=== PATIENT | male | born 1930 | race Caucasian/White ===

== ENCOUNTER 2018-06-09 10:42 | Inpatient (IN) | payer OTHER, MEDICARE ==
[2018-06-09 11:15] LABS: ARTERIAL BLOOD GAS BASE EXCESS -5.7 meq/l (-2-2); ARTERIAL BLOOD GAS PCO2 34.2 mmHg (35-45); ARTERIAL BLOOD GAS PO2 60.3 mmHg (68-100); ARTERIAL BLOOD GAS pH 7.35 (7.35-7.45)
[2018-06-09] MEDS ORDERED: CEFTRIAXONE 1 MG in DEXTROSE 5%-WATER - 50 ML IVPB ONE (11:17)
[2018-06-09] MEDS ORDERED: AZITHROMYCIN IVPB 500 MG in DEXTROSE 5%-WATER - 250 ML IVPB ONE (11:20)
[2018-06-09] MEDS ORDERED: ACETAMINOPHEN 1000 MG/100 ML VIAL (NON FORMULARY) IVPB ONE (11:22)
[2018-06-09] MEDS ORDERED: ACETAMINOPHEN INJECTION 100 ML IVPB ONE (11:27)
[2018-06-09] MEDS ORDERED: SODIUM CHLORIDE 500 ML IV STA (11:28)
[2018-06-09] MEDS ORDERED: ALBUTEROL SO4 2.5/IPRATROPIUM 0.5 INH SOL 3 ML VIAL.NEB. NEB ONE ×3 (11:32→15:34)
[2018-06-09 11:34] LABS: INR 1.08 (0.83-1.09); PROTHROMBIN TIME (PATIENT) 12.8 SEC (9.7-13.0)
[2018-06-09] MEDS ORDERED: AZITHROMYCIN IVPB 500 MG/250 ML BAG IVPB ONE ×2 (12:06→12:44)
[2018-06-09 12:18] LABS: BASO % 0.2 % (0-2.0); EOS % 0.1 % (0-4.5); HEMATOCRIT 38.2 % (35.4-49); HEMOGLOBIN 12.4 GM/dL (11.7-16.9); LYMPH % 2.5 % (8-40); MCHC 32.4 g/dl (32.0-35.9); MEAN CELL VOLUME 98.7 fl (80-96); MEAN PLT VOLUME 9.2 fl (7.5-11.1); MONO % 6.4 % (3.8-10.2); NEUT % 90.8 % (42.8-82.8); PLATELET COUNT 303 K/MM3 (134-434); RBC 3.87 M/mm3 (4.00-5.60); RDW 12.7 % (11.9-15.9); WHITE BLOOD COUNT 22.2 K/mm3 (4.0-10.0)
[2018-06-09] MEDS ORDERED: CEFTRIAXONE 1 GM/50 ML BAG ONE (12:26)
--- NOTE | 2018-06-09 12:43 | PDOC ---
History of Present Illness - General History Source: EMS, Family Exam Limitations: Clinical Condition - History of Present Illness Initial Comments: 06/09/18 12:49 Patient seen and evaluated immediately upon arrival. This H&P is being recorded prior to admission to the ICU. 88-year-old male with history of dementia, blindness, hypertension brought in by EMS for severe respiratory distress. Patient was in his baseline state of health 12 hours previously; he was noted to be lethargic and dyspneic upon awakening this a.m. Patient had developed dyspnea with minimal exertion will try and ambulate from bed to the bathroom and was noted by his son to become cyanotic and diaphoretic. Upon arrival of EMS, patient was noted to be hypoxemic with room air saturation of 78%. BiPAP was immediately applied with improvement in saturation to 92%. No other history is provided due to patient's clinical condition. Patient's son denies previous fever/chills/nausea/vomiting/ diarrhea/melena/hematochezia. REVIEW OF SYSTEMS Unable to obtain due to clinical condition EXAMINATION CONSTITUTIONAL: Patient is somnolent but easily arousable, tachypneic and tachycardic, able to speak short phrases only; HEAD: Normocephalic; atraumatic EYES: No scleral icterus, conjunctiva are pink ENMT: mm-dry NECK: Supple; non-tender; no jvd, no bruits CARD: Tachycardic; Normal S1, S2; no murmurs, rubs, or gallops RESP: Tachypneic and tachycardic; decreased breath sounds at the left base ABD: Soft, non-distended; non-tender; no palpable organomegaly, no palpable hernias EXT: + Minimal lower extremity edema bilaterally (left greater than right); bilateral onychomycosis is noted SKIN: Warm, dry, no petechia NEURO: Somnolent but easily arousable, follows commands, gait-deferred <Anand New - Last Filed: 06/09/18 13:16> <Maria G Hernandez - Last Filed: 06/09/18 13:19> - General Chief Complaint: Respiratory Distress Stated Complaint: DIFFCULTY BREATHING Time Seen by Provider: 06/09/18 11:06 Past History - Past Medical History Cardiac Disorders: Yes ("irregular Heart beat") COPD: No Dementia: Yes Hypercholesterolemia: Yes Psychiatric Problems: Yes (depression) - Immunization History Immunization Up to Date: Yes - Suicide/Smoking/Psychosocial Hx Smoking History: Never smoked Hx Alcohol Use: No Substance Use Type: None <Anand New - Last Filed: 06/09/18 13:16> <Maria G Hernandez - Last Filed: 06/09/18 13:19> - Past Medical History Allergies/Adverse Reactions: Allergies Allergy/AdvReac Type Severity Reaction Status Date / Time No Known Allergies Allergy Verified 06/09/18 10:48 Home Medications: Ambulatory Orders Aspirin [ASA -] 81 mg PO DAILY 07/28/13 Atorvastatin Ca [Lipitor -] 10 mg PO DAILY 07/28/13 Cholecalciferol (Vitamin D3) [Vitamin D] 1,000 unit PO DAILY 07/28/13 Diltiazem HCl [Cardizem] 120 mg PO DAILY 07/28/13 Duloxetine HCl [Cymbalta -] 30 mg PO DAILY 07/28/13 Hydrocodone/Ibuprofen [Vicoprofen 200-7.5 mg Tab] 1 each PO PRN 07/28/13 Magnesium 500 mg PO DAILY 07/28/13 Multivitamin with Minerals [Multiple Vitamin] 1 each PO DAILY 07/28/13 Pregabalin [Lyrica] 50 mg PO DAILY 07/28/13 Vitamin B Complex [B-50 Complex] 1 each PO DAILY 07/28/13 *Physical Exam - Vital Signs Last Vital Signs Temp Pulse Resp BP Pulse Ox 122 H 26 H 126/66 95 06/09/18 10:48 06/09/18 10:48 06/09/18 10:48 06/09/18 10:48 <Anand New - Last Filed: 06/09/18 13:16> - Vital Signs Last Vital Signs Temp Pulse Resp BP Pulse Ox 122 H 26 H 126/66 95 06/09/18 10:48 06/09/18 10:48 06/09/18 10:48 06/09/18 10:48 <Maria G Hernandez - Last Filed: 06/09/18 13:19> ED Treatment Course - LABORATORY CBC & Chemistry Diagram: 06/09/18 12:08 06/09/18 12:08 - ADDITIONAL ORDERS Additional order review: Laboratory Results 06/09/18 06/09/18 06/09/18 11:05 11:05 11:05 PT with INR 12.80 INR 1.08 D-Dimer Anticoagulation Therapy ABG pH ABG pCO2 at Pt Temp ABG pO2 at Pt Temp ABG HCO3 ABG O2 Sat (Measured) ABG O2 Content ABG Base Excess O2 Delivery Device Oxygen Flow Rate Vent Mode Vent Rate Mechanical Rate Pressure Support Vent Sodium Cancelled Potassium Cancelled Chloride Cancelled Carbon Dioxide Cancelled Anion Gap Cancelled BUN Cancelled Creatinine Cancelled Creat Clearance w eGFR Cancelled Random Glucose Cancelled Lactic Acid 6.4 H* Calcium Cancelled Total Bilirubin Cancelled AST Cancelled ALT Cancelled Alkaline Phosphatase Cancelled Creatine Kinase Cancelled Troponin I Cancelled B-Natriuretic Peptide Cancelled Total Protein Cancelled Albumin Cancelled 06/09/18 06/09/18 11:05 10:55 PT with INR INR D-Dimer 1945 H Anticoagulation Therapy No Result Required. ABG pH 7.35 ABG pCO2 at Pt Temp 34.2 L ABG pO2 at Pt Temp 60.3 L ABG HCO3 18.6 L ABG O2 Sat (Measured) 89.0 L ABG O2 Content 15.4 ABG Base Excess -5.7 L O2 Delivery Device No Result Required. Oxygen Flow Rate No Result Required. Vent Mode No Result Required. Vent Rate No Result Required. Mechanical Rate No Result Required. Pressure Support Vent No Result Required. Sodium Potassium Chloride Carbon Dioxide Anion Gap BUN Creatinine Creat Clearance w eGFR Random Glucose Lactic Acid Calcium Total Bilirubin AST ALT Alkaline Phosphatase Creatine Kinase Troponin I B-Natriuretic Peptide Total Protein Albumin 06/09/18 12:08 RBC 3.87 L MCV 98.7 H MCHC 32.4 RDW 12.7 MPV 9.2 Neutrophils % 90.8 H Lymphocytes % 2.5 L D Monocytes % 6.4 Eosinophils % 0.1 D Basophils % 0.2 - RADIOLOGY Radiology Studies Ordered: Category Date Time Status CHEST X-RAY PORTABLE* [RAD] Stat Radiology 06/09/18 10:53 Completed - Medications Given in the ED: ED Medications Discontinued Medications Generic Name Dose Route Start Last Admin Trade Name Freq PRN Reason Stop Dose Admin Acetaminophen 1,000 mg 06/09/18 11:22 06/09/18 11:31 Ofirmev Injection - IVPB 06/09/18 11:23 1,000 mg ONCE ONE Administration Albuterol/Ipratropium 1 amp 06/09/18 11:46 06/09/18 12:00 Duoneb - NEB 06/09/18 11:47 1 amp ONCE ONE Administration Ceftriaxone Sodium 1 mg/ 50 mls @ 100 mls/hr 06/09/18 11:17 06/09/18 12:32 Dextrose IVPB 06/09/18 11:46 100 mls/hr ONCE ONE Administration Azithromycin 500 mg/ Dextrose 250 mls @ 250 mls/hr 06/09/18 11:20 06/09/18 11 :40 IVPB 06/09/18 12:19 250 mls/hr ONCE ONE Administration Sodium Chloride 500 mls @ 500 mls/hr 06/09/18 11:28 06/09/18 12:00 Normal Saline - IV 06/09/18 12:27 500 mls/hr ASDIR STA Administration <Anand New - Last Filed: 06/09/18 13:16> - LABORATORY CBC & Chemistry Diagram: 06/09/18 12:08 06/09/18 12:08 - ADDITIONAL ORDERS Additional order review: Laboratory Results 06/09/18 06/09/18 06/09/18 12:08 11:05 11:05 PT with INR 12.80 INR 1.08 D-Dimer Anticoagulation Therapy ABG pH ABG pCO2 at Pt Temp ABG pO2 at Pt Temp ABG HCO3 ABG O2 Sat (Measured) ABG O2 Content ABG Base Excess O2 Delivery Device Oxygen Flow Rate Vent Mode Vent Rate Mechanical Rate Pressure Support Vent Sodium 140 Potassium 5.0 Chloride 108 H Carbon Dioxide 25 Anion Gap 8 BUN 31 H Creatinine 2.1 H Creat Clearance w eGFR 29.89 Random Glucose 184 H Lactic Acid 6.4 H* Calcium 9.4 Total Bilirubin 0.6 AST 37 ALT 21 Alkaline Phosphatase 115 Creatine Kinase 266 Troponin I 5.51 H* B-Natriuretic Peptide Total Protein 6.4 Albumin 3.2 L 06/09/18 06/09/18 06/09/18 11:05 11:05 10:55 PT with INR INR D-Dimer 1945 H Anticoagulation Therapy No Result Required. ABG pH 7.35 ABG pCO2 at Pt Temp 34.2 L ABG pO2 at Pt Temp 60.3 L ABG HCO3 18.6 L ABG O2 Sat (Measured) 89.0 L ABG O2 Content 15.4 ABG Base Excess -5.7 L O2 Delivery Device No Result Required. Oxygen Flow Rate No Result Required. Vent Mode No Result Required. Vent Rate No Result Required. Mechanical Rate No Result Required. Pressure Support Vent No Result Required. Sodium Cancelled Potassium Cancelled Chloride Cancelled Carbon Dioxide Cancelled Anion Gap Cancelled BUN Cancelled Creatinine Cancelled Creat Clearance w eGFR Cancelled Random Glucose Cancelled Lactic Acid Calcium Cancelled Total Bilirubin Cancelled AST Cancelled ALT Cancelled Alkaline Phosphatase Cancelled Creatine Kinase Cancelled Troponin I Cancelled B-Natriuretic Peptide Cancelled Total Protein Cancelled Albumin Cancelled 06/09/18 12:08 RBC 3.87 L MCV 98.7 H MCHC 32.4 RDW 12.7 MPV 9.2 Neutrophils % 90.8 H Lymphocytes % 2.5 L D Monocytes % 6.4 Eosinophils % 0.1 D Basophils % 0.2 - Medications Given in the ED: ED Medications Discontinued Medications Generic Name Dose Route Start Last Admin Trade Name Freq PRN Reason Stop Dose Admin Acetaminophen 1,000 mg 06/09/18 11:22 06/09/18 11:31 Ofirmev Injection - IVPB 06/09/18 11:23 1,000 mg ONCE ONE Administration Albuterol/Ipratropium 1 amp 06/09/18 11:46 06/09/18 12:00 Duoneb - NEB 06/09/18 11:47 1 amp ONCE ONE Administration Ceftriaxone Sodium 1 mg/ 50 mls @ 100 mls/hr 06/09/18 11:17 06/09/18 12:32 Dextrose IVPB 06/09/18 11:46 100 mls/hr ONCE ONE Administration Azithromycin 500 mg/ Dextrose 250 mls @ 250 mls/hr 06/09/18 11:20 06/09/18 11 :40 IVPB 06/09/18 12:19 250 mls/hr ONCE ONE Administration Sodium Chloride 500 mls @ 500 mls/hr 06/09/18 11:28 06/09/18 12:00 Normal Saline - IV 06/09/18 12:27 500 mls/hr ASDIR STA Administration <Maria G Hernandez - Last Filed: 06/09/18 13:19> Medical Decision Making - Critical Care Time Total Critical Care Time (minutes): 65 Critical Care Statement: The care of this patient involved high complexity decision making to prevent further life threatening deterioration of the patient 's condition and/or to evaluate & treat vital organ system(s) failure or risk of failure. - Medical Decision Making 06/09/18 12:57 88-year-old male with history of dementia,, blindness and hypertension presents with respiratory distress, fever of 102 and left lower lobe infiltrate on the chest x-ray. Community-acquired pneumonia suspected. Patient's condition stabilized on BiPAP. Blood cultures obtained. lactic acid is elevated. EKG shows ST segment depressions in 1 and aVL as well as Q waves in [address] segment elevation. I do not suspect acute ST elevation [place] at this time. We' ll administer ceftriaxone and Zithromax as well as IV fluid resuscitation. Patient seen and evaluated by Dr. Feliz of critical care. Accepted to the ICU. 06/09/18 13:13 Patient reassessed. Patient clinically improved with decreased respiratory rate of 25 at this time. On FiO2 of 60%, saturation is noted to be 96%. CBC reveals significant leukocytosis with predominance of neutrophils. CMP reveals elevated BUN and creatinine consistent with history of present illness. Troponin is noted to be 5.51. Will consult cardiology. There is no indication for PTCI at this time. We'll administer aspirin. Patient reports that he's been chest pain- free since arrival in the ED. Will admit to the ICU. <Anand New - Last Filed: 06/09/18 13:16> - Medical Decision Making 06/09/18 13:[address] Guerrero, spoke with the service, waiting for a call back. 06/09/18 13:[address]. Aguilera is aeronautical engineer, waiting for a call back. <Maria G Hernandez - Last Filed: 06/09/18 13:19> *DC/Admit/Observation/Transfer - Discharge Dispostion Decision to Admit order: Yes <Anand New - Last Filed: 06/09/18 13:16> <Maria G Hernandez - Last Filed: 06/09/18 13:19> Diagnosis at time of Disposition: JOSE (acute kidney injury) Pneumonia Qualifiers: Pneumonia type: due to unspecified organism Laterality: left Lung location: lower lobe of lung Qualified Code(s): J18.1 - Lobar pneumonia, unspecified organism Acute myocardial infarction Qualifiers: Myocardial infarction type: unspecified Involved coronary artery: unspecified coronary artery Qualified Code(s): I21.9 - Acute myocardial infarction, unspecified - Discharge Dispostion Condition at time of disposition: Critical - Referrals Referrals: Solitario Piña MD [Primary Care Provider] - - Patient Instructions - Post Discharge Activity
[2018-06-09 12:51] LABS: ALBUMIN 3.2 g/dl (3.4-5.0); ALK PHOS 115 U/L (45-117); ANION GAP 8 MMOL/L (8-16); BILIRUBIN,TOTAL 0.6 mg/dL (0.2-1); BLOOD UREA NITROGEN 31 mg/dL (7-18); CALCIUM 9.4 mg/dL (8.5-10.1); CHLORIDE 108 mmol/L (98-107); CO2 25 mmol/L (21-32); CREATININE 2.1 mg/dL (0.55-1.3); GLUCOSE,RANDOM 184 mg/dL (74-106); SGOT/AST 37 U/L (15-37); SGPT/ALT 21 U/L (13-61); SODIUM 140 mmol/L (136-145); TOT PROT 6.4 g/dl (6.4-8.2)
[2018-06-09] MEDS ORDERED: ASPIRIN 81 MG CHEWABLE TABLETS PO ONE (13:00)
[2018-06-09] MEDS ORDERED: ALBUTEROL SO4 0.083% IH SOL 2.5 MG/3 ML VIAL.NEB. NEB PRN (13:19)
[2018-06-09] MEDS ORDERED: ASPIRIN 81 MG CHEWABLE TABLETS ONE (13:24)
[2018-06-09 13:45] LABS: ANISOCYTOSIS 3+; MACROCYTOSIS 0; PLATELET ESTIMATE NORMAL
[2018-06-09 13:57] LABS: N-TERMINAL BNP 7664.6 pg/ml (5-450); PHOSPHOROUS 3.2 mg/dL (2.5-4.9)
[2018-06-09] MEDS ORDERED: HEPARIN NA (PORCINE) 5,000 UNITS/ML 1ML VIAL SQ SCH (14:00)
--- NOTE | 2018-06-09 14:06 | HP ---
Admitting History and Physical - Primary Care Physician PCP: Solitario Piña - Admission Chief Complaint: Unable to obtain History of Present Illness: Mr Millard is an 88 year old male with dementia who is coming in with shortness of breath. History comes from son at bedside as patient is in respiratory distress and has dementia and per son would not be able to give history. Son states that this morning patient got out of bed and fell back into bed, however this is not unusual as patient normally does not get up on first try. However today when he was able to get up he began to feel clammy and stated he couldn't breathe. Son says he had to support him more than normal and he was getting tired very rapidly. Because of this he was brought in. Son states that patient appeared in his normal state of health, he says he was complaining of chest pain however this is a chronic complaint for at least a year and he was seen in the outpatient setting for this. Son did not note fevers , sick contacts, difficulty swallowing, coughing, vomiting, diarrhea, constipation, change in urination habits, or swelling. 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 Cardiovascular: Yes: Hyperlipdemia - Past Surgical History Past Surgical History: Yes: Prostatectomy - Smoking History Smoking history: Never smoked - Alcohol/Substance Use Hx Alcohol Use: No History of Substance Use: reports: None - Social History Usual Living Arrangement: Yes: With Child ADL: Family Assistance History of Recent Travel: No Home Medications - Allergies Allergies/Adverse Reactions: Allergies Allergy/AdvReac Type Severity Reaction Status Date / Time No Known Allergies Allergy Verified 06/09/18 10:48 - Home Medications Home Medications: Ambulatory Orders Aspirin [ASA -] 81 mg PO DAILY 07/28/13 Atorvastatin Ca [Lipitor -] 10 mg PO DAILY 07/28/13 Cholecalciferol (Vitamin D3) [Vitamin D] 2,000 unit PO DAILY 07/28/13 Diltiazem HCl [Cardizem] 180 mg PO DAILY 07/28/13 Duloxetine HCl [Cymbalta -] 30 mg PO BID 07/28/13 Multivitamin with Minerals [Multiple Vitamin] 1 each PO DAILY 07/28/13 Vitamin B Complex [B-50 Complex] 1 each PO DAILY 07/28/13 Bioflavonoids, Orange [Orange Bioflavonoids] 1,000 mg PO DAILY 06/09/18 Cyanocobalamin [Vitamin B12 -] 500 mcg PO DAILY 06/09/18 Donepezil HCl [Aricept] 23 mg PO DAILY 06/09/18 Meloxicam [Mobic] 15 mg PO DAILY 06/09/18 Memantine HCl [Namenda Xr] 28 mg PO DAILY 06/09/18 Methylphenidate HCl [Ritalin LA] 10 mg PO DAILY 06/09/18 Turm/Ging/Manas/Yuc/Finesse/Laura/Hor [Tumersaid Tablet] 500 each PO BID 06/09/18 Vitamin E 400 unit PO DAILY 06/09/18 Family Disease History - Family Disease History Family Disease History: Other: Brother (dementia), Sister (dementia) Review of Systems Unable to obtain ROS, reason: dementia, sepsis Physical Examination Vital Signs: Vital Signs Temperature 38.8 C H 06/09/18 11:35 Pulse Rate 120 H 06/09/18 11:30 Respiratory Rate 22 H 06/09/18 11:30 Blood Pressure 126/64 06/09/18 11:30 O2 Sat by Pulse Oximetry (%) 95 06/09/18 10:48 Constitutional: Yes: Mild Distress, Obese Eyes: Yes: Conjunctiva Clear, PERRL HENT: Yes: Atraumatic, Normocephalic Cardiovascular: Yes: Tachycardia. No: Gallop, Murmur, Rub Respiratory: Yes: On BiPap, Rhonchi (bilateral), Tachypnea. No: Regular, CTA Bilaterally, Rales, Wheezes Gastrointestinal: Yes: Normal Bowel Sounds, Soft. No: Distention, Tenderness Extremities: Yes: WNL Edema: Yes Edema: LLE: 1+, RLE: 1+ Labs: CBC, BMP 06/09/18 12:08 06/09/18 12:08 Imaging - Results Chest X-ray: Report Reviewed, Image Reviewed Problem List - Problems (1) Septic shock Assessment/Plan: -secondary to pneumonia -as evidenced by fevers, leukocytosis, metabolic encephalopathy, JOSE, and respiratory failure -admit to ICU -received rocephin and zithromax in the ED -continue IVF Code(s): A41.9 - SEPSIS, UNSPECIFIED ORGANISM; R65.21 - SEVERE SEPSIS WITH SEPTIC SHOCK (2) Pneumonia Assessment/Plan: -suspect CAP -but with septic shock -consult ID, may need broad spectrum antibiotics -ICU admission Code(s): J18.9 - PNEUMONIA, UNSPECIFIED ORGANISM Qualifiers: Pneumonia type: due to unspecified organism Laterality: left Lung location: lower lobe of lung Qualified Code(s): J18.1 - Lobar pneumonia, unspecified organism (3) Acute myocardial infarction Assessment/Plan: -case d/w Dr Aguilera -elevated troponin concerning -given aspirin in the ED -start on heparin gtt Code(s): I21.9 - ACUTE MYOCARDIAL INFARCTION, UNSPECIFIED Qualifiers: Myocardial infarction type: unspecified Involved coronary artery: unspecified coronary artery Qualified Code(s): I21.9 - Acute myocardial infarction, unspecified (4) JOSE (acute kidney injury) Assessment/Plan: -hydration -monitor for improvement Code(s): N17.9 - ACUTE KIDNEY FAILURE, UNSPECIFIED (5) Acute respiratory failure with hypoxia Assessment/Plan: -support with BIPAP -management as above -may need intubation if worsens Code(s): J96.01 - ACUTE RESPIRATORY FAILURE WITH HYPOXIA (6) Acute metabolic encephalopathy Assessment/Plan: -secondary to septic shock -treat underlying cause Code(s): G93.41 - METABOLIC ENCEPHALOPATHY (7) Dementia Assessment/Plan: -monitor Code(s): F03.90 - UNSPECIFIED DEMENTIA WITHOUT BEHAVIORAL DISTURBANCE Assessment/Plan 62 minutes spent in critical care time with this patient
[2018-06-09] MEDS ORDERED: HEPARIN NA (PORCINE) 5,000 UNITS/ML 1ML VIAL IVPUSH PRN ×2 (14:18)
--- NOTE | 2018-06-09 14:18 | CONSULT ---
Consultation: REQUESTING PROVIDER: Anand New CONSULT REQUEST: We have been asked to medically evaluate this patient for acute respiratory failure secondary to sepsis/pneumonia. 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 Was in his baseline state of health 12 hours previously; he was noted to be lethargic and dyspneic upon awakening this a.m. Patient had developed dyspnea with minimal exertion will try and ambulate from bed to the bathroom and was noted by his son to become cyanotic and diaphoretic. Upon arrival of EMS , patient was noted to be hypoxemic with room air saturation of 78%. BiPAP was immediately applied with improvement in saturation to 92%. No other history is provided due to patient's clinical condition. Patient's son denies previous fever/chills/nausea/vomiting/diarrhea/melena/hematochezia. REVIEW OF SYSTEMS: As per HPI PHYSICAL EXAMINATION Vital Signs - 24 hr 06/09/18 06/09/18 06/09/18 10:48 11:30 11:35 Temperature 102 F H Pulse Rate 122 H Pulse Rate [ 120 H Apical] Respiratory 26 H 22 H Rate Blood Pressure 126/66 Blood Pressure 126/64 [Left Arm] O2 Sat by Pulse 95 Oximetry (%) GENERAL: Lethargic, arousable, alerts to voice and sternal rub HEAD: NC/AT EYES: Pinpoint pupils EARS, NOSE, THROAT: Moist mucous membranes. NECK: supple without lymphadenopathy LUNGS: Decreased breath sounds on left, diffuse wheezing/rhonchi HEART: Tachycardic S1S2 nl ABDOMEN: +bs, soft, NT, ND EXTREMITIES: 2+ pulses, warm, well-perfused, non-pitting edema b/l NEUROLOGICAL: Moves 4 extremities spontaneously and complies with commands, motor strength and sensation grossly intact throughout Laboratory Results - last 24 hr 06/09/18 06/09/18 06/09/18 10:55 11:05 11:05 WBC RBC Hgb Hct MCV MCH MCHC RDW Plt Count MPV Absolute Neuts (auto) Neutrophils % Lymphocytes % Monocytes % Eosinophils % Basophils % Nucleated RBC % PT with INR INR D-Dimer 1945 H Anticoagulation Therapy No Result Required. ABG pH 7.35 ABG pCO2 at Pt Temp 34.2 L ABG pO2 at Pt Temp 60.3 L ABG HCO3 18.6 L ABG O2 Sat (Measured) 89.0 L ABG O2 Content 15.4 ABG Base Excess -5.7 L O2 Delivery Device No Result Required. Oxygen Flow Rate No Result Required. Vent Mode No Result Required. Vent Rate No Result Required. Mechanical Rate No Result Required. Pressure Support Vent No Result Required. Sodium Cancelled Potassium Cancelled Chloride Cancelled Carbon Dioxide Cancelled Anion Gap Cancelled BUN Cancelled Creatinine Cancelled Creat Clearance w eGFR Cancelled Random Glucose Cancelled Lactic Acid Calcium Cancelled Total Bilirubin Cancelled AST Cancelled ALT Cancelled Alkaline Phosphatase Cancelled Creatine Kinase Cancelled CK-MB (CK-2) Troponin I Cancelled B-Natriuretic Peptide Cancelled Total Protein Cancelled Albumin Cancelled 06/09/18 06/09/18 06/09/18 11:05 11:05 12:08 WBC 22.2 H RBC 3.87 L Hgb 12.4 Hct 38.2 MCV 98.7 H MCH 32.0 MCHC 32.4 RDW 12.7 Plt Count 303 MPV 9.2 Absolute Neuts (auto) 20.2 H Neutrophils % 90.8 H Lymphocytes % 2.5 L D Monocytes % 6.4 Eosinophils % 0.1 D Basophils % 0.2 Nucleated RBC % 0 PT with INR 12.80 INR 1.08 D-Dimer Anticoagulation Therapy ABG pH ABG pCO2 at Pt Temp ABG pO2 at Pt Temp ABG HCO3 ABG O2 Sat (Measured) ABG O2 Content ABG Base Excess O2 Delivery Device Oxygen Flow Rate Vent Mode Vent Rate Mechanical Rate Pressure Support Vent Sodium Potassium Chloride Carbon Dioxide Anion Gap BUN Creatinine Creat Clearance w eGFR Random Glucose Lactic Acid 6.4 H* Calcium Total Bilirubin AST ALT Alkaline Phosphatase Creatine Kinase CK-MB (CK-2) Troponin I B-Natriuretic Peptide Total Protein Albumin 06/09/18 12:08 WBC RBC Hgb Hct MCV MCH MCHC RDW Plt Count MPV Absolute Neuts (auto) Neutrophils % Lymphocytes % Monocytes % Eosinophils % Basophils % Nucleated RBC % PT with INR INR D-Dimer Anticoagulation Therapy ABG pH ABG pCO2 at Pt Temp ABG pO2 at Pt Temp ABG HCO3 ABG O2 Sat (Measured) ABG O2 Content ABG Base Excess O2 Delivery Device Oxygen Flow Rate Vent Mode Vent Rate Mechanical Rate Pressure Support Vent Sodium 140 Potassium 5.0 Chloride 108 H Carbon Dioxide 25 Anion Gap 8 BUN 31 H Creatinine 2.1 H Creat Clearance w eGFR 29.89 Random Glucose 184 H Lactic Acid Calcium 9.4 Total Bilirubin 0.6 AST 37 ALT 21 Alkaline Phosphatase 115 Creatine Kinase 266 CK-MB (CK-2) 31.4 H Troponin I 5.51 H* B-Natriuretic Peptide Total Protein 6.4 Albumin 3.2 L Active Medications Generic Name Dose Route Start Last Admin Trade Name Freq PRN Reason Stop Dose Admin Albuterol Sulfate 1 amp 06/09/18 13:19 Ventolin 0.083% Nebulizer Soln - NEB Q4H PRN SHORT OF BREATH/WHEEZING Albuterol/Ipratropium 1 amp 06/09/18 16:00 Duoneb - NEB RQID FLAVIO Aspirin 81 mg 06/10/18 10:00 Asa - PO DAILY FLAVIO Atorvastatin Calcium 10 mg 06/10/18 10:00 Lipitor - PO DAILY FLA[facility]IO Chlorhexidine Gluconate 1 applic 06/09/18 22:00 Hibiclens For Decolonization - TP HS [facility]LA[facility]IO Cholecalciferol 1,000 unit 06/10/18 10:00 Vitamin D3 - PO DAILY FLA[facility]IO Heparin Sodium (Porcine) 5,000 unit 06/09/18 14:00 Heparin - SQ Q8H-IV [facility]LA[facility]IO Mupirocin 1 applic 06/09/18 22:00 Bactroban Ointment (For Decolonization) - NS 06/14/18 21:59 BID FLA[facility]IO ASSESSMENT/PLAN: 88 y/o M w/ PMHx dementia, legal blindness, HTN, unknown cardiac Hx (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 CXR shows LLL consolidation. #Pulmonary -acute hypoxic respiratory failure 2/2 PNA -on BiPAP, maintain O2sat > 90% -Duonebs standing/albuterol PRN -hold steroids at this time -BCx, Sputum Cx, urine antigens pending -repeat ABG in AM #ID -severe sepsis: T 102, HR 122, RR 26, stable BP, WBC 22.2, lactate 6.4 -LLL consolidation on CXR -ID consulted (Dr. Carlson following) -empiric azithromycin/ceftriaxone given -trend lactic acid -LR 75 #cardiac -troponin 5.51 -EKG w/ ST depressions in I and AVL suggesting acute ischemia, Q waves in 3 -full dose ASA given in ED -restart home ASA 81 in AM -started empiric heparin gtt -cardiology consulted, awaiting recs -repeat troponin EKG in PM -echo pending -BNP >7000 -I&O #renal -JOSE: Cr 2.1 (last known 1.3 in 2016) -U Cr, U lytes pending -avoid nephrotoxic agents -LR 75 #GI -LFTs wnl #FEN -LR @ 75 -monitor BMP -NPO on BiPAP #PPx -DVT: heparin gtt -GI: not indicated at this time #Dispo -We will continue to follow the patient in the ICU. Thank you for this consultative opportunity. Visit type - Emergency Visit Emergency Visit: Yes Care time: The patient presented to the Emergency Department on the above date and was hospitalized for further evaluation of their emergent condition. - New Patient This patient is new to me today: Yes Date on this admission: 06/09/18 - Critical Care Critical Care patient: Yes Total Critical Care Time (in minutes): 40 Critical Care Statement: The care of this patient involved high complexity decision making to prevent further life threatening deterioration of the patient 's condition and/or to evaluate & treat vital organ system(s) failure or risk of failure.
--- NOTE | 2018-06-09 14:22 | PN ---
Teaching Attending Note Name of Resident: Jareth Kauffman ATTENDING PHYSICIAN STATEMENT I saw and evaluated the patient. I reviewed the resident's note and discussed the case with the resident. I agree with the resident's findings and plan as documented. SUBJECTIVE: Pt seen and examined in the ER. Briefly, 88yo male with h/o HTN, blindness, Alzheimer's dementia who presents with respiratory distress. This AM, son found him lethargic, diaphoretic. EMS noted hypoxia to 78% on room air. Started on BiPAP with improvement. CXR showing LLL infiltrate. Pt unable to provide further history at this time. OBJECTIVE: Vital Signs Period Temp Pulse Resp BP Sys/Boyer Pulse Ox Last 24 Hr 102 F 120-122 22-26 126-126/64-66 95 Intake & Output 06/06/18 06/07/18 06/08/18 06/09/18 23:59 23:59 23:59 23:59 Intake Total 400 Balance 400 Weight 92.986 kg Gen: lethargic on BiPAP Heart: tachycardic, regular Lung: scattered rhonchi Abd: soft, nontender Ext: no edema CBC, BMP 06/09/18 12:08 06/09/18 12:08 Active Medications Albuterol Sulfate (Ventolin 0.083% Nebulizer Soln -) 1 amp NEB Q4H PRN PRN Reason: SHORT OF BREATH/WHEEZING Albuterol/Ipratropium (Duoneb -) 1 amp NEB RQID [facility] Aspirin (Asa -) 81 mg PO DAILY F[facility]IO Atorvastatin Calcium (Lipitor -) 10 mg PO DAILY [facility] Chlorhexidine Gluconate (Hibiclens For Decolonization -) 1 applic TP HS [facility] Cholecalciferol (Vitamin D3 -) 1,000 unit PO DAILY [facility] Heparin Sodium (Porcine) (Heparin -) 5,000 unit SQ Q8H-IV [facility] Mupirocin (Bactroban Ointment (For Decolonization) -) 1 applic NS BID FLA[facility]IO Stop: 06/14/18 21:59 ASSESSMENT AND PLAN: Acute Hypoxic Respiratory Failure Pneumonia Severe Sepsis Lactic Acidosis Acute Kidney Injury +Troponins/rule out Acute NSTEMI Dementia - IV antibiotics - f/u cultures, send urinary antigens - IVF - monitor urine output, creatinine - trend lactate - trend cardiac enzymes - echocardiogram - beta carole, ASA, statin - would start empiric anticoagulation - cardiology eval - O2 to keep Spo2 >90% - BiPAP to assist in work of breathing - aspiration precautions - DVT prophylaxis - ICU monitoring critical care time spent in reviewing chart, evaluating patient and formulating plan 35 min
--- NOTE | 2018-06-09 14:50 | EKG ---
Test Reason : Blood Pressure : / mmHG Vent. Rate : 110 BPM Atrial Rate : 110 BPM P-R Int : 166 ms QRS Dur : 080 ms QT Int : 358 ms P-R-T Axes : 029 009 031 degrees QTc Int : 484 ms SINUS TACHYCARDIA LOW VOLTAGE QRS CANNOT RULE OUT ANTERIOR INFARCT , AGE UNDETERMINED ABNORMAL ECG WHEN COMPARED WITH ECG OF 28-JUL-2013 20:17, PREMATURE ATRIAL COMPLEXES ARE NO LONGER PRESENT VENT. RATE HAS INCREASED BY 42 BPM MINIMAL CRITERIA FOR ANTERIOR INFARCT ARE NOW PRESENT ST NOW DEPRESSED IN LATERAL LEADS INVERTED T WAVES HAVE REPLACED NONSPECIFIC T WAVE ABNORMALITY IN INFERIOR LEADS Confirmed by MEAGAN GUZMAN, GARTH ([id number]) on 06/09/2018 2:50:12 PM Referred By: Confirmed By:GARTH RHODES MD
[2018-06-09] MEDS ORDERED: LACTATED RINGERS SOLUTION 1,000 ML/1,000 ML INFUS.BAG IV SCH (15:00)
--- NOTE | 2018-06-09 15:05 | CON.CARD ---
Cardiology Consult (text) - Consultation Consultation Note: cc: sob hpi: 88 m hx dementia, htn, hld, prostate ca here with sob. Hx from charts, pt lethargic. Pt was noted to have garg, sob, diaphoresis at home today so brought to ER. Found to have pna, sepsis, linda, nstemi. Being admitted to ICU. pmh: per hpi psh: nc social: ex tob fam: nc ros: unable to obtain 2/2 ams meds: Home Medications Medication Instructions Recorded Aspirin [ASA -] 81 mg PO DAILY 07/28/13 Atorvastatin Ca [Lipitor -] 10 mg PO DAILY 07/28/13 Cholecalciferol (Vitamin D3) 2,000 unit PO DAILY 07/28/13 [Vitamin D] Diltiazem HCl [Cardizem] 180 mg PO DAILY 07/28/13 Duloxetine HCl [Cymbalta -] 30 mg PO BID 07/28/13 Multivitamin with Minerals 1 each PO DAILY 07/28/13 [Multiple Vitamin] Vitamin B Complex [B-50 Complex] 1 each PO DAILY 07/28/13 Bioflavonoids, Alcona [Alcona 1,000 mg PO DAILY 06/09/18 Bioflavonoids] Cyanocobalamin [Vitamin B12 -] 500 mcg PO DAILY 06/09/18 Donepezil HCl [Aricept] 23 mg PO DAILY 06/09/18 Meloxicam [Mobic] 15 mg PO DAILY 06/09/18 Memantine HCl [Namenda Xr] 28 mg PO DAILY 06/09/18 Methylphenidate HCl [Ritalin LA] 10 mg PO DAILY 06/09/18 Turm/Ging/Manas/Yuc/Finesse/Laura/Hor 500 each PO BID 06/09/18 [Tumersaid Tablet] Vitamin E 400 unit PO DAILY 06/09/18 pe: Vital Signs Period Temp Pulse Resp BP Sys/Boyer Pulse Ox Last 24 Hr 102 F 120-122 22-26 126-126/64-66 95 nad no jvd rrr s1s2 no mrg bl rhonchi, on bipap, poor eff no le e/c/c abd nt nd pos bs no jaundice diaphoresis pos dp pt lethargic Laboratory Last Values WBC 22.2 K/mm3 (4.0-10.0) H 06/09/18 12:08 RBC 3.87 M/mm3 (4.00-5.60) L 06/09/18 12:08 Hgb 12.4 GM/dL (11.7-16.9) 06/09/18 12:08 Hct 38.2 % (35.4-49) 06/09/18 12:08 MCV 98.7 fl (80-96) H 06/09/18 12:08 MCH 32.0 pg (25.7-33.7) 06/09/18 12:08 MCHC 32.4 g/dl (32.0-35.9) 06/09/18 12:08 RDW 12.7 % (11.9-15.9) 06/09/18 12:08 Plt Count 303 K/MM3 (134-434) 06/09/18 12:08 MPV 9.2 fl (7.5-11.1) 06/09/18 12:08 Absolute Neuts (auto) 20.2 K/mm3 (1.5-8.0) H 06/09/18 12:08 Neutrophils % 90.8 % (42.8-82.8) H 06/09/18 12:08 Neutrophils % (Manual) 85.6 % (42.8-82.8) H 06/09/18 12:08 Band Neutrophils % 9.3 % 06/09/18 12:08 Lymphocytes % 2.5 % (8-40) L D 06/09/18 12:08 Lymphocytes % (Manual) 2.0 % (8-40) L 06/09/18 12:08 Monocytes % 6.4 % (3.8-10.2) 06/09/18 12:08 Monocytes % (Manual) 2 % (3.8-10.2) L 06/09/18 12:08 Eosinophils % 0.1 % (0-4.5) D 06/09/18 12:08 Eosinophils % (Manual) 0.0 % (0-4.5) 06/09/18 12:08 Basophils % 0.2 % (0-2.0) 06/09/18 12:08 Basophils % (Manual) 0.0 % (0-2.0) 06/09/18 12:08 Myelocytes % (Man) 0 % (0-2) 06/09/18 12:08 Promyelocytes % (Man) 0 % (0-2) 06/09/18 12:08 Blast Cells % (Manual) 0 % (0-0) 06/09/18 12:08 Nucleated RBC % 0 % (0-0) 06/09/18 12:08 Metamyelocytes 0 % (0-2) 06/09/18 12:08 Hypochromia 0 06/09/18 12:08 Platelet Estimate Normal 06/09/18 12:08 Polychromasia 1+ 06/09/18 12:08 Poikilocytosis 0 06/09/18 12:08 Anisocytosis 3+ 06/09/18 12:08 Microcytosis 3+ 06/09/18 12:08 Macrocytosis 0 06/09/18 12:08 Stomatocytes 1+ 06/09/18 12:08 PT with INR 12.80 SEC (9.7-13.0) 06/09/18 11:05 INR 1.08 (0.83-1.09) 06/09/18 11:05 D-Dimer 1945 ng/ml (0-500) H 06/09/18 11:05 Anticoagulation Therapy No Result Required. 06/09/18 10:55 ABG pH 7.35 (7.35-7.45) 06/09/18 10:55 ABG pCO2 at Pt Temp 34.2 mmHg (35-45) L 06/09/18 10:55 ABG pO2 at Pt Temp 60.3 mmHg (68-100) L 06/09/18 10:55 ABG HCO3 18.6 meq/L (22-26) L 06/09/18 10:55 ABG O2 Sat (Measured) 89.0 % (90-98.9) L 06/09/18 10:55 ABG O2 Content 15.4 % vol (15-22) 06/09/18 10:55 ABG Base Excess -5.7 meq/l (-2-2) L 06/09/18 10:55 O2 Delivery Device No Result Required. 06/09/18 10:55 Oxygen Flow Rate No Result Required. 06/09/18 10:55 Vent Mode No Result Required. 06/09/18 10:55 Vent Rate No Result Required. 06/09/18 10:55 Mechanical Rate No Result Required. 10/10/18 10:55 Pressure Support Vent No Result Required. 06/09/18 10:55 Sodium 140 mmol/L (136-145) 06/09/18 12:08 Potassium 5.0 mmol/L (3.5-5.1) 06/09/18 12:08 Chloride 108 mmol/L (98-107) H 06/09/18 12:08 Carbon Dioxide 25 mmol/L (21-32) 06/09/18 12:08 Anion Gap 8 MMOL/L (8-16) 06/09/18 12:08 BUN 31 mg/dL (7-18) H 06/09/18 12:08 Creatinine 2.1 mg/dL (0.55-1.3) H 06/09/18 12:08 Creat Clearance w eGFR 29.89 (>60) 06/09/18 12:08 Random Glucose 184 mg/dL (74-106) H 06/09/18 12:08 Lactic Acid 6.4 mmol/L (0.4-2.0) H* 06/09/18 11:05 Calcium 9.4 mg/dL (8.5-10.1) 06/09/18 12:08 Phosphorus 3.2 mg/dL (2.5-4.9) 06/09/18 12:08 Magnesium 2.0 mg/dL (1.8-2.4) 06/09/18 12:08 Total Bilirubin 0.6 mg/dL (0.2-1) 06/09/18 12:08 AST 37 U/L (15-37) 06/09/18 12:08 ALT 21 U/L (13-61) 06/09/18 12:08 Alkaline Phosphatase 115 U/L (45-117) 06/09/18 12:08 Creatine Kinase 266 IU/L (26-308) 06/09/18 12:08 Creatine Kinase Index 11.8 % (0.0-5.0) H* 06/09/18 12:08 CK-MB (CK-2) 31.4 ng/mL (0.5-3.6) H 06/09/18 12:08 Troponin I 5.51 ng/ml (0.00-0.05) H* 06/09/18 12:08 B-Natriuretic Peptide 7664.6 pg/ml (5-450) H 06/09/18 12:08 Total Protein 6.4 g/dl (6.4-8.2) 06/09/18 12:08 Albumin 3.2 g/dl (3.4-5.0) L 06/09/18 12:08 cxr: left pna ecg: sr, nl intervals, no ischemic changes echo: 12/2015: nl lv/rv, no sig valve path, nl rvsp mibi 03/2011: no ischemia/scar est cct 35 mins a/p: 88 m hx dementia, htn, hld, prostate ca here with sob. nstemi: -elevated trop and ckmb c/w nstemi -ecg unremarkable -cont statin, asa. agree with hep gtt for 72 hrs. -would also start plavix 600 loading, then 75 qd but pt unable to take po currently -check echo -trend ce's -tele -further ischemic eval based on clinical course sepsis, pna: -cont abx, ivfs -icu care sob: -no signs chf -likely due to mi/pna/sepsis. treatment as above. linda: -likely 2/2 sepsis -cont ivfs, monitor cr trend htn: -hold home dilt in setting of sepsis, monitor bp hld: -cont statin
[2018-06-09] MEDS ORDERED: HEPARIN INFUSION - 25,000 UNITS/500 ML INFUS.BAG IVPB ONE (15:10)
[2018-06-09] MEDS: HEPARIN - 25,000 UNIT in SODIUM CHLORIDE 495 ML IV SCH (15:45)
[2018-06-09] MEDS: ALBUTEROL SO4 2.5/IPRATROPIUM 0.5 INH SOL 3 ML VIAL.NEB. NEB SCH ×2 (15:45→20:37)
[2018-06-09 15:51] LABS: MAGNESIUM 2.1 mg/dL (1.8-2.4); N-TERMINAL BNP 13685.7 pg/ml (5-450); PHOSPHOROUS 3.1 mg/dL (2.5-4.9)
--- NOTE | 2018-06-09 17:18 | ECHO ---
Version: 1 Name: BRENT BARON Exam: Adult Echocardiogram Study Date: 06/09/2018, 3:11 PM Age: 88 Years MMode/2D Measurements & Calculations IVSd: 0.96 cm LVIDs: 3.3 cm LVIDd: 3.9 cm LVPWd: 1.34 cm LVOT diam: 2.11 cm Ao root diam: 3.4 cm Doppler Measurements & Calculations MV E max omari: 61.7 cm/sec Med E/e': 16.1 MV A max omari: 70.6 cm/sec Med Peak E' Omari: 3.8 cm/sec MV E/A: 0.87 Lat E/e': 13.3 Lat Peak E' Omari: 4.6 cm/sec MR max P.5 mmHg TR max omari: 239.8 cm/sec TR max P.0 mmHg Procedure A two-dimensional transthoracic echocardiogram with color flow and Doppler was performed. The study was technically difficult with many images being suboptimal in quality. Left Ventricle The left ventricle is not well visualized. The left ventricle is grossly normal size. Left ventricul ar systolic function is moderate to severely reduced. E/A reversal consistent with but not diagnostic o f poor LV compliance. Regional wall motion abnormalities cannot be excluded due to limited visualization. Right Ventricle The right ventricle is not well visualized. Atria The left atrium is not well visualized. Right atrium not well visualized. Mitral Valve The mitral valve is not well visualized. There is moderate mitral valve thickening. There is no mitr al valve stenosis. There is moderate mitral regurgitation. Tricuspid Valve There is moderate tricuspid valve thickening. There is no tricuspid stenosis. There is mild to moder ate tricuspid regurgitation. Right ventricular systolic pressure is normal. Aortic Valve The aortic valve is not well visualized. No hemodynamically significant valvular aortic stenosis. No aortic regurgitation is present. Pulmonic Valve The pulmonic valve is not well visualized. Great Vessels The aortic root is normal size. Pericardium/Pleura There is no pericardial effusion. Summary Statements The study was technically difficult with many images being suboptimal in quality. The left ventricle is not well visualized. The left ventricle is grossly normal size. Left ventricular systolic function is moderate to severely reduced. Regional wall motion abnormalities cannot be excluded due to limited visualization. There is moderate mitral valve thickening. There is moderate mitral regurgitation. There is mild to moderate tricuspid regurgitation. Right ventricular systolic pressure is normal. E/A reversal consistent with but not diagnostic of poor LV compliance MD Alex Atkins 06/09/2018, 5:17 PM Ordering Physician: Ariana Man Referring Physician: ARIANA MAN Performed By: Cecily Lawton
[2018-06-09] MEDS ORDERED: FLU VACCINE QUAD 60 MCG/0.5 ML (MDV 18-19) IM ONE (20:46)
[2018-06-09] MEDS: ATORVASTATIN CA 10 MG TABLET (FP) PO SCH (23:08)
[2018-06-09] MEDS: MUPIROCIN 2% TOPICAL OINTMENT FOR DECOLONIZATION NS SCH (23:08)
[2018-06-09] MEDS: CHLORHEXIDINE GLUCONATE 4% CLEANSER FOR DECOLONIZATION TP SCH (23:11)
[2018-06-09] MEDS ORDERED: PT OWN MED DRAWER 7, Y5N ONE (23:42)
[2018-06-10 06:06] LABS: BASO % 0.3 % (0-2.0); EOS % 0.7 % (0-4.5); HEMATOCRIT 34.1 % (35.4-49); LYMPH % 10.9 % (8-40); MCH 31.7 pg (25.7-33.7); MCHC 32.2 g/dl (32.0-35.9); MEAN CELL VOLUME 98.7 fl (80-96); MEAN PLT VOLUME 9.3 fl (7.5-11.1); MONO % 8.4 % (3.8-10.2); NEUT % 79.7 % (42.8-82.8); PLATELET COUNT 259 K/MM3 (134-434); RBC 3.46 M/mm3 (4.00-5.60); RDW 13.2 % (11.9-15.9); WHITE BLOOD COUNT 16.9 K/mm3 (4.0-10.0)
[2018-06-10 06:18] LABS: ARTERIAL BLOOD GAS PCO2 36.4 mmHg (35-45); ARTERIAL BLOOD GAS pH 7.43 (7.35-7.45)
[2018-06-10 06:19] LABS: ALLENS TEST POSITIVE; ARTERIAL BLD GAS O2 SATURATION 98.2 % (90-98.9); ARTERIAL BLOOD GAS BASE EXCESS 0.3 meq/l (-2-2)
[2018-06-10 06:28] LABS: ANION GAP 8 MMOL/L (8-16); BLOOD UREA NITROGEN 35 mg/dL (7-18); CALCIUM 8.5 mg/dL (8.5-10.1); CHLORIDE 106 mmol/L (98-107); CHOLESTEROL 136 mg/dL (50-200); CO2 27 mmol/L (21-32); GLUCOSE,RANDOM 138 mg/dL (74-106); HDL CHOLESTEROL 53 mg/dL (40-60); MAGNESIUM 2.1 mg/dL (1.8-2.4); PHOSPHOROUS 3.9 mg/dL (2.5-4.9); POTASSIUM 4.8 mmol/L (3.5-5.1); SODIUM 140 mmol/L (136-145); TRIGLYCERIDES 97 mg/dL (0-150)
[2018-06-10] MEDS: ALBUTEROL SO4 2.5/IPRATROPIUM 0.5 INH SOL 3 ML VIAL.NEB. NEB SCH ×4 (08:00→20:00)
[2018-06-10] MEDS ORDERED: PT OWN MED DRAWER 7, Y5N ONE ×2 (09:22→16:16)
[2018-06-10] MEDS ORDERED: DEXTROSE 5%-WATER - 50 ML IVPB ONE ×2 (09:23→09:25)
[2018-06-10] MEDS ORDERED: cefTRIAXone SODIUM 1 GM VIAL ONE ×2 (09:23→09:24)
[2018-06-10] MEDS: AZITHROMYCIN IVPB 500 MG/250 ML BAG IVPB SCH (09:36)
[2018-06-10] MEDS: CEFTRIAXONE 1 GM in DEXTROSE 5%-WATER - 50 ML IVPB SCH (09:37)
[2018-06-10] MEDS: CHOLECALCIFEROL (VITAMIN D3) 1,000 UNIT TABLET (FP) PO SCH (09:37)
[2018-06-10] MEDS: MUPIROCIN 2% TOPICAL OINTMENT FOR DECOLONIZATION NS SCH ×2 (09:37→21:38)
[2018-06-10] MEDS ORDERED: CLOPIDOGREL BISULFATE 300 MG TABLET ONE (09:41)
[2018-06-10] MEDS ORDERED: CLOPIDOGREL BISULFATE 300 MG TABLET PO ONE (09:45)
[2018-06-10] MEDS ORDERED: ASPIRIN 81 MG CHEWABLE TABLETS PO SCH (10:00)
[2018-06-10] MEDS ORDERED: ASPIRIN 300 MG SUPP.RECT RC SCH (10:00)
--- NOTE | 2018-06-10 11:34 | PN ---
Progress Note, Physician Chief Complaint: Mr Millard says he is doing well today. Denies cp, sob, n/v. Speech slightly muffled secondary to being on bipap. - Current Medication List Current Medications: Active Medications Albuterol Sulfate (Ventolin 0.083% Nebulizer Soln -) 1 amp NEB Q4H PRN PRN Reason: SHORT OF BREATH/WHEEZING Albuterol/Ipratropium (Duoneb -) 1 amp NEB RQID [facility] Last Admin: 06/10/18 08:00 Dose: 1 amp Aspirin (Asa -) 300 mg RC DAILY [facility] Last Admin: 06/10/18 09:37 Dose: 300 mg Atorvastatin Calcium (Lipitor -) 10 mg PO HS [facility]LA[facility]IO Last Admin: 06/09/18 23:08 Dose: 10 mg Chlorhexidine Gluconate (Hibiclens For Decolonization -) 1 applic TP HS [facility] Last Admin: 06/09/18 23:11 Dose: 1 applic Cholecalciferol (Vitamin D3 -) 1,000 unit PO DAILY [facility] Last Admin: 06/10/18 09:37 Dose: 1,000 unit Heparin Sodium (Porcine) (Heparin -) 1,000 unit IVPUSH PRN PRN PRN Reason: Heparin Heparin Sodium (Porcine) (Heparin -) 5,000 unit IVPUSH PRN PRN PRN Reason: Heparin Heparin Sodium (Porcine) 25, (000 unit/ Sodium Chloride) 500 mls @ 20 mls/hr IV TITR FLAVIO; Protocol Last Admin: 06/09/18 15:45 Dose: 1,000 unit/hr, 20 mls/hr Lactated Ringer's (Lactated Ringers Solution) 1,000 ml in 1,000 mls @ 75 mls/ hr IV ASDIR [facility]IO Last Admin: 06/09/18 15:45 Dose: 75 mls/hr Azithromycin (Zithromax 500mg Ivpb (Pre-Docked)) 500 mg in 250 mls @ 250 mls/ hr IVPB DAILY [facility] Last Admin: 06/10/18 09:36 Dose: 250 mls/hr Ceftriaxone Sodium 1 gm/ (Dextrose) 50 mls @ 100 mls/hr IVPB DAILY [facility]; Protocol Last Admin: 06/10/18 09:37 Dose: 100 mls/hr Mupirocin (Bactroban Ointment (For Decolonization) -) 1 applic NS BID [facility]LAVIO Stop: 06/14/18 21:59 Last Admin: 06/10/18 09:37 Dose: 1 applic - Objective Vital Signs: Vital Signs Temperature 36.8 C 06/10/18 10:05 Pulse Rate 104 H 06/10/18 10:00 Respiratory Rate 28 H 06/10/18 10:00 Blood Pressure 121/94 06/10/18 10:00 O2 Sat by Pulse Oximetry (%) 95 06/10/18 10:58 Constitutional: Yes: No Distress, Calm, Obese Cardiovascular: Yes: Regular Rate and Rhythm. No: Gallop, Murmur, Rub Respiratory: Yes: Regular, On BiPap, Rhonchi (L base). No: CTA Bilaterally, Rales, Wheezes Gastrointestinal: Yes: Normal Bowel Sounds, Soft. No: Distention, Tenderness Extremities: Yes: WNL Edema: No Labs: CBC, BMP 06/10/18 05:30 06/10/18 05:30 INR, PTT INR 1.08 (0.83-1.09) 06/09/18 11:05 Problem List - Problems (1) Septic shock Code(s): A41.9 - SEPSIS, UNSPECIFIED ORGANISM; R65.21 - SEVERE SEPSIS WITH SEPTIC SHOCK (2) Pneumonia Code(s): J18.9 - PNEUMONIA, UNSPECIFIED ORGANISM Qualifiers: Pneumonia type: due to unspecified organism Laterality: left Lung location: lower lobe of lung Qualified Code(s): J18.1 - Lobar pneumonia, unspecified organism (3) Acute myocardial infarction Code(s): I21.9 - ACUTE MYOCARDIAL INFARCTION, UNSPECIFIED Qualifiers: Myocardial infarction type: unspecified Involved coronary artery: unspecified coronary artery Qualified Code(s): I21.9 - Acute myocardial infarction, unspecified (4) JOES (acute kidney injury) Code(s): N17.9 - ACUTE KIDNEY FAILURE, UNSPECIFIED (5) Acute respiratory failure with hypoxia Code(s): J96.01 - ACUTE RESPIRATORY FAILURE WITH HYPOXIA (6) Acute metabolic encephalopathy Code(s): G93.41 - METABOLIC ENCEPHALOPATHY (7) Dementia Code(s): F03.90 - UNSPECIFIED DEMENTIA WITHOUT BEHAVIORAL DISTURBANCE Assessment/Plan (1) Septic shock Assessment/Plan: -improving -case d/w ID and pulmonary -continue antibiotics Code(s): A41.9 - SEPSIS, UNSPECIFIED ORGANISM; R65.21 - SEVERE SEPSIS WITH SEPTIC SHOCK (2) Pneumonia Assessment/Plan: -continue rocephin and zithromax -patient much improved today Code(s): J18.9 - PNEUMONIA, UNSPECIFIED ORGANISM Qualifiers: Pneumonia type: due to unspecified organism Laterality: left Lung location: lower lobe of lung Qualified Code(s): J18.1 - Lobar pneumonia, unspecified organism (3) Acute myocardial infarction Assessment/Plan: -case d/w Dr Aguilera -troponins peaked -continue heparin gtt Code(s): I21.9 - ACUTE MYOCARDIAL INFARCTION, UNSPECIFIED Qualifiers: Myocardial infarction type: unspecified Involved coronary artery: unspecified coronary artery Qualified Code(s): I21.9 - Acute myocardial infarction, unspecified (4) JOSE (acute kidney injury) Assessment/Plan: -minimal improvement -will d/w Dr Piña if history of CKD and this is baseline Code(s): N17.9 - ACUTE KIDNEY FAILURE, UNSPECIFIED (5) Acute respiratory failure with hypoxia Assessment/Plan: -support with BIPAP -started on solumedrol Code(s): J96.01 - ACUTE RESPIRATORY FAILURE WITH HYPOXIA (6) Acute metabolic encephalopathy Assessment/Plan: -much improved today -treat underlying cause Code(s): G93.41 - METABOLIC ENCEPHALOPATHY (7) Dementia Assessment/Plan: -monitor Code(s): F03.90 - UNSPECIFIED DEMENTIA WITHOUT BEHAVIORAL DISTURBANCE 34 minutes spent in critical care of this patient
--- NOTE | 2018-06-10 11:43 | PN ---
Progress Note (short form) - Note Progress Note: ID Consult dictated Hypoxemic resp failure LLL pneumonia likely community acquired v. atypical pneumonia Sepsis secondary to pneumonia Lactic acidosis NSTEMI Azotemia OBS Await c/s Continue ceftriaxone/ zithromax
--- NOTE | 2018-06-10 12:06 | PN ---
Progress Note (short form) - Note Progress Note: s: on bipap, denies sob cp palps dizzy o: Vital Signs Temp 98.2 F 06/10/18 10:05 Pulse 104 H 06/10/18 10:00 Resp 28 H 06/10/18 10:00 BP 121/94 06/10/18 10:00 Pulse Ox 95 06/10/18 10:58 Intake & Output 06/09/18 06/10/18 06/10/18 23:59 11:59 23:59 Intake Total 300 1112 Balance 300 1112 Weight 212 lb 11.937 oz 212 lb 11.937 oz Intake: IV 1112 LACTATED RINGERS SOLUTION 1112 1,000 ml In 1,000 ml @ 75 mls/hr IV ASDIR FLAVIO Rx #:[id number] IVPB 300 Other: Voiding Method Incontinent Diaper # Unmeasured Voids Void 2 1 Bowel Movement No Height 5 ft 6 in Body Mass Index (BMI) 34.3 Weight Measurement Method Built in [facility] Built in [facility] nad no jvd rrr s1s2 no mrg bl rhonchi, on bipap, poor eff no le e/c/c abd nt nd pos bs no jaundice diaphoresis lethargic Current Medications Generic Name Dose Route Start Last Admin Trade Name Freq PRN Reason Stop Dose Admin Albuterol Sulfate 1 amp 06/09/18 13:19 Ventolin 0.083% Nebulizer Soln - NEB Q4H PRN SHORT OF BREATH/WHEEZING Albuterol/Ipratropium 1 amp 06/09/18 16:00 06/10/18 11:38 Duoneb - NEB 1 amp RQID FLAVIO Administration Aspirin 300 mg 06/10/18 10:00 06/10/18 09:37 Asa - RC 300 mg DAILY FLAVIO Administration Atorvastatin Calcium 10 mg 06/09/18 22:00 06/09/18 23:08 Lipitor - PO 10 mg HS FLAVIO Administration Chlorhexidine Gluconate 1 applic 06/09/18 22:00 06/09/18 23:11 Hibiclens For Decolonization - TP 1 applic HS FLAVIO Administration Cholecalciferol 1,000 unit 06/10/18 10:00 06/10/18 09:37 Vitamin D3 - PO 1,000 unit DAILY FLAVIO Administration Heparin Sodium (Porcine) 1,000 unit 06/09/18 14:18 Heparin - IVPUSH PRN PRN Heparin Heparin Sodium (Porcine) 5,000 unit 06/09/18 14:18 Heparin - IVPUSH PRN PRN Heparin Heparin Sodium (Porcine) 25, 500 mls @ 20 mls/hr 06/09/18 14:30 06/09/18 15: 45 000 unit/ Sodium Chloride IV 1,000 unit/hr TITR FLAVIO 20 mls/hr Administration Protocol 1,000 UNIT/HR Lactated Ringer's 1,000 ml in 1,000 mls @ 75 mls/hr 06/09/18 15:00 06/09/18 15:45 Lactated Ringers Solution IV 75 mls/hr ASDIR FLAVIO Administration Azithromycin 500 mg in 250 mls @ 250 mls/hr 06/10/18 10:00 06/10/18 09:36 Zithromax 500mg Ivpb (Pre-Docked) IVPB 250 mls/hr DAILY FLAVIO Administration Ceftriaxone Sodium 1 gm/ 50 mls @ 100 mls/hr 06/10/18 10:00 06/10/18 09:37 Dextrose IVPB 100 mls/hr DAILY FLAVIO Administration Protocol Mupirocin 1 applic 06/09/18 22:00 06/10/18 09:37 Bactroban Ointment (For Decolonization) - NS 06/14/18 21:59 1 applic BID FLAVIO Administration Laboratory Last Values WBC 16.9 K/mm3 (4.0-10.0) H 06/10/18 05:30 RBC 3.46 M/mm3 (4.00-5.60) L 06/10/18 05:30 Hgb 11.0 GM/dL (11.7-16.9) L 06/10/18 05:30 Hct 34.1 % (35.4-49) L 06/10/18 05:30 MCV 98.7 fl (80-96) H 06/10/18 05:30 MCH 31.7 pg (25.7-33.7) 06/10/18 05:30 MCHC 32.2 g/dl (32.0-35.9) 06/10/18 05:30 RDW 13.2 % (11.9-15.9) 06/10/18 05:30 Plt Count 259 K/MM3 (134-434) 06/10/18 05:30 MPV 9.3 fl (7.5-11.1) 06/10/18 05:30 Absolute Neuts (auto) 13.5 K/mm3 (1.5-8.0) H 06/10/18 05:30 Neutrophils % 79.7 % (42.8-82.8) 06/10/18 05:30 Neutrophils % (Manual) 85.6 % (42.8-82.8) H 06/09/18 12:08 Band Neutrophils % 9.3 % 06/09/18 12:08 Lymphocytes % 10.9 % (8-40) D 06/10/18 05:30 Lymphocytes % (Manual) 2.0 % (8-40) L 06/09/18 12:08 Monocytes % 8.4 % (3.8-10.2) 06/10/18 05:30 Monocytes % (Manual) 2 % (3.8-10.2) L 06/09/18 12:08 Eosinophils % 0.7 % (0-4.5) D 06/10/18 05:30 Eosinophils % (Manual) 0.0 % (0-4.5) 06/09/18 12:08 Basophils % 0.3 % (0-2.0) 06/10/18 05:30 Basophils % (Manual) 0.0 % (0-2.0) 06/09/18 12:08 Myelocytes % (Man) 0 % (0-2) 06/09/18 12:08 Promyelocytes % (Man) 0 % (0-2) 06/09/18 12:08 Blast Cells % (Manual) 0 % (0-0) 06/09/18 12:08 Nucleated RBC % 0 % (0-0) 06/10/18 05:30 Metamyelocytes 0 % (0-2) 06/09/18 12:08 Hypochromia 0 06/09/18 12:08 Platelet Estimate Normal 06/09/18 12:08 Polychromasia 1+ 06/09/18 12:08 Poikilocytosis 0 06/09/18 12:08 Anisocytosis 3+ 06/09/18 12:08 Microcytosis 3+ 06/09/18 12:08 Macrocytosis 0 06/09/18 12:08 Stomatocytes 1+ 06/09/18 12:08 PT with INR 12.80 SEC (9.7-13.0) 06/09/18 11:05 INR 1.08 (0.83-1.09) 06/09/18 11:05 PTT (Actin FS) 68.3 SECONDS (25.2-36.5) H 06/09/18 21:30 D-Dimer 1945 ng/ml (0-500) H 06/09/18 11:05 Anticoagulation Therapy No Result Required. 06/10/18 06:10 Puncture Site Right radial 06/10/18 06:10 ABG pH 7.43 (7.35-7.45) 06/10/18 06:10 ABG pCO2 at Pt Temp 36.4 mmHg (35-45) 06/10/18 06:10 ABG pO2 at Pt Temp 107.0 mmHg (68-100) H D 06/10/18 06:10 ABG HCO3 23.8 meq/L (22-26) 06/10/18 06:10 ABG O2 Sat (Measured) 98.2 % (90-98.9) 06/10/18 06:10 ABG O2 Content 14.4 % vol (15-22) L 06/10/18 06:10 ABG Base Excess 0.3 meq/l (-2-2) 06/10/18 06:10 Antonio Test Positive 06/10/18 06:10 O2 Delivery Device No Result Required. 06/10/18 06:10 Oxygen Flow Rate 60 06/10/18 06:10 Vent Mode No Result Required. 06/10/18 06:10 Vent Rate 14 06/10/18 06:10 Mechanical Rate No Result Required. 06/10/18 06:10 Pressure Support Vent No Result Required. 06/10/18 06:10 Sodium 140 mmol/L (136-145) 06/10/18 05:30 Potassium 4.8 mmol/L (3.5-5.1) 06/10/18 05:30 Chloride 106 mmol/L (98-107) 06/10/18 05:30 Carbon Dioxide 27 mmol/L (21-32) 06/10/18 05:30 Anion Gap 8 MMOL/L (8-16) 06/10/18 05:30 BUN 35 mg/dL (7-18) H 06/10/18 05:30 Creatinine 2.0 mg/dL (0.55-1.3) H 06/10/18 05:30 Creat Clearance w eGFR 31.62 (>60) 06/10/18 05:30 Random Glucose 138 mg/dL (74-106) H 06/10/18 05:30 Lactic Acid 3.6 mmol/L (0.4-2.0) H* 06/09/18 14:59 Calcium 8.5 mg/dL (8.5-10.1) 06/10/18 05:30 Phosphorus 3.9 mg/dL (2.5-4.9) 06/10/18 05:30 Magnesium 2.1 mg/dL (1.8-2.4) 06/10/18 05:30 Total Bilirubin 0.6 mg/dL (0.2-1) 06/09/18 12:08 AST 37 U/L (15-37) 06/09/18 12:08 ALT 21 U/L (13-61) 06/09/18 12:08 Alkaline Phosphatase 115 U/L (45-117) 06/09/18 12:08 Creatine Kinase 266 IU/L (26-308) 06/09/18 12:08 Creatine Kinase Index 11.8 % (0.0-5.0) H* 06/09/18 12:08 CK-MB (CK-2) 31.4 ng/mL (0.5-3.6) H 06/09/18 12:08 Troponin I 22.90 ng/ml (0.00-0.05) H* 06/10/18 05:30 B-Natriuretic Peptide 90244.7 pg/ml (5-450) H 06/09/18 14:59 Total Protein 6.4 g/dl (6.4-8.2) 06/09/18 12:08 Albumin 3.2 g/dl (3.4-5.0) L 06/09/18 12:08 Triglycerides 97 mg/dL (0-150) 06/10/18 05:30 Cholesterol 136 mg/dL (50-200) 06/10/18 05:30 Total LDL Cholesterol 73 mg/dL (5-100) 06/10/18 05:30 HDL Cholesterol 53 mg/dL (40-60) 06/10/18 05:30 TSH 1.73 uIU/ml (0.358-3.74) 06/09/18 14:59 cxr: left pna ecg: sr, nl intervals, no ischemic changes echo: 12/2015: nl lv/rv, no sig valve path, nl rvsp echo 05/2018: tds; mod-sev dec lvef, rv tds, mod mr, mild-mod tr, nl rvsp tele: sr mibi 03/2011: no ischemia/scar est cct 35 mins a/p: 88 m hx dementia, htn, hld, prostate ca here with sob. nstemi: -elevated trop and ckmb c/w nstemi -ecg unremarkable -cont statin, asa, plavix. agree with hep gtt for 72 hrs. -echo shows newly reduced lvef, caution with ivfs -will start chf regimen with lisette/bb after acute infection issues resolve -tele -further ischemic eval based on clinical course-->now dnr/dni per family sepsis, pna: -cont abx -icu care sob: -no signs chf -likely due to mi/pna/sepsis. treatment as above. linda: -likely 2/2 sepsis -monitor cr trend htn: -hold home dilt in setting of sepsis, monitor bp hld: -cont statin
--- NOTE | 2018-06-10 12:08 | EKG ---
Test Reason : Blood Pressure : / mmHG Vent. Rate : 108 BPM Atrial Rate : 108 BPM P-R Int : 164 ms QRS Dur : 078 ms QT Int : 374 ms P-R-T Axes : 045 011 040 degrees QTc Int : 501 ms SINUS TACHYCARDIA WITH PREMATURE SUPRAVENTRICULAR COMPLEXES LOW VOLTAGE QRS BORDERLINE ECG WHEN COMPARED WITH ECG OF 09-JUN-2018 20:54, MINIMAL CRITERIA FOR ANTERIOR INFARCT ARE NO LONGER PRESENT BORDERLINE CRITERIA FOR INFERIOR INFARCT ARE NO LONGER PRESENT Confirmed by NOAH PERRY MD ([id number]) on 06/10/2018 12:08:01 PM Referred By: RUDDY KIRK Confirmed By:NOAH PERRY MD
--- NOTE | 2018-06-10 12:10 | EKG ---
Test Reason : Blood Pressure : / mmHG Vent. Rate : 085 BPM Atrial Rate : 085 BPM P-R Int : 152 ms QRS Dur : 082 ms QT Int : 414 ms P-R-T Axes : 053 -12 025 degrees QTc Int : 492 ms SINUS RHYTHM WITH PREMATURE ATRIAL COMPLEXES LOW VOLTAGE QRS INFERIOR INFARCT , AGE UNDETERMINED CANNOT RULE OUT ANTERIOR INFARCT (CITED ON OR BEFORE 09-JUN-2018) ABNORMAL ECG WHEN COMPARED WITH ECG OF 09-JUN-2018 10:57, PREMATURE ATRIAL COMPLEXES ARE NOW PRESENT INFERIOR INFARCT IS NOW PRESENT Confirmed by NOAH PERRY MD ([id number]) on 06/10/2018 12:09:51 PM Referred By: Confirmed By:NOAH PERRY MD
[2018-06-10] MEDS ORDERED: morphine CARPU-JECT 2 MG/1 ML DISP.SYRIN IVPUSH ONE (12:11)
[2018-06-10] MEDS ORDERED: morphine SULFATE 4 MG/ML VIAL ONE (12:20)
--- NOTE | 2018-06-10 13:01 | CONS ---
INFECTIOUS DISEASE CONSULTATION DATE OF CONSULTATION: DATE OF DICTATION: 06/10/2018 The patient is an 88-year-old male evaluated for pneumonia and sepsis. History was obtained from the chart as he cannot give a history. The patient resides at home. He suffers from dementia. He had witnessed respiratory distress while at home according to the family member. He had been unable to ambulate and had become cyanotic. EMS was summoned. He was found to have an O2 saturation of 78%. He was placed on BiPAP. The patient was evaluated in the emergency room where a chest x-ray showed left lower lobe infiltrate. He was found to have positive troponins and a suspected [id number] myocardial infarction. He was transferred to the intensive care unit where he continues on BiPAP mask. His course was complicated by high-grade fever to 102, white blood cell count 22,000, and lactic acidosis. He was empirically treated with Zithromax and ceftriaxone. Patient is unable to give a history secondary to his dementia and his respiratory distress. According to the chart, he has had no recent hospitalizations, no recent febrile illness, no known ill contacts. He is a nonsmoker. He received influenza vaccine today; unclear whether or not he received pneumococcal vaccine. PAST MEDICAL HISTORY: Positive for dementia, hypertension, prostate cancer. ALLERGIES: No known allergies. MEDICATIONS: Aspirin, Lipitor, Cardizem, Cymbalta, Lyrica. SOCIAL HISTORY: Resides at home. No recent hospitalizations. Non-smoker, non-drinker. SYSTEMS REVIEW: Neurologic: Positive for dementia. No loss of consciousness, seizure activity, or focal weakness. Cardiac: Positive for chest pain. Respiratory: As per HPI. Gastrointestinal: Negative vomiting or diarrhea. Genitourinary: History of prostate cancer. No reports of dysuria or hematuria. LABORATORY DATA: White count 22,000 with left shift, hematocrit 34.1, platelet count 259. BUN 35, creatinine 2.0. Lactic acid 3.6. Blood culture is pending. Chest x-ray shows a left lower lobe infiltrate. Influenza swab was negative. PHYSICAL EXAMINATION: General: He is awake and alert. He complains of chest discomfort. His breathing is slightly labored on a BiPAP mask. Vital Signs: Temperature 98.2, T-max 102; blood pressure 121/94; pulse 104, regular; respirations 28 per minute. HEENT: Sclerae are anicteric. Heart: Sounds S1, S2. Lungs: Diminished breath sounds bilaterally. Abdomen: Soft and nontender. Extremities: Positive for edema. IMPRESSION: 1. Hypoxemic respiratory failure on bi-level positive airway pressure. 2. Left lower lobe pneumonia, likely community acquired versus atypical pneumonia. 3. Sepsis secondary to pneumonia. 4. Lactic acidosis. 5. [id number] myocardial infarction. 6. Azotemia. 7. Dementia. Await sepsis workup. Continue empiric coverage for community-acquired versus atypical pneumonia with Zithromax and ceftriaxone. Continue BiPAP. ICU monitoring. Prognosis is guarded. CRITICAL CARE TIME SPENT: Thirty-five minutes. Thank you for the kind referral. NESTOR ABDI M.D. [id number]
[2018-06-10] MEDS ORDERED: LACTATED RINGERS SOLUTION 1,000 ML/1,000 ML INFUS.BAG IV SCH (13:20)
--- NOTE | 2018-06-10 13:38 | PN ---
Physical Exam: SUBJECTIVE: Patient seen and examined at bedside. Improved alertness vs. initial encounter, still having difficulty verbalizing complaints. Does affirm chest pain. Transitioned from BiPAP to high flow O2. OBJECTIVE: Vital Signs Period Temp Pulse Resp BP Sys/Boyer Pulse Ox Last 24 Hr 98.2 F-100.3 F 62-109 13-28 97-156/56-95 95-100 GENERAL: Awake, alert, unable to assess orientation HEAD: NC/AT EYES: Pinpoint pupils EARS, NOSE, THROAT: Moist mucous membranes. NECK: supple without lymphadenopathy LUNGS: Decreased breath sounds on left, diffuse wheezing/rhonchi HEART: Tachycardic S1S2 nl ABDOMEN: +bs, soft, NT, ND EXTREMITIES: 2+ pulses, warm, well-perfused, non-pitting edema b/l NEUROLOGICAL: Moves 4 extremities spontaneously and complies with commands, motor strength and sensation grossly intact throughout Laboratory Results - last 24 hr 06/09/18 06/09/18 06/09/18 12:08 12:08 14:59 WBC RBC Hgb Hct MCV MCH MCHC RDW Plt Count MPV Absolute Neuts (auto) Neutrophils % Neutrophils % (Manual) 85.6 H Band Neutrophils % 9.3 Lymphocytes % Lymphocytes % (Manual) 2.0 L Monocytes % Monocytes % (Manual) 2 L Eosinophils % Eosinophils % (Manual) 0.0 Basophils % Basophils % (Manual) 0.0 Myelocytes % (Man) 0 Promyelocytes % (Man) 0 Blast Cells % (Manual) 0 Nucleated RBC % Metamyelocytes 0 Hypochromia 0 Platelet Estimate Normal Polychromasia 1+ Poikilocytosis 0 Anisocytosis 3+ Microcytosis 3+ Macrocytosis 0 Stomatocytes 1+ PTT (Actin FS) Anticoagulation Therapy Puncture Site ABG pH ABG pCO2 at Pt Temp ABG pO2 at Pt Temp ABG HCO3 ABG O2 Sat (Measured) ABG O2 Content ABG Base Excess Antonio Test O2 Delivery Device Oxygen Flow Rate Vent Mode Vent Rate Mechanical Rate Pressure Support Vent Sodium 140 Potassium 5.0 Chloride 108 H Carbon Dioxide 25 Anion Gap 8 BUN 31 H Creatinine 2.1 H Creat Clearance w eGFR 29.89 Random Glucose 184 H Lactic Acid 3.6 H* Calcium 9.4 Phosphorus 3.2 Magnesium 2.0 Total Bilirubin 0.6 AST 37 ALT 21 Alkaline Phosphatase 115 Creatine Kinase 266 Creatine Kinase Index 11.8 H* CK-MB (CK-2) 31.4 H Troponin I 5.51 H* B-Natriuretic Peptide 7664.6 H Total Protein 6.4 Albumin 3.2 L Triglycerides Cholesterol Total LDL Cholesterol HDL Cholesterol TSH 06/09/18 06/09/18 06/09/18 14:59 18:21 21:30 WBC RBC Hgb Hct MCV MCH MCHC RDW Plt Count MPV Absolute Neuts (auto) Neutrophils % Neutrophils % (Manual) Band Neutrophils % Lymphocytes % Lymphocytes % (Manual) Monocytes % Monocytes % (Manual) Eosinophils % Eosinophils % (Manual) Basophils % Basophils % (Manual) Myelocytes % (Man) Promyelocytes % (Man) Blast Cells % (Manual) Nucleated RBC % Metamyelocytes Hypochromia Platelet Estimate Polychromasia Poikilocytosis Anisocytosis Microcytosis Macrocytosis Stomatocytes PTT (Actin FS) 68.3 H Anticoagulation Therapy Puncture Site ABG pH ABG pCO2 at Pt Temp ABG pO2 at Pt Temp ABG HCO3 ABG O2 Sat (Measured) ABG O2 Content ABG Base Excess Antonio Test O2 Delivery Device Oxygen Flow Rate Vent Mode Vent Rate Mechanical Rate Pressure Support Vent Sodium Potassium Chloride Carbon Dioxide Anion Gap BUN Creatinine Creat Clearance w eGFR Random Glucose Lactic Acid Calcium Phosphorus 3.1 Magnesium 2.1 Total Bilirubin AST ALT Alkaline Phosphatase Creatine Kinase Creatine Kinase Index CK-MB (CK-2) Troponin I 30.20 H* B-Natriuretic Peptide 25663.7 H Total Protein Albumin Triglycerides Cholesterol Total LDL Cholesterol HDL Cholesterol TSH 1.73 06/10/18 06/10/18 06/10/18 05:30 05:30 05:30 WBC 16.9 H RBC 3.46 L Hgb 11.0 L Hct 34.1 L MCV 98.7 H MCH 31.7 MCHC 32.2 RDW 13.2 Plt Count 259 MPV 9.3 Absolute Neuts (auto) 13.5 H Neutrophils % 79.7 Neutrophils % (Manual) Band Neutrophils % Lymphocytes % 10.9 D Lymphocytes % (Manual) Monocytes % 8.4 Monocytes % (Manual) Eosinophils % 0.7 D Eosinophils % (Manual) Basophils % 0.3 Basophils % (Manual) Myelocytes % (Man) Promyelocytes % (Man) Blast Cells % (Manual) Nucleated RBC % 0 Metamyelocytes Hypochromia Platelet Estimate Polychromasia Poikilocytosis Anisocytosis Microcytosis Macrocytosis Stomatocytes PTT (Actin FS) Anticoagulation Therapy Puncture Site ABG pH ABG pCO2 at Pt Temp ABG pO2 at Pt Temp ABG HCO3 ABG O2 Sat (Measured) ABG O2 Content ABG Base Excess Antonio Test O2 Delivery Device Oxygen Flow Rate Vent Mode Vent Rate Mechanical Rate Pressure Support Vent Sodium 140 Potassium 4.8 Chloride 106 Carbon Dioxide 27 Anion Gap 8 BUN 35 H Creatinine 2.0 H Creat Clearance w eGFR 31.62 Random Glucose 138 H Lactic Acid Calcium 8.5 Phosphorus 3.9 Magnesium 2.1 Total Bilirubin AST ALT Alkaline Phosphatase Creatine Kinase Creatine Kinase Index CK-MB (CK-2) Troponin I 22.90 H* Cancelled B-Natriuretic Peptide Total Protein Albumin Triglycerides 97 Cholesterol 136 Total LDL Cholesterol 73 HDL Cholesterol 53 TSH 06/10/18 06:10 WBC RBC Hgb Hct MCV MCH MCHC RDW Plt Count MPV Absolute Neuts (auto) Neutrophils % Neutrophils % (Manual) Band Neutrophils % Lymphocytes % Lymphocytes % (Manual) Monocytes % Monocytes % (Manual) Eosinophils % Eosinophils % (Manual) Basophils % Basophils % (Manual) Myelocytes % (Man) Promyelocytes % (Man) Blast Cells % (Manual) Nucleated RBC % Metamyelocytes Hypochromia Platelet Estimate Polychromasia Poikilocytosis Anisocytosis Microcytosis Macrocytosis Stomatocytes PTT (Actin FS) Anticoagulation Therapy No Result Required. Puncture Site Right radial ABG pH 7.43 ABG pCO2 at Pt Temp 36.4 ABG pO2 at Pt Temp 107.0 H D ABG HCO3 23.8 ABG O2 Sat (Measured) 98.2 ABG O2 Content 14.4 L ABG Base Excess 0.3 Antonio Test Positive O2 Delivery Device No Result Required. Oxygen Flow Rate 60 Vent Mode No Result Required. Vent Rate 14 Mechanical Rate No Result Required. Pressure Support Vent No Result Required. Sodium Potassium Chloride Carbon Dioxide Anion Gap BUN Creatinine Creat Clearance w eGFR Random Glucose Lactic Acid Calcium Phosphorus Magnesium Total Bilirubin AST ALT Alkaline Phosphatase Creatine Kinase Creatine Kinase Index CK-MB (CK-2) Troponin I B-Natriuretic Peptide Total Protein Albumin Triglycerides Cholesterol Total LDL Cholesterol HDL Cholesterol TSH Active Medications Generic Name Dose Route Start Last Admin Trade Name Freq PRN Reason Stop Dose Admin Albuterol Sulfate 1 amp 06/09/18 13:19 Ventolin 0.083% Nebulizer Soln - NEB Q4H PRN SHORT OF BREATH/WHEEZING Albuterol/Ipratropium 1 amp 06/09/18 16:00 06/10/18 11:38 Duoneb - NEB 1 amp RQID FLAVIO Administration Aspirin 300 mg 06/10/18 10:00 06/10/18 09:37 Asa - RC 300 mg DAILY FLAVIO Administration Atorvastatin Calcium 10 mg 06/09/18 22:00 06/09/18 23:08 Lipitor - PO 10 mg HS FLAVIO Administration Chlorhexidine Gluconate 1 applic 06/09/18 22:00 06/09/18 23:11 Hibiclens For Decolonization - TP 1 applic HS FLAVIO Administration Cholecalciferol 1,000 unit 06/10/18 10:00 06/10/18 09:37 Vitamin D3 - PO 1,000 unit DAILY FLAVIO Administration Heparin Sodium (Porcine) 1,000 unit 06/09/18 14:18 Heparin - IVPUSH PRN PRN Heparin Heparin Sodium (Porcine) 5,000 unit 06/09/18 14:18 Heparin - IVPUSH PRN PRN Heparin Heparin Sodium (Porcine) 25, 500 mls @ 20 mls/hr 06/09/18 14:30 06/09/18 15: 45 000 unit/ Sodium Chloride IV 1,000 unit/hr TITR FLAVIO 20 mls/hr Administration Protocol 1,000 UNIT/HR Lactated Ringer's 1,000 ml in 1,000 mls @ 75 mls/hr 06/09/18 15:00 06/09/18 15:45 Lactated Ringers Solution IV 75 mls/hr ASDIR FLAVIO Administration Azithromycin 500 mg in 250 mls @ 250 mls/hr 06/10/18 10:00 06/10/18 09:36 Zithromax 500mg Ivpb (Pre-Docked) IVPB 250 mls/hr DAILY FLAVIO Administration Ceftriaxone Sodium 1 gm/ 50 mls @ 100 mls/hr 06/10/18 10:00 06/10/18 09:37 Dextrose IVPB 100 mls/hr DAILY FLAVIO Administration Protocol Mupirocin 1 applic 06/09/18 22:00 06/10/18 09:37 Bactroban Ointment (For Decolonization) - NS 06/14/18 21:59 1 applic BID FLAVIO Administration ASSESSMENT/PLAN: 88 y/o M w/ PMHx dementia, legal blindness, HTN, unknown cardiac Hx (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 CXR shows LLL consolidation. #Pulmonary -acute hypoxic respiratory failure 2/2 PNA -ABG this AM improved -transitioned to high flow 02 50% maintaining saturation -Duonebs standing/albuterol PRN -BCx, Sputum Cx, urine antigens pending -repeat ABG in AM #ID -severe sepsis: initially T 102, HR 122, RR 26, stable BP, WBC 22.2, lactate 6.4 -LLL consolidation on CXR -ID consulted (Dr. Nelson following) -cont empiric azithromycin/ceftriaxone, f/u cultures -LR 50 #cardiac -troponin 5.51 -->30.2-->22.9 -initial EKG w/ ST depressions in I and AVL suggesting acute ischemia -serial EKGs benign -full dose ASA given in ED -off BiPAP, loading dose Plavix 600 today, daily Plavix 75 tomorrow, ASA 81 -heparin gtt x 72 hours total (started yesterday 2:30pm) -cardiology on board -echo: moderate to severely reduced LV function, moderate MV thickening, moderate MR, moderate TR, E/A reversal c/w poor LV compliance [place] [id number], suggests right heart strain -I&O #renal -JOSE: Cr 2.1-->2.0 (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 EDITOR 1.3 in 2016) -U Cr, U lytes pending -avoid nephrotoxic agents -LR 50 #GI -LFTs wnl #FEN -LR @ 50 -monitor BMP -dietary recs pending S/S eval #PPx -DVT: heparin gtt -GI: not indicated at this time #Dispo -ICU Visit type - Emergency Visit Emergency Visit: No - New Patient This patient is new to me today: No - Critical Care Critical Care patient: Yes Total Critical Care Time (in minutes): 40 Critical Care Statement: The care of this patient involved high complexity decision making to prevent further life threatening deterioration of the patient 's condition and/or to evaluate & treat vital organ system(s) failure or risk of failure.
--- NOTE | 2018-06-10 14:53 | CONSULT ---
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 CXR shows LLL consolidation. Per ID: Hypoxemic resp failure LLL pneumonia likely community acquired v. atypical pneumonia Sepsis secondary to pneumonia Lactic acidosis NSTEMI Azotemia OBS Pt NPO. Per nursing-on bipap with 60 percent fio2 o2 sats 99 on bipap short trial of nasal o2 and pt c/o shortness of breath bipap reapplied. Now on Hi-flow, o2 low 90's, tachypneic, effortful abdominal breathing. History Source: Family Member Limitations to Obtaining History: Clinical Condition, Dementia - Past Medical History [employer]: Yes: Dementia Cardiovascular: Yes: Hyperlipdemia - Past Surgical History Past Surgical History: Yes: Prostatectomy - Smoking History Smoking history: Never smoked - Alcohol/Substance Use Hx Alcohol Use: No History of Substance Use: reports: None - Social History ADL: Family Assistance History of Recent Travel: No History - Admission Reason For Visit: PNA ON BIPAP - General Mental Status: Awake and Alert, Able to Follow Commands, Forgetful, Vague, Confused, Flat Affect Attention: Distractible Ability to Follow Directions: Fair - Hearing Hearing: Impaired Hearing Aide: No With Patient: No Speech Evaluation - Communication Primary Language: FRENCH Communication: Yes: Simple Responses - Speech Production Able to Make Needs Known: Yes: Mildly Impaired Intelligibility: Yes: Mildly Impaired - Speech Characteristics Voice Loudness: Normal Voice Pitch: Yes: Mildly High, Pitch Breaks Voice Phonatory-based Quality: Yes: Strident Speech Clarity: < 75% - Swallow Evaluation/Bedside Assessment Current Nutritional Intake: NPO Oral Secretions: Yes: WFL Dentition: Yes: Edentulous Facial Symmetry at Rest: Symmetrical Facial Symmetry on Retraction: Symmetrical Facial Movement: Controlled Against Resistance Opening: Weak Against Resistance Closing: Weak Pucker Lips: Weak Smile: Weak Lingual Movement: Symmetric Lingual Speed of Movement: Normal Lingual Movement Strgth Against Opposition: Reduced Velopharyngeal Movement: Reduced Elevation (suspected with impaired nasality.) Laryngeal Movement: Able to Palpate, Labored,delay initiation Labial Seal: WFL Oral Prep Time: WFL A-P Transit: WFL Pocketing: None Timing of Swallow: Delayed Coughing/Throat Clear: No Change in Voice: No Recommendations - Speech Evaluation, Impression/Plan Impression: Confused. Tachypneic on Hi Yrn, adversely affecting swallowing function and increasing aspiration risk.Delayed swallow onset. fair laryngeal rate and excursion. - Dysphagia Impressions/Plan Swallowing Skills: Impaired Dysphagia Impressions: Mild Impairment *Silent aspiration: cannot be R/O at bedside Recommendations: Other (Feed only if neccessary until RR improves.Breathing and swallowing are reciprocal functions; brief cessation of breathing needed for deglution) - Recommendations Diet Consistency: Dysphagia Pureed Medication Administration: Crushed with applesauce Liquids: Am[place] Thick (on tsp) Supplement: Magic Cup, Ensure Pudding
--- NOTE | 2018-06-10 15:24 | PN ---
Teaching Attending Note Name of Resident: Jareth Kauffman ATTENDING PHYSICIAN STATEMENT I saw and evaluated the patient. I reviewed the resident's note and discussed the case with the resident. I agree with the resident's findings and plan as documented. SUBJECTIVE: Patient seen and examined in the ICU. Tachypneic on NIPPV and unable to take Plavix. Awake and able to communicate. Reports some left sided and mid-epigastric discomfort. OBJECTIVE: Intake & Output 06/07/18 06/08/18 06/09/18 06/10/18 23:59 23:59 23:59 23:59 Intake Total 400 1112 Balance 400 1112 Weight 212 lb 11.937 oz 212 lb 11.937 oz Last Vital Signs Temp Pulse Resp BP Pulse Ox 97.8 F 105 H 18 138/99 95 06/10/18 14:00 06/10/18 14:00 06/10/18 14:00 06/10/18 14:00 06/10/18 10:58 Active Medications Albuterol Sulfate (Ventolin 0.083% Nebulizer Soln -) 1 amp NEB Q4H PRN PRN Reason: SHORT OF BREATH/WHEEZING Albuterol/Ipratropium (Duoneb -) 1 amp NEB RQID [facility] Last Admin: 06/10/18 11:38 Dose: 1 amp Aspirin (Ecotrin -) 81 mg PO DAILY [facility] Atorvastatin Calcium (Lipitor -) 10 mg PO HS [facility] Last Admin: 06/09/18 23:08 Dose: 10 mg Chlorhexidine Gluconate (Hibiclens For Decolonization -) 1 applic TP HS [facility] Last Admin: 06/09/18 23:11 Dose: 1 applic Cholecalciferol (Vitamin D3 -) 1,000 unit PO DAILY [facility] Last Admin: 06/10/18 09:37 Dose: 1,000 unit Clopidogrel Bisulfate (Plavix -) 75 mg PO DAILY [facility] Heparin Sodium (Porcine) (Heparin -) 1,000 unit IVPUSH PRN PRN PRN Reason: Heparin Heparin Sodium (Porcine) (Heparin -) 5,000 unit IVPUSH PRN PRN PRN Reason: Heparin Heparin Sodium (Porcine) 25, (000 unit/ Sodium Chloride) 500 mls @ 20 mls/hr IV TITR [facility]; Protocol Last Admin: 06/09/18 15:45 Dose: 1,000 unit/hr, 20 mls/hr Azithromycin (Zithromax 500mg Ivpb (Pre-Docked)) 500 mg in 250 mls @ 250 mls/ hr IVPB DAILY [facility] Last Admin: 06/10/18 09:36 Dose: 250 mls/hr Ceftriaxone Sodium 1 gm/ (Dextrose) 50 mls @ 100 mls/hr IVPB DAILY [facility]; Protocol Last Admin: 06/10/18 09:37 Dose: 100 mls/hr Lactated Ringer's (Lactated Ringers Solution) 1,000 ml in 1,000 mls @ 50 mls/ hr IV ASDIR [facility] Last Admin: 06/10/18 14:03 Dose: 50 mls/hr Mupirocin (Bactroban Ointment (For Decolonization) -) 1 applic NS BID [facility] Stop: 06/14/18 21:59 Last Admin: 06/10/18 09:37 Dose: 1 applic Gen: Awake and interactive, mildly tachypneic on NIPPV Heart: tachycardic, regular Lung: scattered rhonchi Abd: soft, nontender Ext: no edema Laboratory Results - last 24 hr 06/09/18 06/09/18 06/09/18 14:59 14:59 18:21 WBC RBC Hgb Hct MCV MCH MCHC RDW Plt Count MPV Absolute Neuts (auto) Neutrophils % Lymphocytes % Monocytes % Eosinophils % Basophils % Nucleated RBC % PTT (Actin FS) Anticoagulation Therapy Puncture Site ABG pH ABG pCO2 at Pt Temp ABG pO2 at Pt Temp ABG HCO3 ABG O2 Sat (Measured) ABG O2 Content ABG Base Excess Antonio Test O2 Delivery Device Oxygen Flow Rate Vent Mode Vent Rate Mechanical Rate Pressure Support Vent Sodium Potassium Chloride Carbon Dioxide Anion Gap BUN Creatinine Creat Clearance w eGFR Random Glucose Lactic Acid 3.6 H* Calcium Phosphorus 3.1 Magnesium 2.1 Troponin I 30.20 H* B-Natriuretic Peptide 28814.7 H Triglycerides Cholesterol Total LDL Cholesterol HDL Cholesterol TSH 1.73 06/09/18 06/10/18 06/10/18 21:30 05:30 05:30 WBC 16.9 H RBC 3.46 L Hgb 11.0 L Hct 34.1 L MCV 98.7 H MCH 31.7 MCHC 32.2 RDW 13.2 Plt Count 259 MPV 9.3 Absolute Neuts (auto) 13.5 H Neutrophils % 79.7 Lymphocytes % 10.9 D Monocytes % 8.4 Eosinophils % 0.7 D Basophils % 0.3 Nucleated RBC % 0 PTT (Actin FS) 68.3 H Anticoagulation Therapy Puncture Site ABG pH ABG pCO2 at Pt Temp ABG pO2 at Pt Temp ABG HCO3 ABG O2 Sat (Measured) ABG O2 Content ABG Base Excess Antonio Test O2 Delivery Device Oxygen Flow Rate Vent Mode Vent Rate Mechanical Rate Pressure Support Vent Sodium 140 Potassium 4.8 Chloride 106 Carbon Dioxide 27 Anion Gap 8 BUN 35 H Creatinine 2.0 H Creat Clearance w eGFR 31.62 Random Glucose 138 H Lactic Acid Calcium 8.5 Phosphorus 3.9 Magnesium 2.1 Troponin I 22.90 H* B-Natriuretic Peptide Triglycerides 97 Cholesterol 136 Total LDL Cholesterol 73 HDL Cholesterol 53 TSH 06/10/18 06/10/18 05:30 06:10 WBC RBC Hgb Hct MCV MCH MCHC RDW Plt Count MPV Absolute Neuts (auto) Neutrophils % Lymphocytes % Monocytes % Eosinophils % Basophils % Nucleated RBC % PTT (Actin FS) Anticoagulation Therapy No Result Required. Puncture Site Right radial ABG pH 7.43 ABG pCO2 at Pt Temp 36.4 ABG pO2 at Pt Temp 107.0 H D ABG HCO3 23.8 ABG O2 Sat (Measured) 98.2 ABG O2 Content 14.4 L ABG Base Excess 0.3 Antonio Test Positive O2 Delivery Device No Result Required. Oxygen Flow Rate 60 Vent Mode No Result Required. Vent Rate 14 Mechanical Rate No Result Required. Pressure Support Vent No Result Required. Sodium Potassium Chloride Carbon Dioxide Anion Gap BUN Creatinine Creat Clearance w eGFR Random Glucose Lactic Acid Calcium Phosphorus Magnesium Troponin I Cancelled B-Natriuretic Peptide Triglycerides Cholesterol Total LDL Cholesterol HDL Cholesterol TSH ASSESSMENT AND PLAN: Acute Hypoxic Respiratory Failure Pneumonia R/O Sepsis: Low clinical suspicion Lactic Acidosis Acute Kidney Injury +Troponins Acute NSTEMI Dementia - Daily Medrol - Trial of HFOT - IV ABX - Follow up cultures - Monitor urine output, creatinine - trend lactate - trend cardiac enzymes - ECHO - beta carole, ASA, statin - AC - Cardiology evaluation - O2 to keep Spo2 >90% - Aspiration precautions - DVT prophylaxis - ICU monitoring for tenuous status Dr Babcock Critical care time spent in reviewing chart, evaluating patient and formulating plan 35 min
[2018-06-10] MEDS: methylPREDNISolone NA SUCC 40 MG/1 ML VIAL IVPUSH SCH (16:13)
[2018-06-10] MEDS ORDERED: METOPROLOL TARTRATE 5 MG/5 ML VIAL IVPUSH ONE (17:41)
[2018-06-10] MEDS: HEPARIN - 25,000 UNIT in SODIUM CHLORIDE 495 ML IV SCH (18:14)
[2018-06-10] MEDS ORDERED: ACETAMINOPHEN 1000 MG/100 ML VIAL (NON FORMULARY) IVPB ONE (19:05)
[2018-06-10] MEDS: ATORVASTATIN CA 10 MG TABLET (FP) PO SCH (21:38)
[2018-06-10] MEDS: CHLORHEXIDINE GLUCONATE 4% CLEANSER FOR DECOLONIZATION TP SCH (21:38)
[2018-06-11 06:28] LABS: BASO % 0.1 % (0-2.0); HEMATOCRIT 35.5 % (35.4-49); HEMOGLOBIN 11.3 GM/dL (11.7-16.9); LYMPH % 7.4 % (8-40); MCH 31.5 pg (25.7-33.7); MCHC 31.7 g/dl (32.0-35.9); MEAN CELL VOLUME 99.3 fl (80-96); MEAN PLT VOLUME 9.3 fl (7.5-11.1); MONO % 4.5 % (3.8-10.2); PLATELET COUNT 252 K/MM3 (134-434); RBC 3.58 M/mm3 (4.00-5.60); RDW 13.1 % (11.9-15.9); WHITE BLOOD COUNT 14.2 K/mm3 (4.0-10.0)
[2018-06-11 07:17] LABS: ANION GAP 8 MMOL/L (8-16); BLOOD UREA NITROGEN 44 mg/dL (7-18); CHLORIDE 108 mmol/L (98-107); CO2 26 mmol/L (21-32); CREATININE 1.9 mg/dL (0.55-1.3); GLUCOSE,RANDOM 142 mg/dL (74-106); MAGNESIUM 2.3 mg/dL (1.8-2.4); PHOSPHOROUS 5.4 mg/dL (2.5-4.9); POTASSIUM 5.2 mmol/L (3.5-5.1); SODIUM 143 mmol/L (136-145)
[2018-06-11] MEDS: ALBUTEROL SO4 2.5/IPRATROPIUM 0.5 INH SOL 3 ML VIAL.NEB. NEB SCH ×4 (08:25→21:00)
[2018-06-11] MEDS ORDERED: FUROSEMIDE 40 MG/4 ML INJECTABLE VIAL IVPUSH ONE (09:01)
[2018-06-11] MEDS ORDERED: MORPHINE SULFATE 2 MG/ML VIAL IVPUSH ONE ×3 (09:02→18:00)
--- NOTE | 2018-06-11 09:40 | EKG ---
Test Reason : Blood Pressure : / mmHG Vent. Rate : 103 BPM Atrial Rate : 103 BPM P-R Int : 178 ms QRS Dur : 078 ms QT Int : 350 ms P-R-T Axes : 045 020 042 degrees QTc Int : 458 ms SINUS TACHYCARDIA LOW VOLTAGE QRS NON NONSPECIFIC ST ABNORMALITY Confirmed by NESTOR WASSERMAN MD ([id number]) on 06/11/2018 9:39:48 AM Referred By: DEBORAH SINGH Confirmed By:NESTOR WASSERMAN MD
[2018-06-11] MEDS ORDERED: PT OWN MED DRAWER 7, Y5N ONE (09:41)
[2018-06-11] MEDS ORDERED: cefTRIAXone SODIUM 1 GM VIAL ONE (09:42)
[2018-06-11] MEDS ORDERED: DEXTROSE 5%-WATER - 50 ML IVPB ONE (09:42)
[2018-06-11] MEDS: methylPREDNISolone NA SUCC 40 MG/1 ML VIAL IVPUSH SCH (10:04)
[2018-06-11] MEDS: CEFTRIAXONE 1 GM in DEXTROSE 5%-WATER - 50 ML IVPB SCH (10:06)
[2018-06-11] MEDS: ASPIRIN COATED 81 MG TABLET.EC PO SCH (10:07)
[2018-06-11] MEDS: MUPIROCIN 2% TOPICAL OINTMENT FOR DECOLONIZATION NS SCH ×2 (10:07→21:44)
[2018-06-11] MEDS: CHOLECALCIFEROL (VITAMIN D3) 1,000 UNIT TABLET (FP) PO SCH (10:07)
[2018-06-11] MEDS: CLOPIDOGREL BISULFATE 75 MG TABLET (FP) PO SCH (10:07)
[2018-06-11] MEDS: AZITHROMYCIN IVPB 500 MG/250 ML BAG IVPB SCH (10:08)
--- NOTE | 2018-06-11 10:59 | PN ---
Progress Note, Physician Chief Complaint: Mr Millard is without complaint. He denies cp, sob, n/v. - Current Medication List Current Medications: Active Medications Albuterol Sulfate (Ventolin 0.083% Nebulizer Soln -) 1 amp NEB Q4H PRN PRN Reason: SHORT OF BREATH/WHEEZING Last Admin: 06/11/18 00:34 Dose: 1 amp Albuterol/Ipratropium (Duoneb -) 1 amp NEB RQID [facility] Last Admin: 06/11/18 08:25 Dose: 1 amp Aspirin (Ecotrin -) 81 mg PO DAILY [facility] Last Admin: 06/11/18 10:07 Dose: 81 mg Atorvastatin Calcium (Lipitor -) 10 mg PO HS [facility] Last Admin: 06/10/18 21:38 Dose: 10 mg Chlorhexidine Gluconate (Hibiclens For Decolonization -) 1 applic TP HS [facility] Last Admin: 06/10/18 21:38 Dose: 1 applic Cholecalciferol (Vitamin D3 -) 1,000 unit PO DAILY [facility] Last Admin: 06/11/18 10:07 Dose: 1,000 unit Clopidogrel Bisulfate (Plavix -) 75 mg PO DAILY [facility] Last Admin: 06/11/18 10:07 Dose: 75 mg Heparin Sodium (Porcine) (Heparin -) 1,000 unit IVPUSH PRN PRN PRN Reason: Heparin Heparin Sodium (Porcine) (Heparin -) 5,000 unit IVPUSH PRN PRN PRN Reason: Heparin Heparin Sodium (Porcine) 25, (000 unit/ Sodium Chloride) 500 mls @ 20 mls/hr IV TITR [facility]; Protocol Last Titration: 06/11/18 09:33 Dose: 1,000 unit/hr, 20 mls/hr Azithromycin (Zithromax 500mg Ivpb (Pre-Docked)) 500 mg in 250 mls @ 250 mls/ hr IVPB DAILY [facility] Last Admin: 06/11/18 10:08 Dose: 250 mls/hr Ceftriaxone Sodium 1 gm/ (Dextrose) 50 mls @ 100 mls/hr IVPB DAILY [facility]; Protocol Last Admin: 06/11/18 10:06 Dose: 100 mls/hr Methylprednisolone Sodium Succinate (Solu-Medrol -) 40 mg IVPUSH DAILY [facility] Stop: 06/14/18 10:01 Last Admin: 06/11/18 10:04 Dose: 40 mg Mupirocin (Bactroban Ointment (For Decolonization) -) 1 applic NS BID [facility] Stop: 06/14/18 21:59 Last Admin: 06/11/18 10:07 Dose: 1 applic - Objective Vital Signs: Vital Signs Temperature 36.3 C L 06/11/18 10:00 Pulse Rate 106 H 06/11/18 10:00 Respiratory Rate 24 H 06/11/18 10:00 Blood Pressure 135/94 06/11/18 10:00 O2 Sat by Pulse Oximetry (%) 96 06/11/18 10:38 Constitutional: Yes: Well Nourished, No Distress, Calm Cardiovascular: Yes: Tachycardia. No: Pulse Irregular, Gallop, Murmur, Rub Respiratory: Yes: Regular, CTA Bilaterally, Other (talks through exam). No: Rales, Rhonchi, Wheezes Gastrointestinal: Yes: Normal Bowel Sounds, Soft. No: Distention, Tenderness Extremities: Yes: WNL Edema: No Labs: CBC, BMP 06/11/18 05:30 06/11/18 05:30 INR, PTT INR 1.08 (0.83-1.09) 06/09/18 11:05 Problem List - Problems (1) Septic shock Code(s): A41.9 - SEPSIS, UNSPECIFIED ORGANISM; R65.21 - SEVERE SEPSIS WITH SEPTIC SHOCK (2) Pneumonia Code(s): J18.9 - PNEUMONIA, UNSPECIFIED ORGANISM Qualifiers: Pneumonia type: due to unspecified organism Laterality: left Lung location: lower lobe of lung Qualified Code(s): J18.1 - Lobar pneumonia, unspecified organism (3) Acute myocardial infarction Code(s): I21.9 - ACUTE MYOCARDIAL INFARCTION, UNSPECIFIED Qualifiers: Myocardial infarction type: unspecified Involved coronary artery: unspecified coronary artery Qualified Code(s): I21.9 - Acute myocardial infarction, unspecified (4) JOSE (acute kidney injury) Code(s): N17.9 - ACUTE KIDNEY FAILURE, UNSPECIFIED (5) Acute respiratory failure with hypoxia Code(s): J96.01 - ACUTE RESPIRATORY FAILURE WITH HYPOXIA (6) Acute metabolic encephalopathy Code(s): G93.41 - METABOLIC ENCEPHALOPATHY (7) Dementia Code(s): F03.90 - UNSPECIFIED DEMENTIA WITHOUT BEHAVIORAL DISTURBANCE Assessment/Plan (1) Septic shock Assessment/Plan: -continues to improve -case d/w ID and pulmonary -continue antibiotics Code(s): A41.9 - SEPSIS, UNSPECIFIED ORGANISM; R65.21 - SEVERE SEPSIS WITH SEPTIC SHOCK (2) Pneumonia Assessment/Plan: -continue rocephin and zithromax -continue steroids -patient much improved today Code(s): J18.9 - PNEUMONIA, UNSPECIFIED ORGANISM Qualifiers: Pneumonia type: due to unspecified organism Laterality: left Lung location: lower lobe of lung Qualified Code(s): J18.1 - Lobar pneumonia, unspecified organism (3) Acute myocardial infarction Assessment/Plan: -case d/w Dr Aguilera -troponins trending down -continue heparin gtt Code(s): I21.9 - ACUTE MYOCARDIAL INFARCTION, UNSPECIFIED Qualifiers: Myocardial infarction type: unspecified Involved coronary artery: unspecified coronary artery Qualified Code(s): I21.9 - Acute myocardial infarction, unspecified (4) JOSE (acute kidney injury) Assessment/Plan: -minimal improvement -monitor Code(s): N17.9 - ACUTE KIDNEY FAILURE, UNSPECIFIED (5) Acute respiratory failure with hypoxia Assessment/Plan: -on high flow oxygen -titration per pulmonary Code(s): J96.01 - ACUTE RESPIRATORY FAILURE WITH HYPOXIA (6) Acute metabolic encephalopathy Assessment/Plan: -much improved today, suspect at baseline Code(s): G93.41 - METABOLIC ENCEPHALOPATHY (7) Dementia Assessment/Plan: -monitor Code(s): F03.90 - UNSPECIFIED DEMENTIA WITHOUT BEHAVIORAL DISTURBANCE 31 minutes spent in critical care of this patient
--- NOTE | 2018-06-11 11:04 | PN ---
Progress Note, MATERIAL COMBINER - Note Progress Note: Looking better. Less tachypneic than yesterday. Selected Entries 06/10/18 06/10/18 06/10/18 10:05 14:00 18:30 Temperature 98.2 F 97.8 F 99.5 F 06/11/18 10:00 Temperature 97.4 F L Laboratory Tests 06/10/18 06/11/18 05:30 05:30 WBC 16.9 H 14.2 H - Recommendations Diet Consistency: Dysphagia Pureed Medication Administration: Crushed with applesauce Liquids: [place] Thick (on tsp) Supplement: Magic Cup, Ensure Pudding Monitor tolerance. Do not feed if lethargic or tachypneic.
--- NOTE | 2018-06-11 11:21 | PN ---
Progress Note, Physician History of Present Illness: Awake, alert Confused No complaints Breathing non-labored on high flow O2 Temps down afebrile WBC improved CXR increased markings L lung field - Current Medication List Current Medications: Active Medications Albuterol Sulfate (Ventolin 0.083% Nebulizer Soln -) 1 amp NEB Q4H PRN PRN Reason: SHORT OF BREATH/WHEEZING Last Admin: 06/11/18 00:34 Dose: 1 amp Albuterol/Ipratropium (Duoneb -) 1 amp NEB RQID [facility] Last Admin: 06/11/18 08:25 Dose: 1 amp Aspirin (Ecotrin -) 81 mg PO DAILY [facility] Last Admin: 06/11/18 10:07 Dose: 81 mg Atorvastatin Calcium (Lipitor -) 10 mg PO HS [facility] Last Admin: 06/10/18 21:38 Dose: 10 mg Chlorhexidine Gluconate (Hibiclens For Decolonization -) 1 applic TP HS [facility] Last Admin: 06/10/18 21:38 Dose: 1 applic Cholecalciferol (Vitamin D3 -) 1,000 unit PO DAILY [facility] Last Admin: 06/11/18 10:07 Dose: 1,000 unit Clopidogrel Bisulfate (Plavix -) 75 mg PO DAILY [facility] Last Admin: 06/11/18 10:07 Dose: 75 mg Heparin Sodium (Porcine) (Heparin -) 1,000 unit IVPUSH PRN PRN PRN Reason: Heparin Heparin Sodium (Porcine) (Heparin -) 5,000 unit IVPUSH PRN PRN PRN Reason: Heparin Heparin Sodium (Porcine) 25, (000 unit/ Sodium Chloride) 500 mls @ 20 mls/hr IV TITR [facility]; Protocol Last Titration: 06/11/18 09:33 Dose: 1,000 unit/hr, 20 mls/hr Azithromycin (Zithromax 500mg Ivpb (Pre-Docked)) 500 mg in 250 mls @ 250 mls/ hr IVPB DAILY [facility] Last Admin: 06/11/18 10:08 Dose: 250 mls/hr Ceftriaxone Sodium 1 gm/ (Dextrose) 50 mls @ 100 mls/hr IVPB DAILY [facility]; Protocol Last Admin: 06/11/18 10:06 Dose: 100 mls/hr Methylprednisolone Sodium Succinate (Solu-Medrol -) 40 mg IVPUSH DAILY [facility] Stop: 06/14/18 10:01 Last Admin: 10/12/18 10:04 Dose: 40 mg Mupirocin (Bactroban Ointment (For Decolonization) -) 1 applic NS BID [facility] Stop: 06/14/18 21:59 Last Admin: 06/11/18 10:07 Dose: 1 applic - Objective Vital Signs: Vital Signs Temperature 97.4 F L 06/11/18 10:00 Pulse Rate 106 H 06/11/18 10:00 Respiratory Rate 24 H 06/11/18 10:00 Blood Pressure 135/94 06/11/18 10:00 O2 Sat by Pulse Oximetry (%) 96 06/11/18 10:38 Constitutional: Yes: No Distress Eyes: Yes: Conjunctiva Clear Cardiovascular: Yes: Regular Rate and Rhythm, Tachycardia Respiratory: Yes: Diminished Gastrointestinal: Yes: Normal Bowel Sounds, Soft. No: Tenderness Edema: Yes Labs: CBC, BMP 06/11/18 05:30 06/11/18 05:30 INR, PTT INR 1.08 (0.83-1.09) 06/09/18 11:05 Assessment/Plan Hypoxemic resp failure LLL pneumonia Sepsis lactic acidosis NSTEMI Azotemia OBS Await c/s Continue zithromax/ ceftriaxone
--- NOTE | 2018-06-11 11:47 | PN ---
Physical Exam: SUBJECTIVE: Patient seen and examined at bedside. Alert and conversational in setting of baseline dementia. Complains of chest pain and diffuse body pain. OBJECTIVE: Vital Signs Period Temp Pulse Resp BP Sys/Boyer Pulse Ox Last 24 Hr 97.4 F-99.5 F 90-118 12-26 122-143/76-99 96-99 GENERAL: Awake, alert, oriented only to name and forgetful, verbally fluent (at baseline per son) HEAD: NC/AT EYES: PERRLA, EOMI EARS, NOSE, THROAT: Moist mucous membranes. NECK: supple without lymphadenopathy LUNGS: Decreased breath sounds on left, diffuse crackles increased vs yesterday HEART: Tachycardic S1S2 nl, chest pain not reproducible ABDOMEN: +bs, soft, NT, ND EXTREMITIES: 2+ pulses, warm, well-perfused, non-pitting edema b/l NEUROLOGICAL: Moves 4 extremities spontaneously and complies with commands, motor strength and sensation grossly intact throughout Laboratory Results - last 24 hr 06/10/18 06/11/18 06/11/18 15:45 05:30 05:30 WBC RBC Hgb Hct MCV MCH MCHC RDW Plt Count MPV Absolute Neuts (auto) Neutrophils % Lymphocytes % Monocytes % Eosinophils % Basophils % Nucleated RBC % PTT (Actin FS) 66.8 H 73.3 H Sodium 143 Potassium 5.2 H Chloride 108 H Carbon Dioxide 26 Anion Gap 8 BUN 44 H Creatinine 1.9 H Creat Clearance w eGFR 33.54 Random Glucose 142 H Calcium 9.0 Phosphorus 5.4 H Magnesium 2.3 Troponin I 10.30 H* 06/11/18 06/11/18 05:30 05:30 WBC 14.2 H RBC 3.58 L Hgb 11.3 L Hct 35.5 MCV 99.3 H MCH 31.5 MCHC 31.7 L RDW 13.1 Plt Count 252 MPV 9.3 Absolute Neuts (auto) 12.5 H Neutrophils % 88.0 H Lymphocytes % 7.4 L D Monocytes % 4.5 Eosinophils % 0.0 D Basophils % 0.1 Nucleated RBC % 0 PTT (Actin FS) Sodium Potassium Chloride Carbon Dioxide Anion Gap BUN Creatinine Creat Clearance w eGFR Random Glucose Calcium Phosphorus Magnesium Troponin I Cancelled Active Medications Generic Name Dose Route Start Last Admin Trade Name Freq PRN Reason Stop Dose Admin Albuterol Sulfate 1 amp 06/09/18 13:19 10/12/18 00:34 Ventolin 0.083% Nebulizer Soln - NEB 1 amp Q4H PRN Administration SHORT OF BREATH/WHEEZING Albuterol/Ipratropium 1 amp 06/09/18 16:00 06/11/18 08:25 Duoneb - NEB 1 amp RQID [facility] Administration Aspirin 81 mg 06/11/18 10:00 06/11/18 10:07 Ecotrin - PO 81 mg DAILY [facility] Administration Atorvastatin Calcium 10 mg 06/09/18 22:00 06/10/18 21:38 Lipitor - PO 10 mg HS [facility] Administration Chlorhexidine Gluconate 1 applic 06/09/18 22:00 06/10/18 21:38 Hibiclens For Decolonization - TP 1 applic HS [facility] Administration Cholecalciferol 1,000 unit 06/10/18 10:00 06/11/18 10:07 Vitamin D3 - PO 1,000 unit DAILY [facility] Administration Clopidogrel Bisulfate 75 mg 06/11/18 10:00 06/11/18 10:07 Plavix - PO 75 mg DAILY [facility] Administration Heparin Sodium (Porcine) 1,000 unit 06/09/18 14:18 Heparin - IVPUSH PRN PRN Heparin Heparin Sodium (Porcine) 5,000 unit 06/09/18 14:18 Heparin - IVPUSH PRN PRN Heparin Heparin Sodium (Porcine) 25, 500 mls @ 20 mls/hr 06/09/18 14:30 06/11/18 09: 33 000 unit/ Sodium Chloride IV 1,000 unit/hr TITR [facility] 20 mls/hr Titration Protocol 1,000 UNIT/HR Azithromycin 500 mg in 250 mls @ 250 mls/hr 06/10/18 10:00 06/11/18 10:08 Zithromax 500mg Ivpb (Pre-Docked) IVPB 250 mls/hr DAILY [facility] Administration Ceftriaxone Sodium 1 gm/ 50 mls @ 100 mls/hr 06/10/18 10:00 06/11/18 10:06 Dextrose IVPB 100 mls/hr DAILY [facility] Administration Protocol Methylprednisolone Sodium Succinate 40 mg 06/10/18 15:30 06/11/18 10:04 Solu-Medrol - IVPUSH 06/14/18 10:01 40 mg DAILY [facility] Administration Mupirocin 1 applic 06/09/18 22:00 06/11/18 10:07 Bactroban Ointment (For Decolonization) - NS 06/14/18 21:59 1 applic BID [facility] Administration ASSESSMENT/PLAN: 88 y/o M w/ PMHx dementia, legal blindness, HTN, unknown cardiac Hx (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 CXR shows LLL consolidation. #Pulmonary -acute hypoxic respiratory failure 2/2 PNA -maintaining -Duonebs standing/albuterol PRN -BCx, Sputum Cx, urine antigens pending -repeat ABG in AM -CXR showing new pulmonary congestion, likely overloaded, fluids held #ID -severe sepsis: initially T 102, HR 122, RR 26, stable BP, WBC 22.2, lactate 6.4 -LLL consolidation on CXR -ID consulted (Dr. Omar olivier) -cont empiric azithromycin/ceftriaxone, f/u cultures -improving, WBC resolving, fluids held in light of overload #cardiac -continues complaining of chest pain, repeat troponin and EKG ordered, morphine 2mg IV -troponin 5.51 -->30.2-->22.9-->pending -initial EKG w/ ST depressions in I and AVL suggesting acute ischemia -serial EKGs benign, latest pending -Plavix 75, ASA 81 -heparin gtt x 72 hours total (2:30pm today will be 48 hours) -cardiology on board -echo: moderate to severely reduced LV function, moderate MV thickening, moderate MR, moderate TR, E/A reversal c/w poor LV compliance -strict I&O, daily weights -fluids held -Lasix 20 IV (patient is lasix naive) #renal -JOSE: improving -U Cr, U lytes pending -avoid nephrotoxic agents #GI -LFTs wnl #FEN -LR @ 50 -monitor BMP -dysphagia puree w/ nectar liquid #PPx -DVT: heparin gtt -GI: not indicated at this time #Dispo -ICU -code status: DNR/DNI Visit type - Emergency Visit Emergency Visit: No - New Patient This patient is new to me today: No - Critical Care Critical Care patient: Yes Total Critical Care Time (in minutes): 40 Critical Care Statement: The care of this patient involved high complexity decision making to prevent further life threatening deterioration of the patient 's condition and/or to evaluate & treat vital organ system(s) failure or risk of failure.
[2018-06-11] MEDS ORDERED: CALCIUM ACETATE 667 MG CAPSULE (FP) PO SCH (12:00)
--- NOTE | 2018-06-11 12:41 | PN ---
Progress Note (short form) - Note Progress Note: s: no overnight events, denies sob cp palps dizzy; confused (baseline dementia) o: Vital Signs Temp 97.4 F L 06/11/18 10:00 Pulse 106 H 06/11/18 10:00 Resp 24 H 06/11/18 10:00 BP 135/94 06/11/18 10:00 Pulse Ox 97 06/11/18 12:32 Intake & Output 06/10/18 06/11/18 06/11/18 23:59 11:59 23:59 Intake Total 1140 740 Output Total 100 Balance 1040 740 Weight 119 lb 4.321 oz Intake: IV 790 640 Heparin - 25,000 Unit In 240 240 Normal Saline - 495 ml @ 1,000 UNIT/HR 20 mls/hr IV TITR [facility] Rx#: [id number] LACTATED RINGERS SOLUTION 550 400 1,000 ml In 1,000 ml @ 50 mls/hr IV ASDIR [facility] Rx #:[id number] IVPB 350 100 Output: Urine 100 Void 100 Other: Voiding Method Incontinent Diaper # Unmeasured Voids Void 1 1 Bowel Movement No No Weight Measurement Method Built in [facility] nad no jvd rrr s1s2 no mrg bl rhonchi, nl eff no le e/c/c abd nt nd pos bs no jaundice diaphoresis awake, confused Current Medications Generic Name Dose Route Start Last Admin Trade Name Freq PRN Reason Stop Dose Admin Albuterol Sulfate 1 amp 06/09/18 13:19 06/11/18 00:34 Ventolin 0.083% Nebulizer Soln - NEB 1 amp Q4H PRN Administration SHORT OF BREATH/WHEEZING Albuterol/Ipratropium 1 amp 06/09/18 16:00 06/11/18 12:32 Duoneb - NEB 1 amp RQID [facility] Administration Aspirin 81 mg 06/11/18 10:00 06/11/18 10:07 Ecotrin - PO 81 mg DAILY [facility] Administration Atorvastatin Calcium 10 mg 06/09/18 22:00 06/10/18 21:38 Lipitor - PO 10 mg HS [facility] Administration Chlorhexidine Gluconate 1 applic 06/09/18 22:00 06/10/18 21:38 Hibiclens For Decolonization - TP 1 applic HS [facility] Administration Cholecalciferol 1,000 unit 06/10/18 10:00 06/11/18 10:07 Vitamin D3 - PO 1,000 unit DAILY [facility] Administration Clopidogrel Bisulfate 75 mg 06/11/18 10:00 06/11/18 10:07 Plavix - PO 75 mg DAILY [facility] Administration Heparin Sodium (Porcine) 1,000 unit 06/09/18 14:18 Heparin - IVPUSH PRN PRN Heparin Heparin Sodium (Porcine) 5,000 unit 06/09/18 14:18 Heparin - IVPUSH PRN PRN Heparin Heparin Sodium (Porcine) 25, 500 mls @ 20 mls/hr 06/09/18 14:30 06/11/18 09: 33 000 unit/ Sodium Chloride IV 1,000 unit/hr TITR [facility] 20 mls/hr Titration Protocol 1,000 UNIT/HR Azithromycin 500 mg in 250 mls @ 250 mls/hr 06/10/18 10:00 06/11/18 10:08 Zithromax 500mg Ivpb (Pre-Docked) IVPB 250 mls/hr DAILY [facility] Administration Ceftriaxone Sodium 1 gm/ 50 mls @ 100 mls/hr 06/10/18 10:00 06/11/18 10:06 Dextrose IVPB 100 mls/hr DAILY [facility] Administration Protocol Methylprednisolone Sodium Succinate 40 mg 06/10/18 15:30 06/11/18 10:04 Solu-Medrol - IVPUSH 06/14/18 10:01 40 mg DAILY [facility] Administration Mupirocin 1 applic 06/09/18 22:00 06/11/18 10:07 Bactroban Ointment (For Decolonization) - NS 06/14/18 21:59 1 applic BID [facility] Administration Laboratory Last Values WBC 14.2 K/mm3 (4.0-10.0) H 06/11/18 05:30 RBC 3.58 M/mm3 (4.00-5.60) L 06/11/18 05:30 Hgb 11.3 GM/dL (11.7-16.9) L 06/11/18 05:30 Hct 35.5 % (35.4-49) 06/11/18 05:30 MCV 99.3 fl (80-96) H 06/11/18 05:30 MCH 31.5 pg (25.7-33.7) 06/11/18 05:30 MCHC 31.7 g/dl (32.0-35.9) L 06/11/18 05:30 RDW 13.1 % (11.9-15.9) 06/11/18 05:30 Plt Count 252 K/MM3 (134-434) 06/11/18 05:30 MPV 9.3 fl (7.5-11.1) 06/11/18 05:30 Absolute Neuts (auto) 12.5 K/mm3 (1.5-8.0) H 06/11/18 05:30 Neutrophils % 88.0 % (42.8-82.8) H 06/11/18 05:30 Neutrophils % (Manual) 85.6 % (42.8-82.8) H 06/09/18 12:08 Band Neutrophils % 9.3 % 06/09/18 12:08 Lymphocytes % 7.4 % (8-40) L D 06/11/18 05:30 Lymphocytes % (Manual) 2.0 % (8-40) L 06/09/18 12:08 Monocytes % 4.5 % (3.8-10.2) 06/11/18 05:30 Monocytes % (Manual) 2 % (3.8-10.2) L 06/09/18 12:08 Eosinophils % 0.0 % (0-4.5) D 06/11/18 05:30 Eosinophils % (Manual) 0.0 % (0-4.5) 06/09/18 12:08 Basophils % 0.1 % (0-2.0) 06/11/18 05:30 Basophils % (Manual) 0.0 % (0-2.0) 06/09/18 12:08 Myelocytes % (Man) 0 % (0-2) 06/09/18 12:08 Promyelocytes % (Man) 0 % (0-2) 06/09/18 12:08 Blast Cells % (Manual) 0 % (0-0) 06/09/18 12:08 Nucleated RBC % 0 % (0-0) 06/11/18 05:30 Metamyelocytes 0 % (0-2) 06/09/18 12:08 Hypochromia 0 06/09/18 12:08 Platelet Estimate Normal 06/09/18 12:08 Polychromasia 1+ 06/09/18 12:08 Poikilocytosis 0 06/09/18 12:08 Anisocytosis 3+ 06/09/18 12:08 Microcytosis 3+ 06/09/18 12:08 Macrocytosis 0 06/09/18 12:08 Stomatocytes 1+ 06/09/18 12:08 PT with INR 12.80 SEC (9.7-13.0) 06/09/18 11:05 INR 1.08 (0.83-1.09) 06/09/18 11:05 PTT (Actin FS) 73.3 SECONDS (25.2-36.5) H 06/11/18 05:30 D-Dimer 1945 ng/ml (0-500) H 06/09/18 11:05 Anticoagulation Therapy No Result Required. 06/10/18 06:10 Puncture Site Right radial 06/10/18 06:10 ABG pH 7.43 (7.35-7.45) 06/10/18 06:10 ABG pCO2 at Pt Temp 36.4 mmHg (35-45) 06/10/18 06:10 ABG pO2 at Pt Temp 107.0 mmHg (68-100) H D 06/10/18 06:10 ABG HCO3 23.8 meq/L (22-26) 06/10/18 06:10 ABG O2 Sat (Measured) 98.2 % (90-98.9) 06/10/18 06:10 ABG O2 Content 14.4 % vol (15-22) L 06/10/18 06:10 ABG Base Excess 0.3 meq/l (-2-2) 06/10/18 06:10 Antonio Test Positive 06/10/18 06:10 O2 Delivery Device No Result Required. 06/10/18 06:10 Oxygen Flow Rate 60 06/10/18 06:10 Vent Mode No Result Required. 06/10/18 06:10 Vent Rate 14 06/10/18 06:10 Mechanical Rate No Result Required. 06/10/18 06:10 Pressure Support Vent No Result Required. 06/10/18 06:10 Sodium 143 mmol/L (136-145) 06/11/18 05:30 Potassium 5.2 mmol/L (3.5-5.1) H 06/11/18 05:30 Chloride 108 mmol/L (98-107) H 06/11/18 05:30 Carbon Dioxide 26 mmol/L (21-32) 06/11/18 05:30 Anion Gap 8 MMOL/L (8-16) 06/11/18 05:30 BUN 44 mg/dL (7-18) H 06/11/18 05:30 Creatinine 1.9 mg/dL (0.55-1.3) H 06/11/18 05:30 Creat Clearance w eGFR 33.54 (>60) 06/11/18 05:30 Random Glucose 142 mg/dL (74-106) H 06/11/18 05:30 Lactic Acid 3.6 mmol/L (0.4-2.0) H* 06/09/18 14:59 Calcium 9.0 mg/dL (8.5-10.1) 06/11/18 05:30 Phosphorus 5.4 mg/dL (2.5-4.9) H 06/11/18 05:30 Magnesium 2.3 mg/dL (1.8-2.4) 06/11/18 05:30 Total Bilirubin 0.6 mg/dL (0.2-1) 06/09/18 12:08 AST 37 U/L (15-37) 06/09/18 12:08 ALT 21 U/L (13-61) 06/09/18 12:08 Alkaline Phosphatase 115 U/L (45-117) 06/09/18 12:08 Creatine Kinase 266 IU/L (26-308) 06/09/18 12:08 Creatine Kinase Index 11.8 % (0.0-5.0) H* 06/09/18 12:08 CK-MB (CK-2) 31.4 ng/mL (0.5-3.6) H 06/09/18 12:08 Troponin I 10.30 ng/ml (0.00-0.05) H* 06/11/18 05:30 B-Natriuretic Peptide 48989.7 pg/ml (5-450) H 06/09/18 14:59 Total Protein 6.4 g/dl (6.4-8.2) 06/09/18 12:08 Albumin 3.2 g/dl (3.4-5.0) L 06/09/18 12:08 Triglycerides 97 mg/dL (0-150) 06/10/18 05:30 Cholesterol 136 mg/dL (50-200) 06/10/18 05:30 Total LDL Cholesterol 73 mg/dL (5-100) 06/10/18 05:30 HDL Cholesterol 53 mg/dL (40-60) 06/10/18 05:30 TSH 1.73 uIU/ml (0.358-3.74) 06/09/18 14:59 cxr: worse chf ecg: sr, nl intervals, no ischemic changes echo: 12/2015: nl lv/rv, no sig valve path, nl rvsp echo 05/2018: tds; mod-sev dec lvef, rv tds, mod mr, mild-mod tr, nl rvsp tele: sr mibi 03/2011: no ischemia/scar est cct 35 mins a/p: 88 m hx dementia, htn, hld, prostate ca here with sob. nstemi: -elevated trop and ckmb c/w nstemi -ecg unremarkable -cont statin, asa, plavix. agree with hep gtt for 72 hrs. -echo shows newly reduced lvef and cxr today with congestion-->ivfs stopped, lasix 20 iv given -will start chf regimen with lisette/bb after acute infection issues resolve -cont tele -further ischemic eval based on clinical course-->now dnr/dni per family sepsis, pna: -cont abx -icu care sob: -no signs chf -likely due to mi/pna/sepsis. treatment as above. linda: -likely 2/2 sepsis -monitor cr trend htn: -hold home dilt in setting of sepsis, monitor bp hld: -cont statin
--- NOTE | 2018-06-11 13:33 | PN ---
Teaching Attending Note Name of Resident: Jareth Kauffman ATTENDING PHYSICIAN STATEMENT I saw and evaluated the patient. I reviewed the resident's note and discussed the case with the resident. I agree with the resident's findings and plan as documented. SUBJECTIVE: Patient seen and examined in the ICU. Remains mildly tachypneic on HF OT. Mental status has improved and is able to communicate. Improved epigastric discomfort. OBJECTIVE: Intake & Output 06/08/18 06/09/18 06/10/18 06/11/18 23:59 23:59 23:59 23:59 Intake Total 400 2252 740 Output Total 100 Balance 400 2152 740 Weight 212 lb 11.937 oz 212 lb 11.937 oz 119 lb 4.321 oz Last Vital Signs Temp Pulse Resp BP Pulse Ox 97.4 F L 114 H 24 H 132/89 97 06/11/18 10:00 06/11/18 12:00 06/11/18 12:00 06/11/18 12:00 06/11/18 12:32 Active Medications Albuterol Sulfate (Ventolin 0.083% Nebulizer Soln -) 1 amp NEB Q4H PRN PRN Reason: SHORT OF BREATH/WHEEZING Last Admin: 06/11/18 00:34 Dose: 1 amp Albuterol/Ipratropium (Duoneb -) 1 amp NEB RQID [facility] Last Admin: 06/11/18 12:32 Dose: 1 amp Aspirin (Ecotrin -) 81 mg PO DAILY [facility] Last Admin: 06/11/18 10:07 Dose: 81 mg Atorvastatin Calcium (Lipitor -) 10 mg PO HS [facility] Last Admin: 06/10/18 21:38 Dose: 10 mg Chlorhexidine Gluconate (Hibiclens For Decolonization -) 1 applic TP HS [facility] Last Admin: 06/10/18 21:38 Dose: 1 applic Cholecalciferol (Vitamin D3 -) 1,000 unit PO DAILY [facility] Last Admin: 06/11/18 10:07 Dose: 1,000 unit Clopidogrel Bisulfate (Plavix -) 75 mg PO DAILY [facility] Last Admin: 06/11/18 10:07 Dose: 75 mg Heparin Sodium (Porcine) (Heparin -) 1,000 unit IVPUSH PRN PRN PRN Reason: Heparin Heparin Sodium (Porcine) (Heparin -) 5,000 unit IVPUSH PRN PRN PRN Reason: Heparin Heparin Sodium (Porcine) 25, (000 unit/ Sodium Chloride) 500 mls @ 20 mls/hr IV TITR [facility]; Protocol Last Titration: 06/11/18 09:33 Dose: 1,000 unit/hr, 20 mls/hr Azithromycin (Zithromax 500mg Ivpb (Pre-Docked)) 500 mg in 250 mls @ 250 mls/ hr IVPB DAILY [facility] Last Admin: 06/11/18 10:08 Dose: 250 mls/hr Ceftriaxone Sodium 1 gm/ (Dextrose) 50 mls @ 100 mls/hr IVPB DAILY [facility]; Protocol Last Admin: 06/11/18 10:06 Dose: 100 mls/hr Methylprednisolone Sodium Succinate (Solu-Medrol -) 40 mg IVPUSH DAILY [facility] Stop: 06/14/18 10:01 Last Admin: 06/11/18 10:04 Dose: 40 mg Mupirocin (Bactroban Ointment (For Decolonization) -) 1 applic NS BID [facility] Stop: 06/14/18 21:59 Last Admin: 06/11/18 10:07 Dose: 1 applic Gen: Awake and interactive, mildly tachypneic on HF OT Heart: tachycardic, regular Lung: scattered rhonchi Abd: soft, nontender Ext: no edema Laboratory Results - last 24 hr 06/10/18 06/11/18 06/11/18 15:45 05:30 05:30 WBC RBC Hgb Hct MCV MCH MCHC RDW Plt Count MPV Absolute Neuts (auto) Neutrophils % Lymphocytes % Monocytes % Eosinophils % Basophils % Nucleated RBC % PTT (Actin FS) 66.8 H 73.3 H Sodium 143 Potassium 5.2 H Chloride 108 H Carbon Dioxide 26 Anion Gap 8 BUN 44 H Creatinine 1.9 H Creat Clearance w eGFR 33.54 Random Glucose 142 H Calcium 9.0 Phosphorus 5.4 H Magnesium 2.3 Troponin I 10.30 H* 06/11/18 06/11/18 05:30 05:30 WBC 14.2 H RBC 3.58 L Hgb 11.3 L Hct 35.5 MCV 99.3 H MCH 31.5 MCHC 31.7 L RDW 13.1 Plt Count 252 MPV 9.3 Absolute Neuts (auto) 12.5 H Neutrophils % 88.0 H Lymphocytes % 7.4 L D Monocytes % 4.5 Eosinophils % 0.0 D Basophils % 0.1 Nucleated RBC % 0 PTT (Actin FS) Sodium Potassium Chloride Carbon Dioxide Anion Gap BUN Creatinine Creat Clearance w eGFR Random Glucose Calcium Phosphorus Magnesium Troponin I Cancelled ASSESSMENT AND PLAN: Acute Hypoxic Respiratory Failure Pneumonia R/O Sepsis: Low clinical suspicion Lactic Acidosis Acute Kidney Injury +Troponins Acute NSTEMI Dementia - Daily Medrol - Wean HF OT - IV ABX - Follow up final cultures - Monitor urine output, creatinine - beta carole, ASA, statin - AC - Cardiology evaluation noted - O2 to keep Spo2 >90% - Aspiration precautions - DVT prophylaxis - ICU monitoring for tenuous respiratory status and HF OT Dr Babcock Critical care time spent in reviewing chart, evaluating patient and formulating plan 35 min
[2018-06-11 13:59] LABS: ANION GAP 11 MMOL/L (8-16); BLOOD UREA NITROGEN 49 mg/dL (7-18); CALCIUM 8.8 mg/dL (8.5-10.1); CHLORIDE 106 mmol/L (98-107); CO2 22 mmol/L (21-32); CREATININE 1.9 mg/dL (0.55-1.3); GLUCOSE,RANDOM 211 mg/dL (74-106); POTASSIUM 5.1 mmol/L (3.5-5.1); SODIUM 139 mmol/L (136-145)
[2018-06-11] MEDS: HEPARIN - 25,000 UNIT in SODIUM CHLORIDE 495 ML IV SCH (17:37)
[2018-06-11] MEDS ORDERED: METOPROLOL TARTRATE 5 MG/5 ML VIAL IVPUSH ONE ×2 (17:40→18:00)
[2018-06-11] MEDS ORDERED: morphine SULFATE 4 MG/ML VIAL ONE (17:44)
--- NOTE | 2018-06-11 17:56 | PN ---
Progress Note (short form) - Note Progress Note: Pt. found to be tachycardic to 190s on telemetry monitoring, Pt. found to be diaphoretic. Pt. complaining of increasing chest pain. Pt. given Lopressor 5mg x2 and Morphine 2 mg x 2. Pt responded well and returned to sinus rhythm. Pt. is DNR/DNI. EKG at bedside however Pt. reverted to sinus rhythm before eKG could be done.
[2018-06-11] MEDS ORDERED: morphine CARPU-JECT 2 MG/1 ML DISP.SYRIN IVPUSH ONE (18:00)
[2018-06-11] MEDS: ATORVASTATIN CA 10 MG TABLET (FP) PO SCH (21:42)
[2018-06-11] MEDS: CHLORHEXIDINE GLUCONATE 4% CLEANSER FOR DECOLONIZATION TP SCH (21:44)
[2018-06-12] MEDS ORDERED: METOPROLOL TARTRATE 5 MG/5 ML VIAL IVPUSH ONE ×6 (01:13→07:02)
[2018-06-12] MEDS: METOPROLOL TARTRATE 5 MG/5 ML VIAL IVPUSH PRN (05:15)
[2018-06-12 06:31] LABS: BASO % 0.4 % (0-2.0); EOS % 0.5 % (0-4.5); HEMATOCRIT 35.5 % (35.4-49); HEMOGLOBIN 11.6 GM/dL (11.7-16.9); MCH 32.3 pg (25.7-33.7); MCHC 32.6 g/dl (32.0-35.9); MEAN PLT VOLUME 9.7 fl (7.5-11.1); MONO % 6.4 % (3.8-10.2); NEUT % 85.7 % (42.8-82.8); PLATELET COUNT 293 K/MM3 (134-434); RBC 3.58 M/mm3 (4.00-5.60); RDW 12.7 % (11.9-15.9); WHITE BLOOD COUNT 18.3 K/mm3 (4.0-10.0)
[2018-06-12] MEDS ORDERED: METOPROLOL TARTRATE 5 MG/5 ML VIAL ONE (06:56)
[2018-06-12 07:00] LABS: ANION GAP 13 MMOL/L (8-16); BLOOD UREA NITROGEN 65 mg/dL (7-18); CALCIUM 8.9 mg/dL (8.5-10.1); CHLORIDE 109 mmol/L (98-107); CO2 24 mmol/L (21-32); CREATININE 2.1 mg/dL (0.55-1.3); GLUCOSE,RANDOM 151 mg/dL (74-106); MAGNESIUM 2.5 mg/dL (1.8-2.4); PHOSPHOROUS 4.9 mg/dL (2.5-4.9); POTASSIUM 5.1 mmol/L (3.5-5.1); SODIUM 146 mmol/L (136-145)
[2018-06-12] MEDS ORDERED: dilTIAZem HCL 50 MG/10 ML - 10 ML VIAL IVPUSH ONE (07:02)
[2018-06-12] MEDS ORDERED: MORPHINE SULFATE 2 MG/ML VIAL IVPUSH ONE ×2 (07:04→14:58)
[2018-06-12] MEDS ORDERED: AMIODARONE HCL 150 MG/3 ML VIAL ONE (07:07)
[2018-06-12] MEDS ORDERED: morphine SULFATE 4 MG/ML VIAL ONE ×2 (07:08→14:59)
[2018-06-12] MEDS ORDERED: LABETALOL HCL INJECTION 1,000 MG in DEXTROSE 5%-WATER - 800 ML IV SCH (07:15)
[2018-06-12] MEDS: DILTIAZEM INJECTION 125 MG in DEXTROSE 5%-WATER - 100 ML IVPB SCH (07:21)
[2018-06-12] MEDS: ALBUTEROL SO4 2.5/IPRATROPIUM 0.5 INH SOL 3 ML VIAL.NEB. NEB SCH ×4 (08:22→21:00)
[2018-06-12] MEDS ORDERED: cefTRIAXone SODIUM 1 GM VIAL ONE (08:44)
[2018-06-12] MEDS ORDERED: DEXTROSE 5%-WATER - 50 ML IVPB ONE (08:45)
[2018-06-12] MEDS: CLOPIDOGREL BISULFATE 75 MG TABLET (FP) PO SCH (09:14)
[2018-06-12] MEDS: CEFTRIAXONE 1 GM in DEXTROSE 5%-WATER - 50 ML IVPB SCH (09:14)
[2018-06-12] MEDS: CHOLECALCIFEROL (VITAMIN D3) 1,000 UNIT TABLET (FP) PO SCH (09:14)
[2018-06-12] MEDS: AZITHROMYCIN IVPB 500 MG/250 ML BAG IVPB SCH (09:14)
[2018-06-12] MEDS: methylPREDNISolone NA SUCC 40 MG/1 ML VIAL IVPUSH SCH (09:14)
[2018-06-12] MEDS: ASPIRIN COATED 81 MG TABLET.EC PO SCH (09:14)
[2018-06-12] MEDS: MUPIROCIN 2% TOPICAL OINTMENT FOR DECOLONIZATION NS SCH ×2 (09:15→21:14)
[2018-06-12] MEDS ORDERED: FUROSEMIDE 40 MG/4 ML INJECTABLE VIAL IVPUSH ONE ×2 (10:06→10:08)
[2018-06-12] MEDS ORDERED: AMIODARONE HCL 150 MG/3 ML VIAL IVPUSH ONE (10:13)
[2018-06-12] MEDS ORDERED: SODIUM CHLORIDE 0.9% 500 ML INFUS.BAG IV ONE (10:14)
--- NOTE | 2018-06-12 11:01 | PN ---
Teaching Attending Note Name of Resident: Jareth Kauffman ATTENDING PHYSICIAN STATEMENT I saw and evaluated the patient. I reviewed the resident's note and discussed the case with the resident. I agree with the resident's findings and plan as documented. SUBJECTIVE: Patient seen and examined in the ICU. Suspected AFib last night requiring IV Amiodarone. Became tachypneic and hypoxic on HF OT and needed to be placed back on NIPPV. Noted rise in troponin likely due to demand ischemia. OBJECTIVE: Intake & Output 06/09/18 06/10/18 06/11/18 06/12/18 23:59 23:59 23:59 23:59 Intake Total 400 2252 1480 209 Output Total 100 Balance 400 2152 1480 209 Weight 212 lb 11.937 oz 212 lb 11.937 oz 205 lb 216 lb 0.848 oz Last Vital Signs Temp Pulse Resp BP Pulse Ox 98.4 F 79 24 H 121/74 100 06/12/18 10:00 06/12/18 10:00 06/12/18 10:00 06/12/18 10:00 06/12/18 08:31 Active Medications Albuterol Sulfate (Ventolin 0.083% Nebulizer Soln -) 1 amp NEB Q4H PRN PRN Reason: SHORT OF BREATH/WHEEZING Last Admin: 06/11/18 00:34 Dose: 1 amp Albuterol/Ipratropium (Duoneb -) 1 amp NEB RQID [facility] Last Admin: 06/12/18 08:22 Dose: 1 amp Amiodarone HCl (Cordarone Injection -) 150 mg IVPUSH ONCE ONE Stop: 06/12/18 10:14 Aspirin (Ecotrin -) 81 mg PO DAILY [facility] Last Admin: 06/12/18 09:14 Dose: 81 mg Atorvastatin Calcium (Lipitor -) 10 mg PO HS [facility] Last Admin: 06/11/18 21:42 Dose: 10 mg Chlorhexidine Gluconate (Hibiclens For Decolonization -) 1 applic TP HS [facility] Last Admin: 06/11/18 21:44 Dose: 1 applic Cholecalciferol (Vitamin D3 -) 1,000 unit PO DAILY [facility] Last Admin: 06/12/18 09:14 Dose: 1,000 unit Clopidogrel Bisulfate (Plavix -) 75 mg PO DAILY [facility] Last Admin: 06/12/18 09:14 Dose: 75 mg Furosemide (Lasix Injection -) 40 mg IVPUSH ONCE ONE Stop: 06/12/18 10:09 Last Admin: 06/12/18 10:25 Dose: 40 mg Heparin Sodium (Porcine) (Heparin -) 1,000 unit IVPUSH PRN PRN PRN Reason: Heparin Last Admin: 06/12/18 09:15 Dose: 1,000 unit Heparin Sodium (Porcine) (Heparin -) 5,000 unit IVPUSH PRN PRN PRN Reason: Heparin Heparin Sodium (Porcine) 25, (000 unit/ Sodium Chloride) 500 mls @ 20 mls/hr IV TITR [facility]; Protocol Last Titration: 06/12/18 09:15 Dose: 1,100 unit/hr, 22 mls/hr Azithromycin (Zithromax 500mg Ivpb (Pre-Docked)) 500 mg in 250 mls @ 250 mls/ hr IVPB DAILY [facility] Last Admin: 06/12/18 09:14 Dose: 250 mls/hr Ceftriaxone Sodium 1 gm/ (Dextrose) 50 mls @ 100 mls/hr IVPB DAILY [facility]; Protocol Last Admin: 06/12/18 09:14 Dose: 100 mls/hr Diltiazem HCl 125 mg/ Dextrose 125 mls @ 5 mls/hr IVPB TITR [facility]; Protocol Last Admin: 06/12/18 07:21 Dose: 5 mg/hr, 5 mls/hr Methylprednisolone Sodium Succinate (Solu-Medrol -) 40 mg IVPUSH DAILY [facility] Stop: 06/14/18 10:01 Last Admin: 06/12/18 09:14 Dose: 40 mg Metoprolol Tartrate (Lopressor Injection -) 5 mg IVPUSH Q4H PRN PRN Reason: TACHYCARDIA Last Admin: 06/12/18 05:15 Dose: 5 mg Mupirocin (Bactroban Ointment (For Decolonization) -) 1 applic NS BID [facility] Stop: 06/14/18 21:59 Last Admin: 06/12/18 09:15 Dose: 1 applic Sodium Chloride (Normal Saline -) 100 ml IV ONCE ONE Stop: 06/12/18 10:15 Gen: Awake and interactive, mildly tachypneic on NIPPV Heart: tachycardic, regular Lung: scattered rhonchi Abd: soft, nontender Ext: no edema Laboratory Results - last 24 hr 06/11/18 06/11/18 06/12/18 13:00 18:45 05:30 WBC RBC Hgb Hct MCV MCH MCHC RDW Plt Count MPV Absolute Neuts (auto) Neutrophils % Lymphocytes % Monocytes % Eosinophils % Basophils % Nucleated RBC % PTT (Actin FS) 47.7 H Sodium 139 Potassium 5.1 Chloride 106 Carbon Dioxide 22 Anion Gap 11 BUN 49 H Creatinine 1.9 H Creat Clearance w eGFR 33.54 Random Glucose 211 H Calcium 8.8 Phosphorus Magnesium Troponin I 7.91 H* 06/12/18 06/12/18 05:30 05:30 WBC 18.3 H RBC 3.58 L Hgb 11.6 L Hct 35.5 MCV 99.0 H MCH 32.3 MCHC 32.6 RDW 12.7 Plt Count 293 MPV 9.7 Absolute Neuts (auto) 15.7 H Neutrophils % 85.7 H Lymphocytes % 7.0 L Monocytes % 6.4 Eosinophils % 0.5 D Basophils % 0.4 D Nucleated RBC % 0 PTT (Actin FS) Sodium 146 H Potassium 5.1 Chloride 109 H Carbon Dioxide 24 Anion Gap 13 BUN 65 H Creatinine 2.1 H Creat Clearance w eGFR 29.89 Random Glucose 151 H Calcium 8.9 Phosphorus 4.9 Magnesium 2.5 H Troponin I 8.84 H* ASSESSMENT AND PLAN: Acute Hypoxic Respiratory Failure Pneumonia R/O Sepsis: Low clinical suspicion Lactic Acidosis Acute Kidney Injury +Troponins Acute NSTEMI Dementia - NIPPV - Medrol - IV ABX - Follow up final cultures - Monitor urine output, creatinine - beta carole, ASA, statin - AC per Cardiology - O2 to keep Spo2 >90% - Aspiration precautions - DVT prophylaxis - ICU monitoring for tenuous respiratory status Dr Babcock Critical care time spent in reviewing chart, evaluating patient and formulating plan 35 min
--- NOTE | 2018-06-12 11:43 | PN ---
Progress Note, Physician History of Present Illness: Awake, but confused Offers no complaints Slightly tachypneic on bipap Temps down afebrile WBC remains elevated CXR increased markings L lung field - Current Medication List Current Medications: Active Medications Albuterol Sulfate (Ventolin 0.083% Nebulizer Soln -) 1 amp NEB Q4H PRN PRN Reason: SHORT OF BREATH/WHEEZING Last Admin: 06/11/18 00:34 Dose: 1 amp Albuterol/Ipratropium (Duoneb -) 1 amp NEB RQID [facility] Last Admin: 06/12/18 08:22 Dose: 1 amp Amiodarone HCl (Cordarone Injection -) 150 mg IVPUSH ONCE ONE Stop: 06/12/18 10:14 Aspirin (Ecotrin -) 81 mg PO DAILY [facility] Last Admin: 06/12/18 09:14 Dose: 81 mg Atorvastatin Calcium (Lipitor -) 10 mg PO HS [facility] Last Admin: 06/11/18 21:42 Dose: 10 mg Chlorhexidine Gluconate (Hibiclens For Decolonization -) 1 applic TP HS [facility] Last Admin: 06/11/18 21:44 Dose: 1 applic Cholecalciferol (Vitamin D3 -) 1,000 unit PO DAILY [facility] Last Admin: 06/12/18 09:14 Dose: 1,000 unit Clopidogrel Bisulfate (Plavix -) 75 mg PO DAILY [facility] Last Admin: 06/12/18 09:14 Dose: 75 mg Furosemide (Lasix Injection -) 40 mg IVPUSH ONCE ONE Stop: 06/12/18 10:09 Last Admin: 06/12/18 10:25 Dose: 40 mg Heparin Sodium (Porcine) (Heparin -) 1,000 unit IVPUSH PRN PRN PRN Reason: Heparin Last Admin: 06/12/18 09:15 Dose: 1,000 unit Heparin Sodium (Porcine) (Heparin -) 5,000 unit IVPUSH PRN PRN PRN Reason: Heparin Heparin Sodium (Porcine) 25, (000 unit/ Sodium Chloride) 500 mls @ 20 mls/hr IV TITR [facility]; Protocol Last Titration: 06/12/18 09:15 Dose: 1,100 unit/hr, 22 mls/hr Azithromycin (Zithromax 500mg Ivpb (Pre-Docked)) 500 mg in 250 mls @ 250 mls/ hr IVPB DAILY [facility] Last Admin: 06/12/18 09:14 Dose: 250 mls/hr Ceftriaxone Sodium 1 gm/ (Dextrose) 50 mls @ 100 mls/hr IVPB DAILY [facility]; Protocol Last Admin: 06/12/18 09:14 Dose: 100 mls/hr Diltiazem HCl 125 mg/ Dextrose 125 mls @ 5 mls/hr IVPB TITR [facility]; Protocol Last Admin: 06/12/18 07:21 Dose: 5 mg/hr, 5 mls/hr Methylprednisolone Sodium Succinate (Solu-Medrol -) 40 mg IVPUSH DAILY [facility] Stop: 06/14/18 10:01 Last Admin: 06/12/18 09:14 Dose: 40 mg Metoprolol Tartrate (Lopressor Injection -) 5 mg IVPUSH Q4H PRN PRN Reason: TACHYCARDIA Last Admin: 06/12/18 05:15 Dose: 5 mg Mupirocin (Bactroban Ointment (For Decolonization) -) 1 applic NS BID [facility] Stop: 06/14/18 21:59 Last Admin: 06/12/18 09:15 Dose: 1 applic Sodium Chloride (Normal Saline -) 100 ml IV ONCE ONE Stop: 06/12/18 10:15 - Objective Vital Signs: Vital Signs Temperature 98.4 F 06/12/18 10:00 Pulse Rate 79 06/12/18 10:00 Respiratory Rate 24 H 06/12/18 10:00 Blood Pressure 121/74 06/12/18 10:00 O2 Sat by Pulse Oximetry (%) 97 06/12/18 11:09 Constitutional: Yes: No Distress, Obese Eyes: Yes: Conjunctiva Clear Cardiovascular: Yes: S1, S2. No: Regular Rate and Rhythm Respiratory: Yes: Diminished Gastrointestinal: Yes: Normal Bowel Sounds, Soft, Abdomen, Obese. No: Tenderness Edema: Yes Labs: CBC, BMP 06/12/18 05:30 06/12/18 05:30 INR, PTT INR 1.08 (0.83-1.09) 06/09/18 11:05 Assessment/Plan Hypoxemic resp failure LLL pneumonia Sepsis lactic acidosis NSTEMI Azotemia OBS Continue zithromax/ ceftriaxone Bipap
--- NOTE | 2018-06-12 13:19 | PN ---
Physical Exam: SUBJECTIVE: Patient seen and examined at bedside. Desaturated overnight on high flow requiring transition back to NIPPV. Additionally became tachy to 190s overnight, sinus tachy. Did not resolve with lopressor, broken on amiodarone 150 , now on cardizem drip. OBJECTIVE: Vital Signs Period Temp Pulse Resp BP Sys/Boyer Pulse Ox Last 24 Hr 98.4 F-98.5 F 79-190 14-27 102-153/72-100 95-100 GENERAL: Awake, alert, oriented only to name and forgetful, verbally fluent (at baseline per son) HEAD: NC/AT EYES: PERRLA, EOMI EARS, NOSE, THROAT: Moist mucous membranes. NECK: supple without lymphadenopathy LUNGS: Decreased breath sounds on left, diffuse crackles HEART: Tachycardic S1S2 nl, chest pain not reproducible ABDOMEN: +bs, soft, NT, ND EXTREMITIES: 2+ pulses, warm, well-perfused, non-pitting edema b/l NEUROLOGICAL: Moves 4 extremities spontaneously and complies with commands, motor strength and sensation grossly intact throughout Laboratory Results - last 24 hr 06/11/18 06/11/18 06/12/18 13:00 18:45 05:30 WBC RBC Hgb Hct MCV MCH MCHC RDW Plt Count MPV Absolute Neuts (auto) Neutrophils % Lymphocytes % Monocytes % Eosinophils % Basophils % Nucleated RBC % PTT (Actin FS) 47.7 H Sodium 139 Potassium 5.1 Chloride 106 Carbon Dioxide 22 Anion Gap 11 BUN 49 H Creatinine 1.9 H Creat Clearance w eGFR 33.54 Random Glucose 211 H Calcium 8.8 Phosphorus Magnesium Troponin I 7.91 H* 06/12/18 06/12/18 05:30 05:30 WBC 18.3 H RBC 3.58 L Hgb 11.6 L Hct 35.5 MCV 99.0 H MCH 32.3 MCHC 32.6 RDW 12.7 Plt Count 293 MPV 9.7 Absolute Neuts (auto) 15.7 H Neutrophils % 85.7 H Lymphocytes % 7.0 L Monocytes % 6.4 Eosinophils % 0.5 D Basophils % 0.4 D Nucleated RBC % 0 PTT (Actin FS) Sodium 146 H Potassium 5.1 Chloride 109 H Carbon Dioxide 24 Anion Gap 13 BUN 65 H Creatinine 2.1 H Creat Clearance w eGFR 29.89 Random Glucose 151 H Calcium 8.9 Phosphorus 4.9 Magnesium 2.5 H Troponin I 8.84 H* Active Medications Generic Name Dose Route Start Last Admin Trade Name Freq PRN Reason Stop Dose Admin Albuterol Sulfate 1 amp 06/09/18 13:19 06/11/18 00:34 Ventolin 0.083% Nebulizer Soln - NEB 1 amp Q4H PRN Administration SHORT OF BREATH/WHEEZING Albuterol/Ipratropium 1 amp 06/09/18 16:00 06/12/18 12:25 Duoneb - NEB 1 amp RQID [facility] Administration Aspirin 81 mg 06/11/18 10:00 06/12/18 09:14 Ecotrin - PO 81 mg DAILY [facility] Administration Atorvastatin Calcium 10 mg 06/09/18 22:00 06/11/18 21:42 Lipitor - PO 10 mg HS [facility] Administration Chlorhexidine Gluconate 1 applic 06/09/18 22:00 06/11/18 21:44 Hibiclens For Decolonization - TP 1 applic HS [facility] Administration Cholecalciferol 1,000 unit 06/10/18 10:00 06/12/18 09:14 Vitamin D3 - PO 1,000 unit DAILY [facility] Administration Clopidogrel Bisulfate 75 mg 06/11/18 10:00 06/12/18 09:14 Plavix - PO 75 mg DAILY [facility] Administration Heparin Sodium (Porcine) 1,000 unit 06/09/18 14:18 06/12/18 09:15 Heparin - IVPUSH 1,000 unit PRN PRN Administration Heparin Heparin Sodium (Porcine) 5,000 unit 06/09/18 14:18 Heparin - IVPUSH PRN PRN Heparin Heparin Sodium (Porcine) 25, 500 mls @ 20 mls/hr 06/09/18 14:30 06/12/18 09: 15 000 unit/ Sodium Chloride IV 1,100 unit/hr TITR [facility] 22 mls/hr Titration Protocol 1,000 UNIT/HR Azithromycin 500 mg in 250 mls @ 250 mls/hr 06/10/18 10:00 06/12/18 09:14 Zithromax 500mg Ivpb (Pre-Docked) IVPB 250 mls/hr DAILY [facility] Administration Ceftriaxone Sodium 1 gm/ 50 mls @ 100 mls/hr 06/10/18 10:00 06/12/18 09:14 Dextrose IVPB 100 mls/hr DAILY [facility] Administration Protocol Diltiazem HCl 125 mg/ Dextrose 125 mls @ 5 mls/hr 06/12/18 07:15 06/12/18 07: 21 IVPB 5 mg/hr TITR [facility] 5 mls/hr Administration Protocol 5 MG/HR Methylprednisolone Sodium Succinate 40 mg 06/10/18 15:30 06/12/18 09:14 Solu-Medrol - IVPUSH 06/14/18 10:01 40 mg DAILY [facility] Administration Metoprolol Tartrate 5 mg 06/12/18 01:02 06/12/18 05:15 Lopressor Injection - IVPUSH 5 mg Q4H PRN Administration TACHYCARDIA Mupirocin 1 applic 06/09/18 22:00 06/12/18 09:15 Bactroban Ointment (For Decolonization) - NS 06/14/18 21:59 1 applic BID [facility]IO Administration ASSESSMENT/PLAN: 88 y/o M w/ PMHx dementia, legal blindness, HTN, unknown cardiac Hx (follows w/ stem lead former per son), prostate Ca, brought in by EMS for severe respiratory distress. CXR shows LLL consolidation. #Pulmonary -acute hypoxic respiratory failure 2/2 PNA -back on NIPPV -Duonebs standing/albuterol PRN -medrol 40 daily -BCx NGTD, Sputum Cx, urine antigens pending -CXR worsening -repeat ABG pending -jarvis inserted for output monitoring -Lasix as needed #ID -severe sepsis: initially T 102, HR 122, RR 26, stable BP, WBC 22.2, lactate 6.4 -LLL consolidation on CXR -ID consulted (Dr. Nelson following) -cont empiric azithromycin/ceftriaxone -leukocytosis persistent, on solumedrol, remains afebrile #cardiac -new tachycardia on cardizem drip, titrate as needed -troponemia generally resolving, mild elevation this AM likely d/t demand ischemia during tachy event -sinus tachy on repeat EKG -Plavix 75, ASA 81 -completed heparin gtt x 72 hours -cardiology on board -echo: moderate to severely reduced LV function, moderate MV thickening, moderate MR, moderate TR, E/A reversal c/w poor LV compliance -strict I&O, daily weights -fluids held -Lasix 40 IV given -repeat ABG pending -jarvis inserted for output monitoring -Lasix as needed #renal -JOSE: worsening -avoid nephrotoxic agents #GI -LFTs wnl #FEN -no IVF -monitor BMP -NPO while on NIPPV, may give oral medications #PPx -DVT: heparin subq -GI: not indicated at this time #Dispo -ICU -code status: DNR/DNI Visit type - Emergency Visit Emergency Visit: No - New Patient This patient is new to me today: No - Critical Care Critical Care patient: Yes Total Critical Care Time (in minutes): 40 Critical Care Statement: The care of this patient involved high complexity decision making to prevent further life threatening deterioration of the patient 's condition and/or to evaluate & treat vital organ system(s) failure or risk of failure.
--- NOTE | 2018-06-12 13:41 | PN ---
Progress Note, Physician Chief Complaint: Patient had episode of tachycrdia with respiratory distress , received IV amiodarone at the time of examination rate controlled - Current Medication List Current Medications: Active Medications Albuterol Sulfate (Ventolin 0.083% Nebulizer Soln -) 1 amp NEB Q4H PRN PRN Reason: SHORT OF BREATH/WHEEZING Last Admin: 06/11/18 00:34 Dose: 1 amp Albuterol/Ipratropium (Duoneb -) 1 amp NEB RQID [facility] Last Admin: 06/12/18 12:25 Dose: 1 amp Aspirin (Ecotrin -) 81 mg PO DAILY [facility] Last Admin: 06/12/18 09:14 Dose: 81 mg Atorvastatin Calcium (Lipitor -) 10 mg PO HS [facility] Last Admin: 06/11/18 21:42 Dose: 10 mg Chlorhexidine Gluconate (Hibiclens For Decolonization -) 1 applic TP HS [facility] Last Admin: 06/11/18 21:44 Dose: 1 applic Cholecalciferol (Vitamin D3 -) 1,000 unit PO DAILY [facility] Last Admin: 06/12/18 09:14 Dose: 1,000 unit Clopidogrel Bisulfate (Plavix -) 75 mg PO DAILY [facility] Last Admin: 06/12/18 09:14 Dose: 75 mg Heparin Sodium (Porcine) (Heparin -) 1,000 unit IVPUSH PRN PRN PRN Reason: Heparin Last Admin: 06/12/18 09:15 Dose: 1,000 unit Heparin Sodium (Porcine) (Heparin -) 5,000 unit IVPUSH PRN PRN PRN Reason: Heparin Heparin Sodium (Porcine) 25, (000 unit/ Sodium Chloride) 500 mls @ 20 mls/hr IV TITR [facility]; Protocol Last Titration: 06/12/18 09:15 Dose: 1,100 unit/hr, 22 mls/hr Azithromycin (Zithromax 500mg Ivpb (Pre-Docked)) 500 mg in 250 mls @ 250 mls/ hr IVPB DAILY [facility] Last Admin: 06/12/18 09:14 Dose: 250 mls/hr Ceftriaxone Sodium 1 gm/ (Dextrose) 50 mls @ 100 mls/hr IVPB DAILY [facility]; Protocol Last Admin: 06/12/18 09:14 Dose: 100 mls/hr Diltiazem HCl 125 mg/ Dextrose 125 mls @ 5 mls/hr IVPB TITR [facility]; Protocol Last Admin: 06/12/18 07:21 Dose: 5 mg/hr, 5 mls/hr Methylprednisolone Sodium Succinate (Solu-Medrol -) 40 mg IVPUSH DAILY [facility] Stop: 06/14/18 10:01 Last Admin: 06/12/18 09:14 Dose: 40 mg Metoprolol Tartrate (Lopressor Injection -) 5 mg IVPUSH Q4H PRN PRN Reason: TACHYCARDIA Last Admin: 06/12/18 05:15 Dose: 5 mg Mupirocin (Bactroban Ointment (For Decolonization) -) 1 applic NS BID [facility] Stop: 06/14/18 21:59 Last Admin: 06/12/18 09:15 Dose: 1 applic - Objective Vital Signs: Vital Signs Temperature 98.4 F 06/12/18 10:00 Pulse Rate 87 06/12/18 12:00 Respiratory Rate 26 H 06/12/18 12:00 Blood Pressure 123/87 06/12/18 12:00 O2 Sat by Pulse Oximetry (%) 97 06/12/18 11:09 Constitutional: Elderly man respiratory distress on BIPAP Cardiovascular: at present NSR, no m/g/r Respiratory: Wheezes and crepts Gastrointestinal: BS + mild distention Extremities: No edema no claf tendernes EDGE DRUMMER : Dementia at base line more lethargic Labs: CBC, BMP 06/12/18 05:30 06/12/18 05:30 INR, PTT INR 1.08 (0.83-1.09) 06/09/18 11:05 Problem List - Problems (1) Acute respiratory failure with hypoxia Assessment/Plan: Due to pneumonia on BIPAP and O2 inhalation, patient is DNR/DNI cont nebs will F /U Pulmonary recommondations. Code(s): J96.01 - ACUTE RESPIRATORY FAILURE WITH HYPOXIA (2) JOSE (acute kidney injury) Assessment/Plan: Due to Sepsis on IV Hydration no improvement will F/U BMP Daily Code(s): N17.9 - ACUTE KIDNEY FAILURE, UNSPECIFIED (3) Septic shock Code(s): A41.9 - SEPSIS, UNSPECIFIED ORGANISM; R65.21 - SEVERE SEPSIS WITH SEPTIC SHOCK (4) Pneumonia Assessment/Plan: Cultures are -ve on IV Ceftriaxone and Azithromycin will F/U ID and Pulmonary recommendations Code(s): J18.9 - PNEUMONIA, UNSPECIFIED ORGANISM Qualifiers: Pneumonia type: due to unspecified organism Laterality: left Lung location: lower lobe of lung Qualified Code(s): J18.1 - Lobar pneumonia, unspecified organism (5) Acute myocardial infarction Assessment/Plan: NSTEMI, evaluted by Cardiology consult on B Blockers and plavix Code(s): I21.9 - ACUTE MYOCARDIAL INFARCTION, UNSPECIFIED Qualifiers: Myocardial infarction type: unspecified Involved coronary artery: unspecified coronary artery Qualified Code(s): I21.9 - Acute myocardial infarction, unspecified (6) Acute metabolic encephalopathy Assessment/Plan: due to sepsis and base line Dementia Code(s): G93.41 - METABOLIC ENCEPHALOPATHY (7) Dementia Code(s): F03.90 - UNSPECIFIED DEMENTIA WITHOUT BEHAVIORAL DISTURBANCE (8) Tachycardia Assessment/Plan: Patient had episode of tachycardia with respiratory distress CXR shows Pulmonary congestion, patient recived IV Lasix and amiodarone, now on Diltizem and Heparin drip, will F/U Cardiology recommendations. Code(s): R00.0 - TACHYCARDIA, UNSPECIFIED
--- NOTE | 2018-06-12 14:35 | PN ---
Progress Note, Physician History of Present Illness: Seen and examined Events this AM discussed with ICU staff Episode of tachycardia to 160s, unclear rhythm Given IV Amio bolus Follow up ECG done after bolus shows Sinus tach Started on IV cardizem now with improved rate control - Current Medication List Current Medications: Active Medications Albuterol Sulfate (Ventolin 0.083% Nebulizer Soln -) 1 amp NEB Q4H PRN PRN Reason: SHORT OF BREATH/WHEEZING Last Admin: 06/11/18 00:34 Dose: 1 amp Albuterol/Ipratropium (Duoneb -) 1 amp NEB RQID [facility] Last Admin: 06/12/18 12:25 Dose: 1 amp Aspirin (Ecotrin -) 81 mg PO DAILY [facility] Last Admin: 06/12/18 09:14 Dose: 81 mg Atorvastatin Calcium (Lipitor -) 10 mg PO HS [facility] Last Admin: 06/11/18 21:42 Dose: 10 mg Chlorhexidine Gluconate (Hibiclens For Decolonization -) 1 applic TP HS [facility] Last Admin: 06/11/18 21:44 Dose: 1 applic Cholecalciferol (Vitamin D3 -) 1,000 unit PO DAILY [facility] Last Admin: 06/12/18 09:14 Dose: 1,000 unit Clopidogrel Bisulfate (Plavix -) 75 mg PO DAILY [facility] Last Admin: 06/12/18 09:14 Dose: 75 mg Heparin Sodium (Porcine) (Heparin -) 1,000 unit IVPUSH PRN PRN PRN Reason: Heparin Last Admin: 06/12/18 09:15 Dose: 1,000 unit Heparin Sodium (Porcine) (Heparin -) 5,000 unit IVPUSH PRN PRN PRN Reason: Heparin Heparin Sodium (Porcine) 25, (000 unit/ Sodium Chloride) 500 mls @ 20 mls/hr IV TITR [facility]; Protocol Last Titration: 06/12/18 09:15 Dose: 1,100 unit/hr, 22 mls/hr Azithromycin (Zithromax 500mg Ivpb (Pre-Docked)) 500 mg in 250 mls @ 250 mls/ hr IVPB DAILY [facility] Last Admin: 06/12/18 09:14 Dose: 250 mls/hr Ceftriaxone Sodium 1 gm/ (Dextrose) 50 mls @ 100 mls/hr IVPB DAILY [facility]; Protocol Last Admin: 06/12/18 09:14 Dose: 100 mls/hr Diltiazem HCl 125 mg/ Dextrose 125 mls @ 5 mls/hr IVPB TITR [facility]; Protocol Last Titration: 06/12/18 13:20 Dose: 10 mg/hr, 10 mls/hr Methylprednisolone Sodium Succinate (Solu-Medrol -) 40 mg IVPUSH DAILY [facility] Stop: 06/14/18 10:01 Last Admin: 06/12/18 09:14 Dose: 40 mg Metoprolol Tartrate (Lopressor Injection -) 5 mg IVPUSH Q4H PRN PRN Reason: TACHYCARDIA Last Admin: 06/12/18 05:15 Dose: 5 mg Mupirocin (Bactroban Ointment (For Decolonization) -) 1 applic NS BID [facility] Stop: 06/14/18 21:59 Last Admin: 06/12/18 09:15 Dose: 1 applic - Objective Vital Signs: Vital Signs Temperature 98.4 F 06/12/18 10:00 Pulse Rate 79 06/12/18 14:00 Respiratory Rate 22 H 06/12/18 14:00 Blood Pressure 124/90 06/12/18 14:00 O2 Sat by Pulse Oximetry (%) 100 06/12/18 13:44 Constitutional: Yes: Well Nourished, Other (on bipap) Eyes: Yes: WNL HENT: Yes: WNL Neck: Yes: WNL Cardiovascular: Yes: Regular Rate and Rhythm Respiratory: Yes: Regular, CTA Bilaterally Gastrointestinal: Yes: Normal Bowel Sounds Musculoskeletal: Yes: WNL Edema: LUE: Trace, RUE: Trace Labs: CBC, BMP 06/12/18 05:30 06/12/18 05:30 INR, PTT INR 1.08 (0.83-1.09) 06/09/18 11:05 Assessment/Plan a/p: 88 m hx dementia, htn, hld, prostate ca here with sob. nstemi: -elevated trop and ckmb c/w nstemi -ecg unremarkable -cont statin, asa, plavix. Has received IV UFH x 72 hours. OK to discontinue -echo shows newly reduced lvef and cxr today with congestion-->ivfs stopped, lasix 20 iv given -will start chf regimen with lisette/bb after acute infection issues resolve -cont tele -further ischemic eval based on clinical course-->now dnr/dni per family Tachycardia -OK with cardizem gtt for now -Will transition to PO after 24 hours sepsis, pna: -cont abx -icu care
[2018-06-12 15:47] LABS: ARTERIAL BLD GAS O2 SATURATION 90.7 % (90-98.9); ARTERIAL BLOOD GAS BASE EXCESS -3.9 meq/l (-2-2); ARTERIAL BLOOD GAS PCO2 36.1 mmHg (35-45); ARTERIAL BLOOD GAS PO2 66.4 mmHg (68-100); ARTERIAL BLOOD GAS pH 7.37 (7.35-7.45)
[2018-06-12] MEDS ORDERED: dilTIAZem HCL 50 MG/10 ML - 10 ML VIAL ONE ×2 (20:43→20:44)
[2018-06-12] MEDS ORDERED: dilTIAZem HCL 125 MG/25 ML - 25 ML VIAL ONE (20:44)
[2018-06-12] MEDS: ATORVASTATIN CA 10 MG TABLET (FP) PO SCH (21:14)
[2018-06-12] MEDS: HEPARIN NA (PORCINE) 5,000 UNITS/ML 1ML VIAL SQ SCH (21:14)
[2018-06-12] MEDS: CHLORHEXIDINE GLUCONATE 4% CLEANSER FOR DECOLONIZATION TP SCH (21:14)
[2018-06-13] MEDS: DILTIAZEM INJECTION 125 MG in DEXTROSE 5%-WATER - 100 ML IVPB SCH ×5 (02:19→20:30)
[2018-06-13] MEDS ORDERED: dilTIAZem HCL 50 MG/10 ML - 10 ML VIAL ONE ×2 (02:58→13:40)
[2018-06-13] MEDS ORDERED: dilTIAZem HCL 125 MG/25 ML - 25 ML VIAL ONE (02:59)
[2018-06-13 06:10] LABS: ALLENS TEST POSITIVE; ARTERIAL BLD GAS O2 SATURATION 98.4 % (90-98.9); ARTERIAL BLOOD GAS BASE EXCESS -0.9 meq/l (-2-2); ARTERIAL BLOOD GAS PCO2 35.9 mmHg (35-45); ARTERIAL BLOOD GAS pH 7.42 (7.35-7.45)
[2018-06-13] MEDS: HEPARIN NA (PORCINE) 5,000 UNITS/ML 1ML VIAL SQ SCH (06:37)
[2018-06-13 06:44] LABS: HEMATOCRIT 34.8 % (35.4-49); HEMOGLOBIN 11.6 GM/dL (11.7-16.9); LYMPH % 8.9 % (8-40); MCH 32.8 pg (25.7-33.7); MCHC 33.2 g/dl (32.0-35.9); MEAN CELL VOLUME 98.8 fl (80-96); MONO % 6.2 % (3.8-10.2); NEUT % 84.9 % (42.8-82.8); PLATELET COUNT 261 K/MM3 (134-434); RBC 3.53 M/mm3 (4.00-5.60); RDW 12.8 % (11.9-15.9); WHITE BLOOD COUNT 15.2 K/mm3 (4.0-10.0)
[2018-06-13 07:08] LABS: ANION GAP 9 MMOL/L (8-16); BLOOD UREA NITROGEN 79 mg/dL (7-18); CALCIUM 8.7 mg/dL (8.5-10.1); CHLORIDE 109 mmol/L (98-107); CO2 25 mmol/L (21-32); CREATININE 2.2 mg/dL (0.55-1.3); GLUCOSE,RANDOM 154 mg/dL (74-106); MAGNESIUM 2.5 mg/dL (1.8-2.4); PHOSPHOROUS 4.4 mg/dL (2.5-4.9); POTASSIUM 4.8 mmol/L (3.5-5.1); SODIUM 144 mmol/L (136-145)
[2018-06-13] MEDS: ALBUTEROL SO4 2.5/IPRATROPIUM 0.5 INH SOL 3 ML VIAL.NEB. NEB SCH ×4 (08:18→20:33)
[2018-06-13] MEDS ORDERED: DEXTROSE 5%-WATER - 50 ML IVPB ONE (08:35)
[2018-06-13] MEDS ORDERED: cefTRIAXone SODIUM 1 GM VIAL ONE (08:35)
[2018-06-13] MEDS: MUPIROCIN 2% TOPICAL OINTMENT FOR DECOLONIZATION NS SCH ×2 (09:06→21:34)
[2018-06-13] MEDS: ASPIRIN COATED 81 MG TABLET.EC PO SCH (09:06)
[2018-06-13] MEDS: CLOPIDOGREL BISULFATE 75 MG TABLET (FP) PO SCH (09:07)
[2018-06-13] MEDS: methylPREDNISolone NA SUCC 40 MG/1 ML VIAL IVPUSH SCH (09:07)
[2018-06-13] MEDS: CEFTRIAXONE 1 GM in DEXTROSE 5%-WATER - 50 ML IVPB SCH (09:07)
[2018-06-13] MEDS: AZITHROMYCIN IVPB 500 MG/250 ML BAG IVPB SCH (09:10)
[2018-06-13] MEDS: CHOLECALCIFEROL (VITAMIN D3) 1,000 UNIT TABLET (FP) PO SCH (09:10)
--- NOTE | 2018-06-13 10:30 | PN ---
Teaching Attending Note Name of Resident: Divina Steinberg ATTENDING PHYSICIAN STATEMENT I saw and evaluated the patient. I reviewed the resident's note and discussed the case with the resident. I agree with the resident's findings and plan as documented. SUBJECTIVE: Patient seen and examined in the ICU. Remains on NIPPV support 11/02, 80% FiO2. Again desaturated rapidly when placed on HF OT. Awake and responsive but more confused today. Rise in troponin yesterday likely due to demand ischemia. CXR: slightly improved congestive changes OBJECTIVE: Intake & Output 06/10/18 06/11/18 06/12/18 06/13/18 23:59 23:59 23:59 23:59 Intake Total 2252 1480 1260 223 Output Total 100 Balance 2152 1480 1260 223 Weight 212 lb 11.937 oz 205 lb 216 lb 0.848 oz 208 lb 4 oz Last Vital Signs Temp Pulse Resp BP Pulse Ox 98.2 F 92 H 26 H 135/84 98 06/13/18 06:00 06/13/18 09:06 06/13/18 08:00 06/13/18 09:06 06/13/18 08:31 Active Medications Albuterol Sulfate (Ventolin 0.083% Nebulizer Soln -) 1 amp NEB Q4H PRN PRN Reason: SHORT OF BREATH/WHEEZING Last Admin: 06/11/18 00:34 Dose: 1 amp Albuterol/Ipratropium (Duoneb -) 1 amp NEB RQID [facility] Last Admin: 06/13/18 08:18 Dose: 1 amp Aspirin (Ecotrin -) 81 mg PO DAILY [facility] Last Admin: 06/13/18 09:06 Dose: 81 mg Atorvastatin Calcium (Lipitor -) 10 mg PO HS [facility] Last Admin: 06/12/18 21:14 Dose: 10 mg Chlorhexidine Gluconate (Hibiclens For Decolonization -) 1 applic TP HS [facility] Last Admin: 06/12/18 21:14 Dose: 1 applic Cholecalciferol (Vitamin D3 -) 1,000 unit PO DAILY [facility] Last Admin: 06/13/18 09:10 Dose: 1,000 unit Clopidogrel Bisulfate (Plavix -) 75 mg PO DAILY [facility] Last Admin: 06/13/18 09:07 Dose: 75 mg Heparin Sodium (Porcine) (Heparin -) 5,000 unit SQ TID [facility] Last Admin: 06/13/18 06:37 Dose: 5,000 unit Azithromycin (Zithromax 500mg Ivpb (Pre-Docked)) 500 mg in 250 mls @ 250 mls/ hr IVPB DAILY [facility] Last Admin: 06/13/18 09:10 Dose: 250 mls/hr Ceftriaxone Sodium 1 gm/ (Dextrose) 50 mls @ 100 mls/hr IVPB DAILY [facility]; Protocol Last Admin: 06/13/18 09:07 Dose: 100 mls/hr Diltiazem HCl 125 mg/ Dextrose 125 mls @ 5 mls/hr IVPB TITR [facility]; Protocol Last Admin: 06/13/18 09:06 Dose: 10 mg/hr, 10 mls/hr Methylprednisolone Sodium Succinate (Solu-Medrol -) 40 mg IVPUSH DAILY [facility] Stop: 06/14/18 10:01 Last Admin: 06/13/18 09:07 Dose: 40 mg Metoprolol Tartrate (Lopressor Injection -) 5 mg IVPUSH Q4H PRN PRN Reason: TACHYCARDIA Last Admin: 06/12/18 05:15 Dose: 5 mg Mupirocin (Bactroban Ointment (For Decolonization) -) 1 applic NS BID [facility] Stop: 06/14/18 21:59 Last Admin: 06/13/18 09:06 Dose: 1 applic Gen: Awake and responsive but more confused today, Mildly tachypneic on NIPPV Heart: tachycardic, regular Lung: scattered rhonchi Abd: soft, nontender Ext: no edema Laboratory Results - last 24 hr 06/12/18 06/13/18 06/13/18 15:40 05:30 05:30 WBC 15.2 H RBC 3.53 L Hgb 11.6 L Hct 34.8 L MCV 98.8 H MCH 32.8 MCHC 33.2 RDW 12.8 Plt Count 261 MPV 10.0 Absolute Neuts (auto) 12.9 H Neutrophils % 84.9 H Lymphocytes % 8.9 D Monocytes % 6.2 Eosinophils % 0.0 D Basophils % 0.0 Nucleated RBC % 0 PTT (Actin FS) 25.7 Puncture Site Right radial Patient Temperature 29 ABG pH 7.37 ABG pCO2 at Pt Temp 36.1 ABG pO2 at Pt Temp 66.4 L D ABG HCO3 20.3 L ABG O2 Sat (Measured) 90.7 ABG O2 Content 13.6 L ABG Base Excess -3.9 L Antonio Test No Result Required. O2 Delivery Device Oxygen Flow Rate 87 Vent Mode Vent Rate PEEP Pressure Support Vent Sodium Potassium Chloride Carbon Dioxide Anion Gap BUN Creatinine Creat Clearance w eGFR Random Glucose Calcium Phosphorus Magnesium 06/13/18 06/13/18 05:30 06:00 WBC RBC Hgb Hct MCV MCH MCHC RDW Plt Count MPV Absolute Neuts (auto) Neutrophils % Lymphocytes % Monocytes % Eosinophils % Basophils % Nucleated RBC % PTT (Actin FS) Puncture Site Left radial Patient Temperature ABG pH 7.42 ABG pCO2 at Pt Temp 35.9 ABG pO2 at Pt Temp 119.0 H D ABG HCO3 22.7 ABG O2 Sat (Measured) 98.4 ABG O2 Content 15.3 ABG Base Excess -0.9 Antonio Test Positive O2 Delivery Device Bipap Oxygen Flow Rate 80% Vent Mode S/t Vent Rate 14 PEEP 0.0 Pressure Support Vent 14/6 Sodium 144 Potassium 4.8 Chloride 109 H Carbon Dioxide 25 Anion Gap 9 BUN 79 H Creatinine 2.2 H Creat Clearance w eGFR 28.32 Random Glucose 154 H Calcium 8.7 Phosphorus 4.4 Magnesium 2.5 H ASSESSMENT AND PLAN: Acute Hypoxic Respiratory Failure Pneumonia R/O Sepsis: Low clinical suspicion Lactic Acidosis Acute Kidney Injury +Troponins Acute NSTEMI Dementia - NIPPV support - Daily Medrol - IV ABX - Follow up final cultures - Monitor urine output, creatinine - Unable to take beta carole, ASA, statin due to respiratory distress - AC per Cardiology - O2 to keep Spo2 >90% - Aspiration precautions - DVT prophylaxis - Need to further clarify GOC with family - ICU monitoring for tenuous respiratory status Dr Babcock Critical care time spent in reviewing chart, evaluating patient and formulating plan 35 min
--- NOTE | 2018-06-13 10:57 | EKG ---
Test Reason : Blood Pressure : / mmHG Vent. Rate : 082 BPM Atrial Rate : 082 BPM P-R Int : 160 ms QRS Dur : 078 ms QT Int : 366 ms P-R-T Axes : 051 017 060 degrees QTc Int : 427 ms SINUS RHYTHM WITH PREMATURE SUPRAVENTRICULAR COMPLEXES AND WITH OCCASIONAL PREMATURE VENTRICULAR COMPLEXES LOW VOLTAGE QRS BORDERLINE ECG WHEN COMPARED WITH ECG OF 11-JUN-2018 18:01, PREMATURE VENTRICULAR COMPLEXES ARE NOW PRESENT PREMATURE SUPRAVENTRICULAR COMPLEXES ARE NOW PRESENT Confirmed by NESTOR WASSERMAN MD ([id number]) on 06/13/2018 10:56:45 AM Referred By: Nina FERRELL Confirmed By:NESTOR WASSERMAN MD
--- NOTE | 2018-06-13 11:00 | EKG ---
Test Reason : Blood Pressure : / mmHG Vent. Rate : 093 BPM Atrial Rate : 093 BPM P-R Int : 174 ms QRS Dur : 074 ms QT Int : 378 ms P-R-T Axes : 049 009 049 degrees QTc Int : 469 ms NORMAL SINUS RHYTHM LOW VOLTAGE QRS CANNOT RULE OUT ANTERIOR INFARCT , AGE UNDETERMINED POSSIBLE INFERIOR INFARCT , AGE UNDETERMINED ABNORMAL ECG WHEN COMPARED WITH ECG OF 11-JUN-2018 09:25, NO SIGNIFICANT CHANGE WAS FOUND Confirmed by NESTOR WASSERMAN MD ([id number]) on 06/13/2018 11:00:35 AM Referred By: Confirmed By:NESTOR WASSERMAN MD
--- NOTE | 2018-06-13 11:33 | PN ---
Progress Note, Physician History of Present Illness: Awake Slightly tachypneic on bipap Temps down afebrile WBC remains elevated 15K CXR increased markings L lung field - Current Medication List Current Medications: Active Medications Albuterol Sulfate (Ventolin 0.083% Nebulizer Soln -) 1 amp NEB Q4H PRN PRN Reason: SHORT OF BREATH/WHEEZING Last Admin: 06/11/18 00:34 Dose: 1 amp Albuterol/Ipratropium (Duoneb -) 1 amp NEB RQID [facility] Last Admin: 06/13/18 08:18 Dose: 1 amp Aspirin (Ecotrin -) 81 mg PO DAILY [facility] Last Admin: 06/13/18 09:06 Dose: 81 mg Atorvastatin Calcium (Lipitor -) 10 mg PO HS [facility] Last Admin: 06/12/18 21:14 Dose: 10 mg Chlorhexidine Gluconate (Hibiclens For Decolonization -) 1 applic TP HS [facility] Last Admin: 06/12/18 21:14 Dose: 1 applic Cholecalciferol (Vitamin D3 -) 1,000 unit PO DAILY [facility] Last Admin: 06/13/18 09:10 Dose: 1,000 unit Clopidogrel Bisulfate (Plavix -) 75 mg PO DAILY [facility] Last Admin: 06/13/18 09:07 Dose: 75 mg Heparin Sodium (Porcine) (Heparin -) 5,000 unit SQ TID [facility] Last Admin: 06/13/18 06:37 Dose: 5,000 unit Azithromycin (Zithromax 500mg Ivpb (Pre-Docked)) 500 mg in 250 mls @ 250 mls/ hr IVPB DAILY [facility] Last Admin: 06/13/18 09:10 Dose: 250 mls/hr Ceftriaxone Sodium 1 gm/ (Dextrose) 50 mls @ 100 mls/hr IVPB DAILY [facility]; Protocol Last Admin: 06/13/18 09:07 Dose: 100 mls/hr Diltiazem HCl 125 mg/ Dextrose 125 mls @ 5 mls/hr IVPB TITR [facility]; Protocol Last Admin: 06/13/18 09:06 Dose: 10 mg/hr, 10 mls/hr Methylprednisolone Sodium Succinate (Solu-Medrol -) 40 mg IVPUSH DAILY [facility] Stop: 06/14/18 10:01 Last Admin: 06/13/18 09:07 Dose: 40 mg Metoprolol Tartrate (Lopressor Injection -) 5 mg IVPUSH Q4H PRN PRN Reason: TACHYCARDIA Last Admin: 06/12/18 05:15 Dose: 5 mg Mupirocin (Bactroban Ointment (For Decolonization) -) 1 applic NS BID [facility] Stop: 06/14/18 21:59 Last Admin: 06/13/18 09:06 Dose: 1 applic - Objective Vital Signs: Vital Signs Temperature 98.5 F 06/13/18 10:00 Pulse Rate 82 06/13/18 10:00 Respiratory Rate 24 H 06/13/18 10:00 Blood Pressure 137/89 06/13/18 10:00 O2 Sat by Pulse Oximetry (%) 97 06/13/18 10:35 Constitutional: Yes: No Distress, Obese Eyes: Yes: Conjunctiva Clear Cardiovascular: Yes: Regular Rate and Rhythm, S1, S2 Respiratory: Yes: Diminished Gastrointestinal: Yes: Normal Bowel Sounds, Soft. No: Tenderness Edema: Yes Labs: CBC, BMP 06/13/18 05:30 06/13/18 05:30 INR, PTT INR 1.08 (0.83-1.09) 06/09/18 11:05 Assessment/Plan Hypoxemic resp failure LLL pneumonia Sepsis lactic acidosis NSTEMI Azotemia OBS Continue zithromax/ ceftriaxone Bipap
[2018-06-13] MEDS ORDERED: HEPARIN NA (PORCINE) 5,000 UNITS/ML 1ML VIAL IVPUSH PRN ×2 (12:03)
--- NOTE | 2018-06-13 12:10 | PN ---
Physical Exam: SUBJECTIVE: Patient seen and examined in ICU, complaining of pain but unable to specify. He is on Bi Pap. OBJECTIVE: Vital Signs Period Temp Pulse Resp BP Sys/Boyer Pulse Ox Last 24 Hr 98 F-98.5 F 73-158 20-28 118-139/66-93 92-100 GENERAL: Awake, somnolent HEAD: NC/AT EYES: PERRLA, EOMI EARS, NOSE, THROAT: Moist mucous membranes, on Bi Pap. NECK: supple, trachea midline. LUNGS: Coarse breath sounds, rhonchi bilaterally HEART: irregular rate and rhytm, no M/R/G ABDOMEN: obese, non tender, non distended EXTREMITIES: 2+ pulses, warm, well-perfused, 1+ edema b/l in lower extremities NEUROLOGICAL: Somnolent, no facial asymmetry, non focal Laboratory Results - last 24 hr 06/12/18 06/13/18 06/13/18 15:40 05:30 05:30 WBC 15.2 H RBC 3.53 L Hgb 11.6 L Hct 34.8 L MCV 98.8 H MCH 32.8 MCHC 33.2 RDW 12.8 Plt Count 261 MPV 10.0 Absolute Neuts (auto) 12.9 H Neutrophils % 84.9 H Lymphocytes % 8.9 D Monocytes % 6.2 Eosinophils % 0.0 D Basophils % 0.0 Nucleated RBC % 0 PTT (Actin FS) 25.7 Puncture Site Right radial Patient Temperature 29 ABG pH 7.37 ABG pCO2 at Pt Temp 36.1 ABG pO2 at Pt Temp 66.4 L D ABG HCO3 20.3 L ABG O2 Sat (Measured) 90.7 ABG O2 Content 13.6 L ABG Base Excess -3.9 L Antonio Test No Result Required. O2 Delivery Device Oxygen Flow Rate 87 Vent Mode Vent Rate PEEP Pressure Support Vent Sodium Potassium Chloride Carbon Dioxide Anion Gap BUN Creatinine Creat Clearance w eGFR Random Glucose Calcium Phosphorus Magnesium 06/13/18 06/13/18 05:30 06:00 WBC RBC Hgb Hct MCV MCH MCHC RDW Plt Count MPV Absolute Neuts (auto) Neutrophils % Lymphocytes % Monocytes % Eosinophils % Basophils % Nucleated RBC % PTT (Actin FS) Puncture Site Left radial Patient Temperature ABG pH 7.42 ABG pCO2 at Pt Temp 35.9 ABG pO2 at Pt Temp 119.0 H D ABG HCO3 22.7 ABG O2 Sat (Measured) 98.4 ABG O2 Content 15.3 ABG Base Excess -0.9 Antonio Test Positive O2 Delivery Device Bipap Oxygen Flow Rate 80% Vent Mode S/t Vent Rate 14 PEEP 0.0 Pressure Support Vent 14/6 Sodium 144 Potassium 4.8 Chloride 109 H Carbon Dioxide 25 Anion Gap 9 BUN 79 H Creatinine 2.2 H Creat Clearance w eGFR 28.32 Random Glucose 154 H Calcium 8.7 Phosphorus 4.4 Magnesium 2.5 H Active Medications Generic Name Dose Route Start Last Admin Trade Name Freq PRN Reason Stop Dose Admin Albuterol Sulfate 1 amp 06/09/18 13:19 06/11/18 00:34 Ventolin 0.083% Nebulizer Soln - NEB 1 amp Q4H PRN Administration SHORT OF BREATH/WHEEZING Albuterol/Ipratropium 1 amp 06/09/18 16:00 06/13/18 11:52 Duoneb - NEB 1 amp RQID [facility] Administration Aspirin 81 mg 06/11/18 10:00 06/13/18 09:06 Ecotrin - PO 81 mg DAILY [facility] Administration Atorvastatin Calcium 10 mg 06/09/18 22:00 06/12/18 21:14 Lipitor - PO 10 mg HS [facility] Administration Chlorhexidine Gluconate 1 applic 06/09/18 22:00 06/12/18 21:14 Hibiclens For Decolonization - TP 1 applic HS [facility] Administration Cholecalciferol 1,000 unit 06/10/18 10:00 06/13/18 09:10 Vitamin D3 - PO 1,000 unit DAILY [facility] Administration Clopidogrel Bisulfate 75 mg 06/11/18 10:00 06/13/18 09:07 Plavix - PO 75 mg DAILY [facility] Administration Heparin Sodium (Porcine) 1,000 unit 06/13/18 12:03 Heparin - IVPUSH PRN PRN Heparin Heparin Sodium (Porcine) 5,000 unit 06/13/18 12:03 Heparin - IVPUSH PRN PRN Heparin Azithromycin 500 mg in 250 mls @ 250 mls/hr 06/10/18 10:00 06/13/18 09:10 Zithromax 500mg Ivpb (Pre-Docked) IVPB 250 mls/hr DAILY [facility] Administration Ceftriaxone Sodium 1 gm/ 50 mls @ 100 mls/hr 06/10/18 10:00 06/13/18 09:07 Dextrose IVPB 100 mls/hr DAILY [facility] Administration Protocol Diltiazem HCl 125 mg/ Dextrose 125 mls @ 5 mls/hr 06/12/18 07:15 06/13/18 09: 06 IVPB 10 mg/hr TITR [facility] 10 mls/hr Administration Protocol 5 MG/HR Heparin Sodium (Porcine) 25, 500 mls @ 20 mls/hr 06/13/18 12:15 000 unit/ Sodium Chloride IV TITR [facility] Protocol 1,000 UNIT/HR Methylprednisolone Sodium Succinate 40 mg 06/10/18 15:30 06/13/18 09:07 Solu-Medrol - IVPUSH 06/14/18 10:01 40 mg DAILY [facility] Administration Metoprolol Tartrate 5 mg 06/12/18 01:02 06/12/18 05:15 Lopressor Injection - IVPUSH 5 mg Q4H PRN Administration TACHYCARDIA Mupirocin 1 applic 06/09/18 22:00 06/13/18 09:06 Bactroban Ointment (For Decolonization) - NS 06/14/18 21:59 1 applic BID [facility] Administration ASSESSMENT/PLAN: 88 y/o M w/ PMHx dementia, legal blindness, HTN, unknown cardiac Hx (follows w/ renal case manager per son), prostate Ca, admitted to ICU for acute respiratory failure, PNA r/o sepsis and acute NSTEMI. acute hypoxic respiratory failure pneumonia r/o severe sepsis troponinemia acute NSTEMI HTN prostate Ca JOSE dementia Plan: -on NIPPV RR 21, Fio2 80% -Duonebs standing/albuterol PRN -continue medrol 40 daily -BCx negative, Influenza negative -LLL consolidation on CXR, improved today -ID consulted, will continue empiric Ceftriaxone and AZT -consulted cardiology; on cardizem drip, restarted heparin drip today for A.Fib ( not able to take PO medications due to lethargy and Bi Pap) also given lasix 20 mg IV -morphine 2 mg ONCE ordered for pain -troponemia likely due to demand ischemia -strict I&O, daily weights Dispo -ICU monitoring -code status: DNR/DNI. Discussed with family his status today. Problem List - Problems (1) JOSE (acute kidney injury) Code(s): N17.9 - ACUTE KIDNEY FAILURE, UNSPECIFIED (2) Acute myocardial infarction Code(s): I21.9 - ACUTE MYOCARDIAL INFARCTION, UNSPECIFIED Qualifiers: Myocardial infarction type: unspecified Involved coronary artery: unspecified coronary artery Qualified Code(s): I21.9 - Acute myocardial infarction, unspecified (3) Acute respiratory failure with hypoxia Code(s): J96.01 - ACUTE RESPIRATORY FAILURE WITH HYPOXIA (4) Dementia Code(s): F03.90 - UNSPECIFIED DEMENTIA WITHOUT BEHAVIORAL DISTURBANCE Visit type - Emergency Visit Emergency Visit: Yes ED Registration Date: 06/09/18 Care time: The patient presented to the Emergency Department on the above date and was hospitalized for further evaluation of their emergent condition. - New Patient This patient is new to me today: Yes Date on this admission: 06/13/18 - Critical Care Critical Care patient: Yes Total Critical Care Time (in minutes): 40 Critical Care Statement: The care of this patient involved high complexity decision making to prevent further life threatening deterioration of the patient 's condition and/or to evaluate & treat vital organ system(s) failure or risk of failure. - Discharge Referral Referred to [facility] No
--- NOTE | 2018-06-13 12:35 | PN ---
Progress Note, Physician History of Present Illness: No events overnight Very labile respiratory condition, unable to take off BIPAP without desaturation. Limiting PO meds Tele: Parox Afib overnight - Current Medication List Current Medications: Active Medications Albuterol Sulfate (Ventolin 0.083% Nebulizer Soln -) 1 amp NEB Q4H PRN PRN Reason: SHORT OF BREATH/WHEEZING Last Admin: 06/11/18 00:34 Dose: 1 amp Albuterol/Ipratropium (Duoneb -) 1 amp NEB RQID [facility] Last Admin: 06/13/18 11:52 Dose: 1 amp Aspirin (Ecotrin -) 81 mg PO DAILY [facility] Last Admin: 06/13/18 09:06 Dose: 81 mg Atorvastatin Calcium (Lipitor -) 10 mg PO HS [facility] Last Admin: 06/12/18 21:14 Dose: 10 mg Chlorhexidine Gluconate (Hibiclens For Decolonization -) 1 applic TP HS [facility] Last Admin: 06/12/18 21:14 Dose: 1 applic Cholecalciferol (Vitamin D3 -) 1,000 unit PO DAILY [facility] Last Admin: 06/13/18 09:10 Dose: 1,000 unit Clopidogrel Bisulfate (Plavix -) 75 mg PO DAILY [facility] Last Admin: 06/13/18 09:07 Dose: 75 mg Heparin Sodium (Porcine) (Heparin -) 1,000 unit IVPUSH PRN PRN PRN Reason: Heparin Heparin Sodium (Porcine) (Heparin -) 5,000 unit IVPUSH PRN PRN PRN Reason: Heparin Azithromycin (Zithromax 500mg Ivpb (Pre-Docked)) 500 mg in 250 mls @ 250 mls/ hr IVPB DAILY [facility] Last Admin: 06/13/18 09:10 Dose: 250 mls/hr Ceftriaxone Sodium 1 gm/ (Dextrose) 50 mls @ 100 mls/hr IVPB DAILY [facility]; Protocol Last Admin: 06/13/18 09:07 Dose: 100 mls/hr Diltiazem HCl 125 mg/ Dextrose 125 mls @ 5 mls/hr IVPB TITR [facility]; Protocol Last Admin: 06/13/18 09:06 Dose: 10 mg/hr, 10 mls/hr Heparin Sodium (Porcine) 25, (000 unit/ Sodium Chloride) 500 mls @ 20 mls/hr IV TITR [facility]; Protocol Methylprednisolone Sodium Succinate (Solu-Medrol -) 40 mg IVPUSH DAILY [facility] Stop: 06/14/18 10:01 Last Admin: 06/13/18 09:07 Dose: 40 mg Metoprolol Tartrate (Lopressor Injection -) 5 mg IVPUSH Q4H PRN PRN Reason: TACHYCARDIA Last Admin: 06/12/18 05:15 Dose: 5 mg Mupirocin (Bactroban Ointment (For Decolonization) -) 1 applic NS BID [facility] Stop: 06/14/18 21:59 Last Admin: 06/13/18 09:06 Dose: 1 applic - Objective Vital Signs: Vital Signs Temperature 98.5 F 06/13/18 10:00 Pulse Rate 80 06/13/18 12:00 Respiratory Rate 28 H 06/13/18 12:00 Blood Pressure 130/85 06/13/18 12:00 O2 Sat by Pulse Oximetry (%) 97 06/13/18 10:35 Constitutional: Yes: No Distress (On BiPAP) Eyes: Yes: WNL HENT: Yes: WNL Neck: Yes: WNL Cardiovascular: Yes: Regular Rate and Rhythm Respiratory: Yes: Dullness Gastrointestinal: Yes: Normal Bowel Sounds Extremities: Yes: WNL Labs: CBC, BMP 06/13/18 05:30 06/13/18 05:30 INR, PTT INR 1.08 (0.83-1.09) 06/09/18 11:05 Assessment/Plan a/p: 88 m hx dementia, htn, hld, prostate ca here with sob. nstemi: -elevated trop and ckmb c/w nstemi -ecg unremarkable -cont statin, asa, plavix. Has received IV UFH x 72 hours. -echo shows newly reduced lvef and cxr today with congestion-->ivfs stopped, lasix 20 iv given -will start chf regimen with lisette/bb after acute infection issues resolve -cont tele -further ischemic eval based on clinical course-->now dnr/dni per family Tachycardia -PAF on tele -Rate controlled on IV cardizem gtt. Unable to switch to PO given tenuous respiratory status. -Will transition to PO once stable respiratory status -CXR with venous congestion -Would given Lasix 20mg IV -Resume IV Heparin gtt for thromboembolic prophylaxis. sepsis, pna: -cont abx -icu care
[2018-06-13] MEDS: HEPARIN - 25,000 UNIT in SODIUM CHLORIDE 495 ML IV SCH (13:52)
[2018-06-13] MEDS ORDERED: FUROSEMIDE 40 MG/4 ML INJECTABLE VIAL IVPUSH ONE (14:47)
[2018-06-13] MEDS ORDERED: MORPHINE SULFATE 2 MG/ML VIAL IVPUSH ONE (14:52)
--- NOTE | 2018-06-13 15:07 | PN ---
Progress Note, Physician Chief Complaint: Remained almost at base line , episode of PAfib over night now rate controlled, O2 sat fluctuates - Current Medication List Current Medications: Active Medications Albuterol Sulfate (Ventolin 0.083% Nebulizer Soln -) 1 amp NEB Q4H PRN PRN Reason: SHORT OF BREATH/WHEEZING Last Admin: 06/11/18 00:34 Dose: 1 amp Albuterol/Ipratropium (Duoneb -) 1 amp NEB RQID [facility] Last Admin: 06/13/18 11:52 Dose: 1 amp Aspirin (Ecotrin -) 81 mg PO DAILY [facility] Last Admin: 06/13/18 09:06 Dose: 81 mg Atorvastatin Calcium (Lipitor -) 10 mg PO HS [facility] Last Admin: 06/12/18 21:14 Dose: 10 mg Chlorhexidine Gluconate (Hibiclens For Decolonization -) 1 applic TP HS [facility] Last Admin: 06/12/18 21:14 Dose: 1 applic Cholecalciferol (Vitamin D3 -) 1,000 unit PO DAILY [facility] Last Admin: 06/13/18 09:10 Dose: 1,000 unit Clopidogrel Bisulfate (Plavix -) 75 mg PO DAILY [facility] Last Admin: 06/13/18 09:07 Dose: 75 mg Furosemide (Lasix Injection -) 20 mg IVPUSH ONCE ONE Stop: 06/14/18 14:48 Heparin Sodium (Porcine) (Heparin -) 1,000 unit IVPUSH PRN PRN PRN Reason: Heparin Heparin Sodium (Porcine) (Heparin -) 5,000 unit IVPUSH PRN PRN PRN Reason: Heparin Azithromycin (Zithromax 500mg Ivpb (Pre-Docked)) 500 mg in 250 mls @ 250 mls/ hr IVPB DAILY [facility] Last Admin: 06/13/18 09:10 Dose: 250 mls/hr Ceftriaxone Sodium 1 gm/ (Dextrose) 50 mls @ 100 mls/hr IVPB DAILY [facility]; Protocol Last Admin: 06/13/18 09:07 Dose: 100 mls/hr Diltiazem HCl 125 mg/ Dextrose 125 mls @ 5 mls/hr IVPB TITR [facility]; Protocol Last Admin: 06/13/18 09:06 Dose: 10 mg/hr, 10 mls/hr Heparin Sodium (Porcine) 25, (000 unit/ Sodium Chloride) 500 mls @ 20 mls/hr IV TITR [facility]; Protocol Last Admin: 06/13/18 13:52 Dose: 1,000 unit/hr, 20 mls/hr Methylprednisolone Sodium Succinate (Solu-Medrol -) 40 mg IVPUSH DAILY [facility] Stop: 06/14/18 10:01 Last Admin: 06/13/18 09:07 Dose: 40 mg Metoprolol Tartrate (Lopressor Injection -) 5 mg IVPUSH Q4H PRN PRN Reason: TACHYCARDIA Last Admin: 06/12/18 05:15 Dose: 5 mg Morphine Sulfate (Morphine Injection -) 2 mg IVPUSH ONCE ONE Stop: 06/13/18 14:53 Mupirocin (Bactroban Ointment (For Decolonization) -) 1 applic NS BID [facility] Stop: 06/14/18 21:59 Last Admin: 06/13/18 09:06 Dose: 1 applic - Objective Vital Signs: Vital Signs Temperature 99 F 06/13/18 14:51 Pulse Rate 82 06/13/18 14:00 Respiratory Rate 26 H 06/13/18 14:00 Blood Pressure 148/93 06/13/18 14:00 O2 Sat by Pulse Oximetry (%) 96 06/13/18 14:52 Constitutional: Elderly man respiratory distress on BIPAP, fluctuating O2 sat Cardiovascular: At present NSR no acute St T chnages Respiratory: Wheezes and crepts Gastrointestinal: No distention, BS + Extremities: No edema no claf 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 Code(s): J96.01 - ACUTE RESPIRATORY FAILURE WITH HYPOXIA (2) JOSE (acute kidney injury) Assessment/Plan: Due to Sepsis on IV Hydration no improvement will F/U BMP Daily Code(s): N17.9 - ACUTE KIDNEY FAILURE, UNSPECIFIED (3) Septic shock Code(s): A41.9 - SEPSIS, UNSPECIFIED ORGANISM; R65.21 - SEVERE SEPSIS WITH SEPTIC SHOCK (4) Pneumonia Assessment/Plan: Cultures are -ve on IV Ceftriaxone and Azithromycin will F/U ID and Pulmonary recommendations Code(s): J18.9 - PNEUMONIA, UNSPECIFIED ORGANISM Qualifiers: Pneumonia type: due to unspecified organism Laterality: left Lung location: lower lobe of lung Qualified Code(s): J18.1 - Lobar pneumonia, unspecified organism (5) Acute myocardial infarction Assessment/Plan: NSTEMI, evaluated by Cardiology consult on B Blockers and plavix Code(s): I21.9 - ACUTE MYOCARDIAL INFARCTION, UNSPECIFIED Qualifiers: Myocardial infarction type: unspecified Involved coronary artery: unspecified coronary artery Qualified Code(s): I21.9 - Acute myocardial infarction, unspecified (6) Acute metabolic encephalopathy Assessment/Plan: due to sepsis and base line Dementia Code(s): G93.41 - METABOLIC ENCEPHALOPATHY (7) Dementia Assessment/Plan: No active issue Code(s): F03.90 - UNSPECIFIED DEMENTIA WITHOUT BEHAVIORAL DISTURBANCE (8) Tachycardia Assessment/Plan: On Thursday patient had episode of tachycardia with respiratory distress CXR shows Pulmonary congestion, patient recived IV Lasix and amiodarone, now on Diltizem and Heparin drip, will F/U Cardiology recommendations. Code(s): R00.0 - TACHYCARDIA, UNSPECIFIED
[2018-06-13] MEDS: METOPROLOL TARTRATE 5 MG/5 ML VIAL IVPUSH PRN (20:37)
[2018-06-13] MEDS: ATORVASTATIN CA 10 MG TABLET (FP) PO SCH (21:34)
[2018-06-13] MEDS: CHLORHEXIDINE GLUCONATE 4% CLEANSER FOR DECOLONIZATION TP SCH (21:34)
[2018-06-13] MEDS ORDERED: METOPROLOL TARTRATE 5 MG/5 ML VIAL IVPUSH ONE (21:44)
[2018-06-14 06:37] LABS: BASO % 0.2 % (0-2.0); EOS % 0.5 % (0-4.5); HEMATOCRIT 33.9 % (35.4-49); HEMOGLOBIN 10.8 GM/dL (11.7-16.9); LYMPH % 13.7 % (8-40); MCH 31.8 pg (25.7-33.7); MCHC 31.7 g/dl (32.0-35.9); MEAN CELL VOLUME 100.4 fl (80-96); MEAN PLT VOLUME 10.3 fl (7.5-11.1); MONO % 7.4 % (3.8-10.2); NEUT % 78.2 % (42.8-82.8); PLATELET COUNT 255 K/MM3 (134-434); RBC 3.38 M/mm3 (4.00-5.60); RDW 12.8 % (11.9-15.9); WHITE BLOOD COUNT 19.9 K/mm3 (4.0-10.0)
[2018-06-14] MEDS: ALBUTEROL SO4 2.5/IPRATROPIUM 0.5 INH SOL 3 ML VIAL.NEB. NEB SCH ×4 (08:46→21:00)
[2018-06-14 09:41] LABS: ALBUMIN 2.7 g/dl (3.4-5.0)
--- NOTE | 2018-06-14 10:13 | PN ---
Progress Note, Physician - Current Medication List Current Medications: Active Medications Albuterol Sulfate (Ventolin 0.083% Nebulizer Soln -) 1 amp NEB Q4H PRN PRN Reason: SHORT OF BREATH/WHEEZING Last Admin: 06/11/18 00:34 Dose: 1 amp Albuterol/Ipratropium (Duoneb -) 1 amp NEB RQID [facility] Last Admin: 06/14/18 08:46 Dose: 1 amp Aspirin (Ecotrin -) 81 mg PO DAILY [facility] Last Admin: 06/13/18 09:06 Dose: 81 mg Atorvastatin Calcium (Lipitor -) 10 mg PO HS [facility] Last Admin: 06/13/18 21:34 Dose: 10 mg Chlorhexidine Gluconate (Hibiclens For Decolonization -) 1 applic TP HS [facility] Last Admin: 06/13/18 21:34 Dose: 1 applic Cholecalciferol (Vitamin D3 -) 1,000 unit PO DAILY [facility] Last Admin: 06/13/18 09:10 Dose: 1,000 unit Clopidogrel Bisulfate (Plavix -) 75 mg PO DAILY [facility] Last Admin: 06/13/18 09:07 Dose: 75 mg Heparin Sodium (Porcine) (Heparin -) 1,000 unit IVPUSH PRN PRN PRN Reason: Heparin Last Admin: 06/13/18 22:15 Dose: 1,000 unit Heparin Sodium (Porcine) (Heparin -) 5,000 unit IVPUSH PRN PRN PRN Reason: Heparin Azithromycin (Zithromax 500mg Ivpb (Pre-Docked)) 500 mg in 250 mls @ 250 mls/ hr IVPB DAILY [facility] Last Admin: 06/13/18 09:10 Dose: 250 mls/hr Ceftriaxone Sodium 1 gm/ (Dextrose) 50 mls @ 100 mls/hr IVPB DAILY [facility]; Protocol Last Admin: 06/13/18 09:07 Dose: 100 mls/hr Heparin Sodium (Porcine) 25, (000 unit/ Sodium Chloride) 500 mls @ 20 mls/hr IV TITR [facility]; Protocol Last Titration: 06/13/18 22:19 Dose: 1,100 unit/hr, 22 mls/hr Metoprolol Tartrate (Lopressor Injection -) 5 mg IVPUSH Q4H PRN PRN Reason: TACHYCARDIA Last Admin: 06/13/18 20:37 Dose: 5 mg Mupirocin (Bactroban Ointment (For Decolonization) -) 1 applic NS BID [facility] Stop: 06/14/18 21:59 Last Admin: 06/13/18 21:34 Dose: 1 applic - Objective Vital Signs: Vital Signs Temperature 98.6 F 06/14/18 06:00 Pulse Rate 90 06/14/18 06:00 Respiratory Rate 18 06/14/18 06:00 Blood Pressure 131/79 06/14/18 06:00 O2 Sat by Pulse Oximetry (%) 100 06/14/18 02:12 Labs: CBC, BMP 06/14/18 05:30 06/14/18 05:30 INR, PTT INR 1.08 (0.83-1.09) 06/09/18 11:05 Assessment/Plan ecg: sr, nl intervals, no ischemic changes echo: 12/2015: nl lv/rv, no sig valve path, nl rvsp echo 05/2018: tds; mod-sev dec lvef, rv tds, mod mr, mild-mod tr, nl rvsp mibi 03/2011: no ischemia/scar a/p: 88 m hx dementia, htn, hld, prostate ca here with sob. nstemi: -elevated trop and ckmb c/w nstemi -ecg unremarkable -cont statin, asa, plavix. -cxr 06/13 with congestion-->ivfs stopped, lasix 20 iv given -will start PO metoprolol (also for HR controla) and ZEV once acute infection resolves and pt can take PO -cont tele -defer ischemic eval for now: pt with dementia (? severity), prostate Ca (? stage), presently DNR/DNI acute hypoxic resp failure, PNA -abx, icu care per crit care/pulm parox Afib -PAF on tele here -was receiving IV dilatizem for HR control. low EF, CXR congested--no CCB -cont prn iv metoprolol as doing -Will transition to PO once stable respiratory status -cont IV Heparin gtt for thromboembolic prophylaxis renal failure: -? baseline creatinine (no values here since 2015, pt with prostate cancer) -initial creat 2.1 here, renal fxn fairly stable overall trend -infection mgmt, cardiac optimization as doing -defer renal consultation question to crit care/hospitalist
--- NOTE | 2018-06-14 10:23 | PN ---
Progress Note, Physician Chief Complaint: Unable to obtain. Patient currently with AMS and on bipap. - Current Medication List Current Medications: Active Medications Albuterol Sulfate (Ventolin 0.083% Nebulizer Soln -) 1 amp NEB Q4H PRN PRN Reason: SHORT OF BREATH/WHEEZING Last Admin: 06/11/18 00:34 Dose: 1 amp Albuterol/Ipratropium (Duoneb -) 1 amp NEB RQID [facility] Last Admin: 06/14/18 08:46 Dose: 1 amp Aspirin (Ecotrin -) 81 mg PO DAILY [facility] Last Admin: 06/13/18 09:06 Dose: 81 mg Atorvastatin Calcium (Lipitor -) 10 mg PO HS [facility] Last Admin: 06/13/18 21:34 Dose: 10 mg Chlorhexidine Gluconate (Hibiclens For Decolonization -) 1 applic TP HS [facility] Last Admin: 06/13/18 21:34 Dose: 1 applic Cholecalciferol (Vitamin D3 -) 1,000 unit PO DAILY [facility] Last Admin: 06/13/18 09:10 Dose: 1,000 unit Clopidogrel Bisulfate (Plavix -) 75 mg PO DAILY [facility] Last Admin: 06/13/18 09:07 Dose: 75 mg Heparin Sodium (Porcine) (Heparin -) 1,000 unit IVPUSH PRN PRN PRN Reason: Heparin Last Admin: 06/13/18 22:15 Dose: 1,000 unit Heparin Sodium (Porcine) (Heparin -) 5,000 unit IVPUSH PRN PRN PRN Reason: Heparin Azithromycin (Zithromax 500mg Ivpb (Pre-Docked)) 500 mg in 250 mls @ 250 mls/ hr IVPB DAILY [facility] Last Admin: 06/13/18 09:10 Dose: 250 mls/hr Ceftriaxone Sodium 1 gm/ (Dextrose) 50 mls @ 100 mls/hr IVPB DAILY [facility]; Protocol Last Admin: 06/13/18 09:07 Dose: 100 mls/hr Heparin Sodium (Porcine) 25, (000 unit/ Sodium Chloride) 500 mls @ 20 mls/hr IV TITR [facility]; Protocol Last Titration: 06/13/18 22:19 Dose: 1,100 unit/hr, 22 mls/hr Metoprolol Tartrate (Lopressor Injection -) 5 mg IVPUSH Q4H PRN PRN Reason: TACHYCARDIA Last Admin: 06/13/18 20:37 Dose: 5 mg Mupirocin (Bactroban Ointment (For Decolonization) -) 1 applic NS BID [facility] Stop: 06/14/18 21:59 Last Admin: 06/13/18 21:34 Dose: 1 applic - Objective Vital Signs: Vital Signs Temperature 37.0 C 06/14/18 06:00 Pulse Rate 90 06/14/18 06:00 Respiratory Rate 18 06/14/18 06:00 Blood Pressure 131/79 06/14/18 06:00 O2 Sat by Pulse Oximetry (%) 100 06/14/18 02:12 Constitutional: Yes: Obese, Other (obtunded) Cardiovascular: Yes: Tachycardia, Pulse Irregular. No: Gallop, Murmur, Rub Respiratory: Yes: On BiPap, Rhonchi, Tachypnea. No: Regular, CTA Bilaterally, Rales, Wheezes Gastrointestinal: Yes: Normal Bowel Sounds, Soft, Tenderness. No: Distention Extremities: Yes: WNL Edema: No Labs: CBC, BMP 06/14/18 05:30 06/14/18 05:30 INR, PTT INR 1.08 (0.83-1.09) 06/09/18 11:05 Problem List - Problems (1) Septic shock Code(s): A41.9 - SEPSIS, UNSPECIFIED ORGANISM; R65.21 - SEVERE SEPSIS WITH SEPTIC SHOCK (2) Pneumonia Code(s): J18.9 - PNEUMONIA, UNSPECIFIED ORGANISM Qualifiers: Pneumonia type: due to unspecified organism Laterality: left Lung location: lower lobe of lung Qualified Code(s): J18.1 - Lobar pneumonia, unspecified organism (3) Acute myocardial infarction Code(s): I21.9 - ACUTE MYOCARDIAL INFARCTION, UNSPECIFIED Qualifiers: Myocardial infarction type: unspecified Involved coronary artery: unspecified coronary artery Qualified Code(s): I21.9 - Acute myocardial infarction, unspecified (4) JOSE (acute kidney injury) Code(s): N17.9 - ACUTE KIDNEY FAILURE, UNSPECIFIED (5) Acute respiratory failure with hypoxia Code(s): J96.01 - ACUTE RESPIRATORY FAILURE WITH HYPOXIA (6) Acute metabolic encephalopathy Code(s): G93.41 - METABOLIC ENCEPHALOPATHY (7) Dementia Code(s): F03.90 - UNSPECIFIED DEMENTIA WITHOUT BEHAVIORAL DISTURBANCE (8) CHF (congestive heart failure) Code(s): I50.9 - HEART FAILURE, UNSPECIFIED Qualifiers: Heart failure type: systolic Heart failure chronicity: acute Qualified Code(s): I50.21 - Acute systolic (congestive) heart failure (9) Atrial fibrillation Code(s): I48.91 - UNSPECIFIED ATRIAL FIBRILLATION Qualifiers: Atrial fibrillation type: persistent Qualified Code(s): I48.1 - Persistent atrial fibrillation (10) Shock liver Code(s): K72.00 - ACUTE AND SUBACUTE HEPATIC FAILURE WITHOUT COMA Assessment/Plan (1) Septic shock Assessment/Plan: -worsening over the weekend -now with shock liver -continue antibiotics Code(s): A41.9 - SEPSIS, UNSPECIFIED ORGANISM; R65.21 - SEVERE SEPSIS WITH SEPTIC SHOCK (2) Pneumonia Assessment/Plan: -continue rocephin and zithromax -continue steroids -patient much improved today Code(s): J18.9 - PNEUMONIA, UNSPECIFIED ORGANISM Qualifiers: Pneumonia type: due to unspecified organism Laterality: left Lung location: lower lobe of lung Qualified Code(s): J18.1 - Lobar pneumonia, unspecified organism (3) Acute myocardial infarction Assessment/Plan: -continue heparin gtt Code(s): I21.9 - ACUTE MYOCARDIAL INFARCTION, UNSPECIFIED Qualifiers: Myocardial infarction type: unspecified Involved coronary artery: unspecified coronary artery Qualified Code(s): I21.9 - Acute myocardial infarction, unspecified (4) JOSE (acute kidney injury) Assessment/Plan: -worsening today -nephrology following -continue IVF Code(s): N17.9 - ACUTE KIDNEY FAILURE, UNSPECIFIED (5) Acute respiratory failure with hypoxia Assessment/Plan: -now on bipap Code(s): J96.01 - ACUTE RESPIRATORY FAILURE WITH HYPOXIA (6) Acute metabolic encephalopathy Assessment/Plan: -worsening today Code(s): G93.41 - METABOLIC ENCEPHALOPATHY (7) Dementia Assessment/Plan: -monitor Code(s): F03.90 - UNSPECIFIED DEMENTIA WITHOUT BEHAVIORAL DISTURBANCE (8) CHF -secondary to acute UT -cardiology following -diurese with IV lasix (9) Atrial fibrillation -new onset -continue heparin gtt -trial of toprol (10) Shock liver -suspect secondary to hypotension from afib -supportive care Case d/w ICU team 35 minutes spent in critical care time
[2018-06-14 10:27] LABS: ALK PHOS 144 U/L (45-117); ANION GAP 9 MMOL/L (8-16); BILIRUBIN,TOTAL 1.9 mg/dL (0.2-1); BLOOD UREA NITROGEN 83 mg/dL (7-18); CALCIUM 8.5 mg/dL (8.5-10.1); CHLORIDE 111 mmol/L (98-107); CO2 27 mmol/L (21-32); CREATININE 2.1 mg/dL (0.55-1.3); GLUCOSE,RANDOM 187 mg/dL (74-106); MAGNESIUM 2.7 mg/dL (1.8-2.4); PHOSPHOROUS 3.4 mg/dL (2.5-4.9); POTASSIUM 4.7 mmol/L (3.5-5.1); SGOT/AST 644 U/L (15-37); SGPT/ALT 1702 U/L (13-61); SODIUM 147 mmol/L (136-145); TOT PROT 5.9 g/dl (6.4-8.2)
--- NOTE | 2018-06-14 10:33 | PN ---
Progress Note, [facility] REMOVER - Note Progress Note: Selected Entries 06/14/18 06/14/18 06/14/18 02:00 06:00 09:57 Breakfast 75% Temperature 98.2 F 98.6 F Laboratory Tests 06/12/18 06/13/18 06/14/18 05:30 05:30 05:30 WBC 18.3 H 15.2 H 19.9 H Had breakfast, fed by nursing with compensatory swallowing strategies used. No overt signs of aspiration reported. Intermittently Awake Slightly tachypneic on bipap afebrile WBC remains elevated CXR increased markings L lung field Placed back on breakfast per MD crirical team, PO held. Silent aspiration can not be r/o at bedside. Suggest Dys puree/honey thick on tsp, when medically improved,1 tsp at a time, no continuous drinking/straw use. Do not feed when tachypneic/lethargic.
[2018-06-14] MEDS ORDERED: cefTRIAXone SODIUM 1 GM VIAL ONE (10:35)
[2018-06-14] MEDS ORDERED: DEXTROSE 5%-WATER - 50 ML IVPB ONE (10:35)
[2018-06-14] MEDS: CLOPIDOGREL BISULFATE 75 MG TABLET (FP) PO SCH (10:37)
[2018-06-14] MEDS: CEFTRIAXONE 1 GM in DEXTROSE 5%-WATER - 50 ML IVPB SCH (10:37)
[2018-06-14] MEDS: methylPREDNISolone NA SUCC 40 MG/1 ML VIAL IVPUSH SCH (10:37)
[2018-06-14] MEDS: ASPIRIN COATED 81 MG TABLET.EC PO SCH (10:38)
[2018-06-14] MEDS: CHOLECALCIFEROL (VITAMIN D3) 1,000 UNIT TABLET (FP) PO SCH (10:42)
[2018-06-14] MEDS: MUPIROCIN 2% TOPICAL OINTMENT FOR DECOLONIZATION NS SCH (10:42)
[2018-06-14] MEDS: AZITHROMYCIN IVPB 500 MG/250 ML BAG IVPB SCH (10:43)
[2018-06-14] MEDS: METOPROLOL TARTRATE 5 MG/5 ML VIAL IVPUSH PRN (10:45)
--- NOTE | 2018-06-14 11:11 | PN ---
Progress Note, Physician History of Present Illness: Awake on bipap Breathing slightly labored Low grade temp noted WBC remains elevated 19K - Current Medication List Current Medications: Active Medications Albuterol Sulfate (Ventolin 0.083% Nebulizer Soln -) 1 amp NEB Q4H PRN PRN Reason: SHORT OF BREATH/WHEEZING Last Admin: 06/11/18 00:34 Dose: 1 amp Albuterol/Ipratropium (Duoneb -) 1 amp NEB RQID [facility] Last Admin: 06/14/18 08:46 Dose: 1 amp Aspirin (Ecotrin -) 81 mg PO DAILY [facility] Last Admin: 06/14/18 10:38 Dose: 81 mg Atorvastatin Calcium (Lipitor -) 10 mg PO HS [facility] Last Admin: 06/13/18 21:34 Dose: 10 mg Chlorhexidine Gluconate (Hibiclens For Decolonization -) 1 applic TP HS [facility] Last Admin: 06/13/18 21:34 Dose: 1 applic Cholecalciferol (Vitamin D3 -) 1,000 unit PO DAILY [facility] Last Admin: 06/14/18 10:42 Dose: 1,000 unit Clopidogrel Bisulfate (Plavix -) 75 mg PO DAILY [facility] Last Admin: 06/14/18 10:37 Dose: 75 mg Heparin Sodium (Porcine) (Heparin -) 1,000 unit IVPUSH PRN PRN PRN Reason: Heparin Last Admin: 06/13/18 22:15 Dose: 1,000 unit Heparin Sodium (Porcine) (Heparin -) 5,000 unit IVPUSH PRN PRN PRN Reason: Heparin Azithromycin (Zithromax 500mg Ivpb (Pre-Docked)) 500 mg in 250 mls @ 250 mls/ hr IVPB DAILY [facility] Last Admin: 06/14/18 10:43 Dose: 250 mls/hr Ceftriaxone Sodium 1 gm/ (Dextrose) 50 mls @ 100 mls/hr IVPB DAILY [facility]; Protocol Last Admin: 06/14/18 10:37 Dose: 100 mls/hr Heparin Sodium (Porcine) 25, (000 unit/ Sodium Chloride) 500 mls @ 20 mls/hr IV TITR [facility]; Protocol Last Titration: 06/13/18 22:19 Dose: 1,100 unit/hr, 22 mls/hr Metoprolol Tartrate (Lopressor Injection -) 5 mg IVPUSH Q4H PRN PRN Reason: TACHYCARDIA Last Admin: 06/14/18 10:45 Dose: 5 mg Mupirocin (Bactroban Ointment (For Decolonization) -) 1 applic NS BID [facility] Stop: 06/14/18 21:59 Last Admin: 06/14/18 10:42 Dose: 1 applic - Objective Vital Signs: Vital Signs Temperature 98.6 F 06/14/18 06:00 Pulse Rate 158 H 06/14/18 10:45 Respiratory Rate 18 06/14/18 06:00 Blood Pressure 142/96 06/14/18 10:45 O2 Sat by Pulse Oximetry (%) 96 06/14/18 10:44 Constitutional: Yes: Mild Distress Cardiovascular: Yes: Regular Rate and Rhythm, Tachycardia, S1, S2 Respiratory: Yes: Diminished Gastrointestinal: Yes: Normal Bowel Sounds, Soft. No: Tenderness Edema: Yes Labs: CBC, BMP 06/14/18 05:30 06/14/18 05:30 INR, PTT INR 1.08 (0.83-1.09) 06/09/18 11:05 Assessment/Plan Hypoxemic resp failure LLL pneumonia Sepsis lactic acidosis NSTEMI Azotemia OBS Continue zithromax/ ceftriaxone Bipap
[2018-06-14] MEDS ORDERED: METOPROLOL TARTRATE 5 MG/5 ML VIAL IVPUSH ONE ×4 (11:28→17:17)
[2018-06-14] MEDS ORDERED: PT OWN MED DRAWER 7, Y5N ONE ×2 (11:51→17:13)
[2018-06-14] MEDS: HEPARIN - 25,000 UNIT in SODIUM CHLORIDE 495 ML IV SCH (12:28)
--- NOTE | 2018-06-14 12:43 | PN ---
Teaching Attending Note Name of Resident: Jareth Kauffman ATTENDING PHYSICIAN STATEMENT I saw and evaluated the patient. I reviewed the resident's note and discussed the case with the resident. I agree with the resident's findings and plan as documented. SUBJECTIVE: Pt seen and examined in the ICU. Tachypneic, diaphoretic on HFOT, placed back on BiPAP. Still with episodes of rapid afib. Denies chest or abdominal pain. OBJECTIVE: Vital Signs Period Temp Pulse Resp BP Sys/Boyer Pulse Ox Last 24 Hr 98.0 F-99.8 F 59-162 15-40 106-148/61-99 95-100 Intake & Output 06/11/18 06/12/18 06/13/18 06/14/18 23:59 23:59 23:59 23:59 Intake Total 1480 1260 853 338 Balance 1480 1260 853 338 Weight 92.986 kg 98 kg 94.461 kg 94.432 kg Gen: tachypneic, diaphoretic Heart: tachycardic, irregular Lung: scattered rhonchi Abd: soft, nontender Ext: + edema CBC, BMP 06/14/18 05:30 06/14/18 05:30 Active Medications Albuterol Sulfate (Ventolin 0.083% Nebulizer Soln -) 1 amp NEB Q4H PRN PRN Reason: SHORT OF BREATH/WHEEZING Last Admin: 06/11/18 00:34 Dose: 1 amp Albuterol/Ipratropium (Duoneb -) 1 amp NEB RQID [facility] Last Admin: 06/14/18 08:46 Dose: 1 amp Aspirin (Ecotrin -) 81 mg PO DAILY [facility] Last Admin: 06/14/18 10:38 Dose: 81 mg Chlorhexidine Gluconate (Hibiclens For Decolonization -) 1 applic TP HS [facility] Last Admin: 06/13/18 21:34 Dose: 1 applic Cholecalciferol (Vitamin D3 -) 1,000 unit PO DAILY [facility] Last Admin: 06/14/18 10:42 Dose: 1,000 unit Clopidogrel Bisulfate (Plavix -) 75 mg PO DAILY [facility] Last Admin: 06/14/18 10:37 Dose: 75 mg Heparin Sodium (Porcine) (Heparin -) 1,000 unit IVPUSH PRN PRN PRN Reason: Heparin Last Admin: 06/13/18 22:15 Dose: 1,000 unit Heparin Sodium (Porcine) (Heparin -) 5,000 unit IVPUSH PRN PRN PRN Reason: Heparin Azithromycin (Zithromax 500mg Ivpb (Pre-Docked)) 500 mg in 250 mls @ 250 mls/ hr IVPB DAILY [facility] Last Admin: 06/14/18 10:43 Dose: 250 mls/hr Ceftriaxone Sodium 1 gm/ (Dextrose) 50 mls @ 100 mls/hr IVPB DAILY [facility]; Protocol Last Admin: 06/14/18 10:37 Dose: 100 mls/hr Heparin Sodium (Porcine) 25, (000 unit/ Sodium Chloride) 500 mls @ 20 mls/hr IV TITR [facility]; Protocol Last Admin: 06/14/18 12:28 Dose: 1,100 unit/hr, 22 mls/hr Metoprolol Tartrate (Lopressor Injection -) 5 mg IVPUSH Q4H PRN PRN Reason: TACHYCARDIA Last Admin: 06/14/18 10:45 Dose: 5 mg Metoprolol Tartrate (Lopressor Injection -) 5 mg IVPUSH ONCE ONE Stop: 06/14/18 11:41 Mupirocin (Bactroban Ointment (For Decolonization) -) 1 applic NS BID [facility] Stop: 06/14/18 21:59 Last Admin: 06/14/18 10:42 Dose: 1 applic ASSESSMENT AND PLAN: Acute Hypoxic Respiratory Failure Pneumonia Severe Sepsis Lactic Acidosis Acute Kidney Injury Acute NSTEMI Acute Systolic Heart Failure Elevated LFTs Dementia - continue antibiotics - rate control - continue anticoagulation - lasix today - monitor urine output, creatinine - beta carole, ASA, plavix - check abdominal ultrasound - trend LFTs - O2 to keep Spo2 >90% - BiPAP to assist in work of breathing - aspiration precautions - DVT prophylaxis - continue ICU monitoring critical care time spent in reviewing chart, evaluating patient and formulating plan 35 min
[2018-06-14] MEDS ORDERED: FUROSEMIDE 40 MG/4 ML INJECTABLE VIAL IVPUSH ONE ×2 (12:45→14:47)
[2018-06-14 14:09] LABS: ANISOCYTOSIS 1+
[2018-06-14 14:10] LABS: MACROCYTOSIS 1+
--- NOTE | 2018-06-14 15:34 | PN ---
Physical Exam: SUBJECTIVE: Patient seen and examined at bedside. Complains of pain diffusely and being cold. OBJECTIVE: Vital Signs Period Temp Pulse Resp BP Sys/Boyer Pulse Ox Last 24 Hr 98.0 F-99.8 F 59-162 15-40 106-146/61-99 96-100 GENERAL: Lethargic, oriented only to name and forgetful, verbally fluent (at baseline per son) HEAD: NC/AT EYES: PERRLA, EOMI EARS, NOSE, THROAT: Moist mucous membranes. NECK: supple without lymphadenopathy LUNGS: Decreased breath sounds on left, diffuse crackles HEART: Tachycardic S1S2 nl, no reproducible pain ABDOMEN: +bs, soft, NT, ND EXTREMITIES: 2+ pulses, warm, well-perfused, mild pitting edema b/l NEUROLOGICAL: Moves 4 extremities spontaneously and complies with commands, motor strength and sensation grossly intact throughout Laboratory Results - last 24 hr 06/13/18 06/14/18 06/14/18 20:00 03:00 05:30 WBC RBC Hgb Hct MCV MCH MCHC RDW Plt Count MPV Absolute Neuts (auto) Total Counted Neutrophils % Neutrophils % (Manual) Band Neutrophils % Lymphocytes % Lymphocytes % (Manual) Monocytes % Monocytes % (Manual) Eosinophils % Eosinophils % (Manual) Basophils % Basophils % (Manual) Nucleated RBC % Polychromasia Anisocytosis Macrocytosis PTT (Actin FS) 40.1 H 66.3 H 63.1 H Sodium Potassium Chloride Carbon Dioxide Anion Gap BUN Creatinine Creat Clearance w eGFR Random Glucose Calcium Phosphorus Magnesium Total Bilirubin AST ALT Alkaline Phosphatase Total Protein Albumin 06/14/18 06/14/18 05:30 05:30 WBC 19.9 H RBC 3.38 L Hgb 10.8 L Hct 33.9 L MCV 100.4 H MCH 31.8 MCHC 31.7 L RDW 12.8 Plt Count 255 MPV 10.3 Absolute Neuts (auto) 15.6 H Total Counted 100 Neutrophils % 78.2 Neutrophils % (Manual) 74.0 Band Neutrophils % 0.0 Lymphocytes % 13.7 D Lymphocytes % (Manual) 16.0 Monocytes % 7.4 Monocytes % (Manual) 10 Eosinophils % 0.5 D Eosinophils % (Manual) 0.0 Basophils % 0.2 D Basophils % (Manual) 0.0 Nucleated RBC % 8 H Polychromasia 1+ Anisocytosis 1+ Macrocytosis 1+ PTT (Actin FS) Sodium 147 H Potassium 4.7 Chloride 111 H Carbon Dioxide 27 Anion Gap 9 BUN 83 H Creatinine 2.1 H Creat Clearance w eGFR 29.89 Random Glucose 187 H Calcium 8.5 Phosphorus 3.4 Magnesium 2.7 H Total Bilirubin 1.9 H AST 644 H ALT 1702 H Alkaline Phosphatase 144 H Total Protein 5.9 L Albumin 2.7 L Active Medications Generic Name Dose Route Start Last Admin Trade Name Freq PRN Reason Stop Dose Admin Albuterol Sulfate 1 amp 06/09/18 13:19 06/11/18 00:34 Ventolin 0.083% Nebulizer Soln - NEB 1 amp Q4H PRN Administration SHORT OF BREATH/WHEEZING Albuterol/Ipratropium 1 amp 06/09/18 16:00 06/14/18 12:45 Duoneb - NEB 1 amp RQID [facility] Administration Aspirin 81 mg 06/11/18 10:00 06/14/18 10:38 Ecotrin - PO 81 mg DAILY [facility] Administration Chlorhexidine Gluconate 1 applic 06/09/18 22:00 06/13/18 21:34 Hibiclens For Decolonization - TP 1 applic HS [facility] Administration Cholecalciferol 1,000 unit 06/10/18 10:00 06/14/18 10:42 Vitamin D3 - PO 1,000 unit DAILY [facility] Administration Clopidogrel Bisulfate 75 mg 06/11/18 10:00 06/14/18 10:37 Plavix - PO 75 mg DAILY [facility] Administration Furosemide 40 mg 06/15/18 10:00 Lasix Injection - IVPUSH DAILY [facility] Heparin Sodium (Porcine) 1,000 unit 06/13/18 12:03 06/13/18 22:15 Heparin - IVPUSH 1,000 unit PRN PRN Administration Heparin Heparin Sodium (Porcine) 5,000 unit 06/13/18 12:03 Heparin - IVPUSH PRN PRN Heparin Azithromycin 500 mg in 250 mls @ 250 mls/hr 06/10/18 10:00 06/14/18 10:43 Zithromax 500mg Ivpb (Pre-Docked) IVPB 250 mls/hr DAILY [facility] Administration Ceftriaxone Sodium 1 gm/ 50 mls @ 100 mls/hr 06/10/18 10:00 06/14/18 10:37 Dextrose IVPB 100 mls/hr DAILY [facility] Administration Protocol Heparin Sodium (Porcine) 25, 500 mls @ 20 mls/hr 06/13/18 12:15 06/14/18 12: 28 000 unit/ Sodium Chloride IV 1,100 unit/hr TITR [facility] 22 mls/hr Administration Protocol 1,000 UNIT/HR Metoprolol Succinate 25 mg 06/14/18 22:00 Toprol Xl - PO BID [facility] Mupirocin 1 applic 06/09/18 22:00 06/14/18 10:42 Bactroban Ointment (For Decolonization) - NS 06/14/18 21:59 1 applic BID [facility] Administration ASSESSMENT/PLAN: 88 y/o M w/ PMHx dementia, legal blindness, HTN, unknown cardiac Hx (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 CXR shows LLL consolidation. #cardiac -new Afib controlled, off cardizem drip -per cardiology, Plavix 75, ASA 81, Toprol 25 BID, Lasix 40 IVheparin gtt -cardiology on board, to start ZEV-i, will need long-term anticoagulation -echo: moderate to severely reduced LV function, moderate MV thickening, moderate MR, moderate TR, E/A reversal c/w poor LV compliance -strict I&O, daily weights -fluids held -repeat ABG pending -jarvis inserted for output monitoring -Lasix as needed #Pulmonary -acute hypoxic respiratory failure 2/2 PNA -could not be weaned from NIPPV -Duonebs standing/albuterol PRN -medrol 40 daily -cultures negative -CXR stable -Lasix 40 IV daily #ID -severe sepsis, maintaining BP -LLL consolidation on CXR -ID consulted (Dr. Nelson following) -cont empiric azithromycin/ceftriaxone -leukocytosis persistent/worsening, on solumedrol, remains afebrile #renal -JOSE: worsening -avoid nephrotoxic agents #GI -LFTs now markedly elevated, abd US ordered -trend LFTs, coags #FEN -no IVF -monitor BMP -NPO while on NIPPV, may give oral medications #PPx -DVT: heparin gtt -GI: not indicated at this time #Dispo -ICU -code status: DNR/DNI Visit type - Emergency Visit Emergency Visit: No - New Patient This patient is new to me today: No - Critical Care Critical Care patient: Yes Total Critical Care Time (in minutes): 40 Critical Care Statement: The care of this patient involved high complexity decision making to prevent further life threatening deterioration of the patient 's condition and/or to evaluate & treat vital organ system(s) failure or risk of failure.
--- NOTE | 2018-06-14 16:34 | PN ---
Progress Note (short form) - Note Progress Note: s: remains on bipap. episodes of afib with rvr. denies sob cp palps dizzy; confused (baseline dementia) o: Vital Signs Temp 98.0 F 06/14/18 10:00 Pulse 152 H 06/14/18 16:02 Resp 40 H 06/14/18 12:00 BP 146/91 06/14/18 16:02 Pulse Ox 99 06/14/18 14:27 Intake & Output 06/13/18 06/14/18 06/14/18 23:59 11:59 23:59 Intake Total 280 338 160 Balance 280 338 160 Weight 208 lb 3 oz Intake: IV 280 338 Cardizem Injection - 125 120 80 mg In D5w - 100 ml @ 5 MG /HR 5 mls/hr IVPB TITR [facility] Rx#:[id number] Heparin - 25,000 Unit In 160 258 Normal Saline - 495 ml @ 1,000 UNIT/HR 20 mls/hr IV TITR [facility] Rx#: [id number] Oral 160 Other: Voiding Method Incontinent Incontinent # Unmeasured Voids Void 1 2 Weight Measurement Method Built in [facility] nad no jvd rrr s1s2 no mrg bl rhonchi, nl eff, on bipap no le e/c/c abd nt nd pos bs no jaundice diaphoresis awake, confused Current Medications Generic Name Dose Route Start Last Admin Trade Name Freq PRN Reason Stop Dose Admin Albuterol Sulfate 1 amp 06/09/18 13:19 06/11/18 00:34 Ventolin 0.083% Nebulizer Soln - NEB 1 amp Q4H PRN Administration SHORT OF BREATH/WHEEZING Albuterol/Ipratropium 1 amp 06/09/18 16:00 06/14/18 12:45 Duoneb - NEB 1 amp RQID [facility]IO Administration Aspirin 81 mg 06/11/18 10:00 06/14/18 10:38 Ecotrin - PO 81 mg DAILY [facility] Administration Chlorhexidine Gluconate 1 applic 06/09/18 22:00 06/13/18 21:34 Hibiclens For Decolonization - TP 1 applic HS [facility] Administration Cholecalciferol 1,000 unit 06/10/18 10:00 06/14/18 10:42 Vitamin D3 - PO 1,000 unit DAILY [facility] Administration Clopidogrel Bisulfate 75 mg 06/11/18 10:00 06/14/18 10:37 Plavix - PO 75 mg DAILY [facility] Administration Furosemide 40 mg 06/15/18 10:00 Lasix Injection - IVPUSH DAILY [facility] Heparin Sodium (Porcine) 1,000 unit 06/13/18 12:03 06/13/18 22:15 Heparin - IVPUSH 1,000 unit PRN PRN Administration Heparin Heparin Sodium (Porcine) 5,000 unit 06/13/18 12:03 Heparin - IVPUSH PRN PRN Heparin Azithromycin 500 mg in 250 mls @ 250 mls/hr 06/10/18 10:00 06/14/18 10:43 Zithromax 500mg Ivpb (Pre-Docked) IVPB 250 mls/hr DAILY [facility] Administration Ceftriaxone Sodium 1 gm/ 50 mls @ 100 mls/hr 06/10/18 10:00 06/14/18 10:37 Dextrose IVPB 100 mls/hr DAILY [facility] Administration Protocol Heparin Sodium (Porcine) 25, 500 mls @ 20 mls/hr 06/13/18 12:15 06/14/18 12: 28 000 unit/ Sodium Chloride IV 1,100 unit/hr TITR [facility] 22 mls/hr Administration Protocol 1,000 UNIT/HR Metoprolol Succinate 25 mg 06/14/18 22:00 Toprol Xl - PO BID [facility] Mupirocin 1 applic 06/09/18 22:00 06/14/18 10:42 Bactroban Ointment (For Decolonization) - NS 06/14/18 21:59 1 applic BID [facility] Administration Laboratory Last Values WBC 19.9 K/mm3 (4.0-10.0) H 06/14/18 05:30 RBC 3.38 M/mm3 (4.00-5.60) L 06/14/18 05:30 Hgb 10.8 GM/dL (11.7-16.9) L 06/14/18 05:30 Hct 33.9 % (35.4-49) L 06/14/18 05:30 MCV 100.4 fl (80-96) H 06/14/18 05:30 MCH 31.8 pg (25.7-33.7) 06/14/18 05:30 MCHC 31.7 g/dl (32.0-35.9) L 06/14/18 05:30 RDW 12.8 % (11.9-15.9) 06/14/18 05:30 Plt Count 255 K/MM3 (134-434) 06/14/18 05:30 MPV 10.3 fl (7.5-11.1) 06/14/18 05:30 Absolute Neuts (auto) 15.6 K/mm3 (1.5-8.0) H 06/14/18 05:30 Total Counted 100 06/14/18 05:30 Neutrophils % 78.2 % (42.8-82.8) 06/14/18 05:30 Neutrophils % (Manual) 74.0 % (42.8-82.8) 06/14/18 05:30 Band Neutrophils % 0.0 % (0-10) 06/14/18 05:30 Lymphocytes % 13.7 % (8-40) D 06/14/18 05:30 Lymphocytes % (Manual) 16.0 % (8-40) 06/14/18 05:30 Monocytes % 7.4 % (3.8-10.2) 06/14/18 05:30 Monocytes % (Manual) 10 % (3.8-10.2) 06/14/18 05:30 Eosinophils % 0.5 % (0-4.5) D 06/14/18 05:30 Eosinophils % (Manual) 0.0 % (0-4.5) 06/14/18 05:30 Basophils % 0.2 % (0-2.0) D 06/14/18 05:30 Basophils % (Manual) 0.0 % (0-2.0) 06/14/18 05:30 Myelocytes % (Man) 0 % (0-2) 06/09/18 12:08 Promyelocytes % (Man) 0 % (0-2) 06/09/18 12:08 Blast Cells % (Manual) 0 % (0-0) 06/09/18 12:08 Nucleated RBC % 8 % (0-0) H 06/14/18 05:30 Metamyelocytes 0 % (0-2) 06/09/18 12:08 Hypochromia 0 06/09/18 12:08 Platelet Estimate Normal 06/09/18 12:08 Polychromasia 1+ 06/14/18 05:30 Poikilocytosis 0 06/09/18 12:08 Anisocytosis 1+ 06/14/18 05:30 Microcytosis 3+ 06/09/18 12:08 Macrocytosis 1+ 06/14/18 05:30 Stomatocytes 1+ 06/09/18 12:08 PT with INR 12.80 SEC (9.7-13.0) 06/09/18 11:05 INR 1.08 (0.83-1.09) 06/09/18 11:05 PTT (Actin FS) 63.1 SECONDS (25.2-36.5) H 06/14/18 05:30 D-Dimer 1945 ng/ml (0-500) H 06/09/18 11:05 Anticoagulation Therapy No Result Required. 06/10/18 06:10 Puncture Site Left radial 06/13/18 06:00 Patient Temperature 29 06/12/18 15:40 ABG pH 7.42 (7.35-7.45) 06/13/18 06:00 ABG pCO2 at Pt Temp 35.9 mmHg (35-45) 06/13/18 06:00 ABG pO2 at Pt Temp 119.0 mmHg (68-100) H D 06/13/18 06:00 ABG HCO3 22.7 meq/L (22-26) 06/13/18 06:00 ABG O2 Sat (Measured) 98.4 % (90-98.9) 06/13/18 06:00 ABG O2 Content 15.3 % vol (15-22) 06/13/18 06:00 ABG Base Excess -0.9 meq/l (-2-2) 06/13/18 06:00 Antonio Test Positive 06/13/18 06:00 O2 Delivery Device Bipap 06/13/18 06:00 Oxygen Flow Rate 80% 06/13/18 06:00 Vent Mode S/t 06/13/18 06:00 Vent Rate 14 06/13/18 06:00 Mechanical Rate No Result Required. 06/10/18 06:10 PEEP 0.0 cmH2O 06/13/18 06:00 Pressure Support Vent 14/6 06/13/18 06:00 Sodium 147 mmol/L (136-145) H 06/14/18 05:30 Potassium 4.7 mmol/L (3.5-5.1) 06/14/18 05:30 Chloride 111 mmol/L (98-107) H 06/14/18 05:30 Carbon Dioxide 27 mmol/L (21-32) 06/14/18 05:30 Anion Gap 9 MMOL/L (8-16) 06/14/18 05:30 BUN 83 mg/dL (7-18) H 06/14/18 05:30 Creatinine 2.1 mg/dL (0.55-1.3) H 06/14/18 05:30 Creat Clearance w eGFR 29.89 (>60) 06/14/18 05:30 Random Glucose 187 mg/dL (74-106) H 06/14/18 05:30 Lactic Acid 3.6 mmol/L (0.4-2.0) H* 06/09/18 14:59 Calcium 8.5 mg/dL (8.5-10.1) 06/14/18 05:30 Phosphorus 3.4 mg/dL (2.5-4.9) 06/14/18 05:30 Magnesium 2.7 mg/dL (1.8-2.4) H 06/14/18 05:30 Total Bilirubin 1.9 mg/dL (0.2-1) H 06/14/18 05:30 AST 644 U/L (15-37) H 06/14/18 05:30 ALT 1702 U/L (13-61) H 06/14/18 05:30 Alkaline Phosphatase 144 U/L (45-117) H 06/14/18 05:30 Creatine Kinase 266 IU/L (26-308) 06/09/18 12:08 Creatine Kinase Index 11.8 % (0.0-5.0) H* 06/09/18 12:08 CK-MB (CK-2) 31.4 ng/mL (0.5-3.6) H 06/09/18 12:08 Troponin I 8.84 ng/ml (0.00-0.05) H* 06/12/18 05:30 B-Natriuretic Peptide 41439.7 pg/ml (5-450) H 06/09/18 14:59 Total Protein 5.9 g/dl (6.4-8.2) L 06/14/18 05:30 Albumin 2.7 g/dl (3.4-5.0) L 06/14/18 05:30 Triglycerides 97 mg/dL (0-150) 06/10/18 05:30 Cholesterol 136 mg/dL (50-200) 06/10/18 05:30 Total LDL Cholesterol 73 mg/dL (5-100) 06/10/18 05:30 HDL Cholesterol 53 mg/dL (40-60) 06/10/18 05:30 TSH 1.73 uIU/ml (0.358-3.74) 06/09/18 14:59 cxr: chf ecg: sr, nl intervals, no ischemic changes echo: 12/2015: nl lv/rv, no sig valve path, nl rvsp echo 05/2018: tds; mod-sev dec lvef, rv tds, mod mr, mild-mod tr, nl rvsp tele: sr now, afib with rvr earlier mibi 03/2011: no ischemia/scar est cct 35 mins a/p: 88 m hx dementia, htn, hld, prostate ca here with sob. nstemi, new systolic chf: -elevated trop and ckmb c/w nstemi -ecg unremarkable -cont statin, asa, plavix. had hep gtt for 72 hrs. -echo shows newly reduced lvef and he has pulm congestion so agree with lasix 40 iv qd -start toprol 25 bid for chf and afib -cont tele -further ischemic eval based on clinical course-->now dnr/dni per family sepsis, pna: -cont abx -icu care linda: -likely 2/2 sepsis -monitor cr trend, stable htn: -cont bb for afib, bp controlled hld: -cont statin pafib: -cont hep gtt for AC -start toprol 25 bid for rate control, cont tele and titrate up as needed
[2018-06-14] MEDS ORDERED: metoPROLOL SUCCINATE 25 MG TAB.SR.24H (FP) PO ONE (17:21)
--- NOTE | 2018-06-14 18:00 | PN ---
Progress Note (short form) - Note Progress Note: Rate could not be controlled with multiple Lopressor IV pushes and Toprol XL, wished to avoid exacerbating CHF with negative inotrope therefore started Esmolol drip rather than Cardizem
[2018-06-14] MEDS: ESMOLOL 2500 MG/250 ML 2,500,000 MCG/250 ML INFUS.BAG IVPB SCH ×3 (18:19→23:00)
[2018-06-14 18:27] LABS: ALBUMIN 2.9 g/dl (3.4-5.0); ALK PHOS 217 U/L (45-117); ANION GAP 11 MMOL/L (8-16); BILIRUBIN,TOTAL 3.2 mg/dL (0.2-1); BLOOD UREA NITROGEN 92 mg/dL (7-18); CALCIUM 9.5 mg/dL (8.5-10.1); CHLORIDE 113 mmol/L (98-107); CO2 22 mmol/L (21-32); CREATININE 2.5 mg/dL (0.55-1.3); GLUCOSE,RANDOM 203 mg/dL (74-106); POTASSIUM 4.9 mmol/L (3.5-5.1); SGOT/AST 1091 U/L (15-37); SGPT/ALT 2096 U/L (13-61); SODIUM 146 mmol/L (136-145)
[2018-06-14] MEDS ORDERED: MORPHINE SULFATE 2 MG/ML VIAL IVPUSH ONE (20:22)
[2018-06-14] MEDS ORDERED: MORPHINE SULFATE 2 MG/ML VIAL IM PRN (20:28)
[2018-06-14] MEDS ORDERED: metoPROLOL SUCCINATE 25 MG TAB.SR.24H (FP) PO SCH (22:00)
[2018-06-14] MEDS ORDERED: DIGOXIN 0.5 MG/2 ML AMPUL IVPUSH ONE (22:30)
[2018-06-14] MEDS: CHLORHEXIDINE GLUCONATE 4% CLEANSER FOR DECOLONIZATION TP SCH (22:38)
--- NOTE | 2018-06-15 00:51 | PN ---
Progress Note (short form) - Note Progress Note: spoke with patients son, he is considering comfort measures. Palliative consult placed and 1 mg morphinge q4 h ordered for air hunger. patient tachycardic 140s on esmolol @ 150 and hypotensive MAP 60. Loaded with Digoxin, pressure improved to MAP 70 and increased esmolol gtt to 200. patient still tachy 120's-130's. Given family inclination for comfort measures, tenuous BP and liver failure, will refrain changing drips and will rather wait for digoxin concentration to build up.
[2018-06-15 06:14] LABS: BASO % 0.1 % (0-2.0); HEMATOCRIT 32.3 % (35.4-49); HEMOGLOBIN 10.3 GM/dL (11.7-16.9); LYMPH % 12.9 % (8-40); MCH 32.2 pg (25.7-33.7); MCHC 31.8 g/dl (32.0-35.9); MEAN CELL VOLUME 101.2 fl (80-96); MEAN PLT VOLUME 10.2 fl (7.5-11.1); MONO % 7.6 % (3.8-10.2); NEUT % 79.4 % (42.8-82.8); PLATELET COUNT 256 K/MM3 (134-434); RBC 3.19 M/mm3 (4.00-5.60); WHITE BLOOD COUNT 29.9 K/mm3 (4.0-10.0)
[2018-06-15 06:23] LABS: INR 2.1 (0.83-1.09)
[2018-06-15 06:43] LABS: BILIRUBIN,DIRECT 2.4 mg/dL (0.0-0.2)
[2018-06-15 07:06] LABS: ALBUMIN 2.5 g/dl (3.4-5.0); ALK PHOS 181 U/L (45-117); ANION GAP 10 MMOL/L (8-16); BILIRUBIN,TOTAL 3.5 mg/dL (0.2-1); CALCIUM 8.4 mg/dL (8.5-10.1); CHLORIDE 116 mmol/L (98-107); CO2 19 mmol/L (21-32); CREATININE 3.2 mg/dL (0.55-1.3); GLUCOSE,RANDOM 163 mg/dL (74-106); MAGNESIUM 2.7 mg/dL (1.8-2.4); PHOSPHOROUS 4.1 mg/dL (2.5-4.9); POTASSIUM 5.4 mmol/L (3.5-5.1); SGOT/AST 3191 U/L (15-37); SGPT/ALT 3400 U/L (13-61); SODIUM 145 mmol/L (136-145); TOT PROT 5.3 g/dl (6.4-8.2)
[2018-06-15 08:00] LABS: BLOOD UREA NITROGEN 114 mg/dL (7-18)
[2018-06-15] MEDS ORDERED: DILTIAZEM INJECTION 125 MG in SODIUM CHLORIDE 100 ML IVPB SCH (08:00)
[2018-06-15] MEDS ORDERED: INSULIN REGULAR HUMAN 100 UNITS/ML *VIAL SQ ONE (08:01)
[2018-06-15] MEDS ORDERED: INSULIN REGULAR HUMAN 100 UNITS/ML *VIAL IVPUSH ONE (08:01)
[2018-06-15] MEDS ORDERED: dilTIAZem HCL 125 MG/25 ML - 25 ML VIAL ONE (08:02)
[2018-06-15] MEDS ORDERED: dilTIAZem HCL 50 MG/10 ML - 10 ML VIAL ONE (08:02)
[2018-06-15] MEDS ORDERED: DEXTROSE 50%-WATER 25 GM/50 ML DISP.SYRIN ONE (08:23)
[2018-06-15] MEDS: ALBUTEROL SO4 2.5/IPRATROPIUM 0.5 INH SOL 3 ML VIAL.NEB. NEB SCH ×4 (08:31→21:00)
--- NOTE | 2018-06-15 08:49 | CON.GI ---
Consult Consult Specialty:: GI Referred by:: Hospitalist service Reason for Consultation:: abnormal liver chemistries - History of Present Illness Chief Complaint: Patient does not give history History of Present Illness: 88M admitted 06/09 for evaluation of respiratory distress. Was hypoxic, noted to have NSTEMI and developed A. FIb w/ RVR. Asked to evaluate abnormal liver chemistreis. LFTs were unrevealing on admission. They were checked 5 days later and were elevated. He was given amiodarone 06/12. He in maintained on a cardizem drip and is still in A. Fib w/ RVR. He has had episodes of hypotension. There is no history of prior liver disease in the chart. There is no abdominal imaging as of yet. 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 Cardio/Vascular: Yes: Hyperlipdemia - Past Surgical History Past Surgical History: Yes: Prostatectomy - Alcohol/Substance Use Hx Alcohol Use: No History of Substance Use: reports: None - Smoking History Smoking history: Never smoked - Social History ADL: Family Assistance History of Recent Travel: No Home Medications - Allergies Allergies/Adverse Reactions: Allergies Allergy/AdvReac Type Severity Reaction Status Date / Time No Known Allergies Allergy Verified 06/09/18 10:48 - Home Medications Home Medications: Ambulatory Orders Aspirin [ASA -] 81 mg PO DAILY 07/28/13 Atorvastatin Ca [Lipitor -] 10 mg PO DAILY 07/28/13 Cholecalciferol (Vitamin D3) [Vitamin D] 2,000 unit PO DAILY 07/28/13 Diltiazem HCl [Cardizem] 180 mg PO DAILY 07/28/13 Duloxetine HCl [Cymbalta -] 30 mg PO BID 07/28/13 Multivitamin with Minerals [Multiple Vitamin] 1 each PO DAILY 07/28/13 Vitamin B Complex [B-50 Complex] 1 each PO DAILY 07/28/13 Bioflavonoids, Gillespie [Gillespie Bioflavonoids] 1,000 mg PO DAILY 06/09/18 Cyanocobalamin [Vitamin B12 -] 500 mcg PO DAILY 06/09/18 Donepezil HCl [Aricept] 23 mg PO DAILY 06/09/18 Meloxicam [Mobic] 15 mg PO DAILY 06/09/18 Memantine HCl [Namenda Xr] 28 mg PO DAILY 06/09/18 Methylphenidate HCl [Ritalin LA] 10 mg PO DAILY 06/09/18 Turm/Ging/Manas/Yuc/Finesse/Laura/Hor [Tumersaid Tablet] 500 each PO BID 06/09/18 Vitamin E 400 unit PO DAILY 06/09/18 Family Disease History - Family Disease History Family Disease History: Other: Brother (dementia), Sister (dementia) Physical Exam-GI Vital Signs: Vital Signs Temperature 98.4 F 06/15/18 06:00 Pulse Rate 140 H 06/15/18 08:10 Respiratory Rate 24 H 06/15/18 06:00 Blood Pressure 94/73 06/15/18 08:10 O2 Sat by Pulse Oximetry (%) 97 06/15/18 06:23 Constitutional: Yes: Calm Eyes: No: Sclera Icterus Cardiovascular: Yes: Tachycardia, Pulse Irregular Respiratory: Yes: Diminished (at bases bilaterally) Gastrointestinal Inspection: No: Distention ...Auscultate: Yes: Normoactive Bowel Sounds ...Palpate: Yes: Soft ...Percussion: No: Tympanitic Edema: Yes (b/l pedal edema) Neurological: Yes: Other (Awake) Labs: CBC, BMP 06/15/18 05:30 06/15/18 05:30 INR, PTT INR 2.10 (0.83-1.09) H 06/15/18 05:30 Hepatic Panel Total Bilirubin 3.5 mg/dL (0.2-1) H 06/15/18 05:30 Direct Bilirubin 2.4 mg/dL (0.0-0.2) H 06/15/18 05:30 AST 3191 U/L (15-37) H 06/15/18 05:30 ALT 3400 U/L (13-61) H 06/15/18 05:30 Alkaline Phosphatase 181 U/L (45-117) H 06/15/18 05:30 Albumin 2.5 g/dl (3.4-5.0) L 06/15/18 05:30 Problem List - Problems (1) Abnormal liver function test Assessment/Plan: Suspect a multifactorial cause of Mr. Millard's liver decompensation including component of ischemic hepatopathy from hypotensive episodes / AK and med induced toxicity as he received amiodarone and is maintained on cardizerm drip. The possibility of rhabdomyolysis being a contributing factor as well would need to be considered Advised: Avoidance of hepatotoxic agents. Use less cholestatic antiboiotic as opposed to ceftriaxone Abdominal US with doppler of hepatic veins / portal vein. Doppler study will need to be specified The patient is elderly on full anticoagulation and dual antiplatelet therapy. Should be on GI prophylaxis. Added protonix Monitor LFTs' / Coags daily Added on CPK to AM labs. Please follow-up with lab to make sure it gets done Supportive measures Overall poor prognosis Code(s): R94.5 - ABNORMAL RESULTS OF LIVER FUNCTION STUDIES
[2018-06-15] MEDS ORDERED: MORPHINE SULFATE 2 MG/ML VIAL IVPUSH ONE (09:13)
[2018-06-15 09:24] LABS: ANISOCYTOSIS 1+; CORRECTED WBC 25.13 K/mm3; MACROCYTOSIS 1+; PLATELET ESTIMATE NORMAL
[2018-06-15] MEDS ORDERED: DEXTROSE 5%-WATER - 50 ML IVPB ONE (09:37)
[2018-06-15] MEDS ORDERED: cefTRIAXone SODIUM 1 GM VIAL ONE (09:37)
[2018-06-15] MEDS ORDERED: FUROSEMIDE 40 MG/4 ML INJECTABLE VIAL IVPUSH SCH (10:00)
[2018-06-15] MEDS ORDERED: CALCIUM GLUCONATE 10% - 1,000 MG/10 ML VIAL IVPB ONE (10:00)
[2018-06-15] MEDS ORDERED: DEXTROSE 50%-WATER - 25 GM/50 ML VIAL IVPUSH ONE (10:15)
[2018-06-15] MEDS ORDERED: PANTOPRAZOLE SODIUM 40 MG VIAL IVPUSH SCH (10:15)
--- NOTE | 2018-06-15 10:28 | CONSULT ---
Consult - text type - Consultation Consultation Note: Renal Consult for JOSE This is a 88 year old Gentleman with hx of Demetia, Hypertension, Prostate Cancer, Hypertension, Hyperlipidemia who presented with SOb and found to have sepsis from PNA with JOSE and NSTEMI. Pt unable to provide history, case disucssed with son over the phone. Pt w/o hx of kidney disease prior to this admission. Currently pt voiding in diaper and unclear exact urine output. Pt is not on pressers and MAP >65. On Cardizem gtt. No contrast exposure or overt nephrotoxins administered. PMhx: as above Allergies: NKDA Family Hx: NC Social Hx: No T/A/D ROS: unable to obtain because of clinical status Home Medications Medication Instructions Recorded Aspirin [ASA -] 81 mg PO DAILY 07/28/13 Atorvastatin Ca [Lipitor -] 10 mg PO DAILY 07/28/13 Cholecalciferol (Vitamin D3) 2,000 unit PO DAILY 07/28/13 [Vitamin D] Diltiazem HCl [Cardizem] 180 mg PO DAILY 07/28/13 Duloxetine HCl [Cymbalta -] 30 mg PO BID 07/28/13 Multivitamin with Minerals 1 each PO DAILY 07/28/13 [Multiple Vitamin] Vitamin B Complex [B-50 Complex] 1 each PO DAILY 07/28/13 Bioflavonoids, Adair [Adair 1,000 mg PO DAILY 06/09/18 Bioflavonoids] Cyanocobalamin [Vitamin B12 -] 500 mcg PO DAILY 06/09/18 Donepezil HCl [Aricept] 23 mg PO DAILY 06/09/18 Meloxicam [Mobic] 15 mg PO DAILY 06/09/18 Memantine HCl [Namenda Xr] 28 mg PO DAILY 06/09/18 Methylphenidate HCl [Ritalin LA] 10 mg PO DAILY 06/09/18 Turm/Ging/Manas/Yuc/Finesse/Laura/Hor 500 each PO BID 06/09/18 [Tumersaid Tablet] Vitamin E 400 unit PO DAILY 06/09/18 Vital Signs Temperature 98.4 F 06/15/18 06:00 Pulse Rate 140 H 06/15/18 08:10 Respiratory Rate 24 H 06/15/18 06:00 Blood Pressure 94/73 06/15/18 08:10 O2 Sat by Pulse Oximetry (%) 97 06/15/18 06:23 Intake & Output 06/12/18 06/13/18 06/14/18 06/15/18 23:59 23:59 23:59 23:59 Intake Total 1260 698 710 8819 Balance 1260 513 970 2222 Weight 98 kg 94.461 kg 94.432 kg 92.59 kg NAD on BIPAP Neck supple No JVD irregular, no M/R Course BS soft NT/ND No bladder distension No LE edema, clubbing or cyanosis awake and alert CBC, BMP 06/15/18 05:30 06/15/18 05:30 Laboratory Tests 06/14/18 06/14/18 06/15/18 05:30 16:30 05:30 BUN 83 H 92 H 114 H* Creatinine 2.1 H 2.5 H 3.2 H Laboratory Tests 06/13/18 06:00 ABG pH 7.42 ABG pCO2 at Pt Temp 35.9 ABG pO2 at Pt Temp 119.0 H D ABG HCO3 22.7 88 year old Gentleman with hx of Demetia, Hypertension, Prostate Cancer, Hypertension, Hyperlipidemia who presented with SOb and foudn to have sepsis from PNA with JOSE and NSTEMI. 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
[2018-06-15] MEDS: CEFTRIAXONE 1 GM in DEXTROSE 5%-WATER - 50 ML IVPB SCH (11:16)
[2018-06-15] MEDS ORDERED: MORPHINE SULFATE 2 MG/ML VIAL IVPUSH PRN (11:17)
--- NOTE | 2018-06-15 11:42 | PN ---
Progress Note (short form) - Note Progress Note: s: remains on bipap. episodes of afib with rvr. lethargic today o: Vital Signs Temp 98.6 F 06/15/18 10:00 Pulse 126 H 06/15/18 10:00 Resp 26 H 06/15/18 10:00 BP 109/77 06/15/18 10:00 Pulse Ox 98 06/15/18 10:25 Intake & Output 06/14/18 06/14/18 06/15/18 11:59 23:59 11:59 Intake Total 978 910 7873 Balance 789 920 0933 Weight 208 lb 3 oz 204 lb 2 oz Intake: IV 338 1492 Cardizem Injection - 125 80 mg In D5w - 100 ml @ 5 MG /HR 5 mls/hr IVPB TITR [facility] Rx#:[id number] ESMOLOL 1227 Heparin - 25,000 Unit In 258 265 Normal Saline - 495 ml @ 1,000 UNIT/HR 20 mls/hr IV TITR [facility] Rx#: [id number] Oral 160 0 Other: Voiding Method Incontinent Incontinent # Unmeasured Voids Void 2 1 2 Weight Measurement Method Built in [facility] Built in [facility] nad no jvd rrr s1s2 no mrg bl rhonchi, poor eff, on bipap no le e/c/c abd nt nd pos bs no jaundice diaphoresis awake, confused Current Medications Generic Name Dose Route Start Last Admin Trade Name Freq PRN Reason Stop Dose Admin Albuterol Sulfate 1 amp 06/09/18 13:19 06/11/18 00:34 Ventolin 0.083% Nebulizer Soln - NEB 1 amp Q4H PRN Administration SHORT OF BREATH/WHEEZING Albuterol/Ipratropium 1 amp 06/09/18 16:00 06/15/18 08:31 Duoneb - NEB 1 amp RQID [facility] Administration Aspirin 81 mg 06/11/18 10:00 06/14/18 10:38 Ecotrin - PO 81 mg DAILY [facility] Administration Chlorhexidine Gluconate 1 applic 06/09/18 22:00 06/14/18 22:38 Hibiclens For Decolonization - TP 1 applic HS [facility] Administration Cholecalciferol 1,000 unit 06/10/18 10:00 06/14/18 10:42 Vitamin D3 - PO 1,000 unit DAILY [facility] Administration Clopidogrel Bisulfate 75 mg 06/11/18 10:00 06/14/18 10:37 Plavix - PO 75 mg DAILY [facility] Administration Furosemide 40 mg 06/15/18 10:00 06/15/18 10:17 Lasix Injection - IVPUSH 40 mg DAILY [facility] Administration Heparin Sodium (Porcine) 1,000 unit 06/13/18 12:03 06/13/18 22:15 Heparin - IVPUSH 1,000 unit PRN PRN Administration Heparin Heparin Sodium (Porcine) 5,000 unit 06/13/18 12:03 06/15/18 10:10 Heparin - IVPUSH 5,000 unit PRN PRN Administration Heparin Azithromycin 500 mg in 250 mls @ 250 mls/hr 06/10/18 10:00 06/14/18 10:43 Zithromax 500mg Ivpb (Pre-Docked) IVPB 250 mls/hr DAILY [facility] Administration Ceftriaxone Sodium 1 gm/ 50 mls @ 100 mls/hr 06/10/18 10:00 06/15/18 11:16 Dextrose IVPB 100 mls/hr DAILY [facility] Administration Protocol Heparin Sodium (Porcine) 25, 500 mls @ 20 mls/hr 06/13/18 12:15 06/15/18 10: 10 000 unit/ Sodium Chloride IV 1,250 unit/hr TITR [facility] 25 mls/hr Titration Protocol 1,000 UNIT/HR Diltiazem HCl 125 mg/ Sodium 125 mls @ 5 mls/hr 06/15/18 08:00 06/15/18 08:10 Chloride IVPB 5 mg/hr TITR [facility] 5 mls/hr Administration Protocol 5 MG/HR Morphine Sulfate 1 mg 06/14/18 20:28 Morphine Sulfate IM Q4H PRN PAIN LEVEL 4 - 6 Morphine Sulfate 2 mg 06/15/18 11:17 Morphine Sulfate IVPUSH Q4H PRN PAIN LEVEL 6-10 Pantoprazole Sodium 40 mg 06/15/18 10:15 06/15/18 10:17 Protonix Iv IVPUSH 40 mg DAILY [facility] Administration Propranolol HCl 20 mg 06/15/18 11:45 Inderal - PO Q6HPO [facility] Last Values WBC 29.9 K/mm3 (4.0-10.0) H 06/15/18 05:30 Corrected WBC (auto) 25.13 K/mm3 06/15/18 05:30 RBC 3.19 M/mm3 (4.00-5.60) L 06/15/18 05:30 Hgb 10.3 GM/dL (11.7-16.9) L 06/15/18 05:30 Hct 32.3 % (35.4-49) L 06/15/18 05:30 MCV 101.2 fl (80-96) H 06/15/18 05:30 MCH 32.2 pg (25.7-33.7) 06/15/18 05:30 MCHC 31.8 g/dl (32.0-35.9) L 06/15/18 05:30 RDW 13.0 % (11.9-15.9) 06/15/18 05:30 Plt Count 256 K/MM3 (134-434) 06/15/18 05:30 MPV 10.2 fl (7.5-11.1) 06/15/18 05:30 Absolute Neuts (auto) 23.7 K/mm3 (1.5-8.0) H 06/15/18 05:30 Total Counted 100 06/14/18 05:30 Neutrophils % 79.4 % (42.8-82.8) 06/15/18 05:30 Neutrophils % (Manual) 75.8 % (42.8-82.8) 06/15/18 05:30 Band Neutrophils % 1.0 % 06/15/18 05:30 Lymphocytes % 12.9 % (8-40) 06/15/18 05:30 Lymphocytes % (Manual) 12.1 % (8-40) D 06/15/18 05:30 Monocytes % 7.6 % (3.8-10.2) 06/15/18 05:30 Monocytes % (Manual) 7 % (3.8-10.2) D 06/15/18 05:30 Eosinophils % 0.0 % (0-4.5) D 06/15/18 05:30 Eosinophils % (Manual) 0.0 % (0-4.5) 06/15/18 05:30 Basophils % 0.1 % (0-2.0) 06/15/18 05:30 Basophils % (Manual) 0.0 % (0-2.0) 06/15/18 05:30 Myelocytes % (Man) 1 % (0-2) D 06/15/18 05:30 Promyelocytes % (Man) 0 % (0-2) 06/15/18 05:30 Blast Cells % (Manual) 0 % (0-0) 06/15/18 05:30 Nucleated RBC % 8 % (0-0) H 06/15/18 05:30 Metamyelocytes 1 % (0-2) D 06/15/18 05:30 Hypochromia 0 06/15/18 05:30 Platelet Estimate Normal 06/15/18 05:30 Polychromasia 1+ 06/15/18 05:30 Poikilocytosis 0 06/15/18 05:30 Anisocytosis 1+ 06/15/18 05:30 Microcytosis 0 06/15/18 05:30 Macrocytosis 1+ 06/15/18 05:30 Stomatocytes 1+ 06/09/18 12:08 PT with INR 25.00 SEC (9.7-13.0) H 06/15/18 05:30 INR 2.10 (0.83-1.09) H 06/15/18 05:30 PTT (Actin FS) 36.4 SECONDS (25.2-36.5) 06/15/18 05:30 D-Dimer 1945 ng/ml (0-500) H 06/09/18 11:05 Anticoagulation Therapy No Result Required. 06/10/18 06:10 Puncture Site Left radial 06/13/18 06:00 Patient Temperature 29 06/12/18 15:40 ABG pH 7.42 (7.35-7.45) 06/13/18 06:00 ABG pCO2 at Pt Temp 35.9 mmHg (35-45) 06/13/18 06:00 ABG pO2 at Pt Temp 119.0 mmHg (68-100) H D 06/13/18 06:00 ABG HCO3 22.7 meq/L (22-26) 06/13/18 06:00 ABG O2 Sat (Measured) 98.4 % (90-98.9) 06/13/18 06:00 ABG O2 Content 15.3 % vol (15-22) 06/13/18 06:00 ABG Base Excess -0.9 meq/l (-2-2) 06/13/18 06:00 Antonio Test Positive 06/13/18 06:00 O2 Delivery Device Bipap 06/13/18 06:00 Oxygen Flow Rate 80% 06/13/18 06:00 Vent Mode S/t 06/13/18 06:00 Vent Rate 14 06/13/18 06:00 Mechanical Rate No Result Required. 06/10/18 06:10 PEEP 0.0 cmH2O 06/13/18 06:00 Pressure Support Vent 14/6 06/13/18 06:00 Sodium 145 mmol/L (136-145) 06/15/18 05:30 Potassium 5.4 mmol/L (3.5-5.1) H 06/15/18 05:30 Chloride 116 mmol/L (98-107) H 06/15/18 05:30 Carbon Dioxide 19 mmol/L (21-32) L 06/15/18 05:30 Anion Gap 10 MMOL/L (8-16) 06/15/18 05:30 BUN 114 mg/dL (7-18) H* 06/15/18 05:30 Creatinine 3.2 mg/dL (0.55-1.3) H 06/15/18 05:30 Creat Clearance w eGFR 18.38 (>60) 06/15/18 05:30 Random Glucose 163 mg/dL (74-106) H 06/15/18 05:30 Lactic Acid 3.6 mmol/L (0.4-2.0) H* 06/09/18 14:59 Calcium 8.4 mg/dL (8.5-10.1) L 06/15/18 05:30 Phosphorus 4.1 mg/dL (2.5-4.9) 06/15/18 05:30 Magnesium 2.7 mg/dL (1.8-2.4) H 06/15/18 05:30 Total Bilirubin 3.5 mg/dL (0.2-1) H 06/15/18 05:30 Direct Bilirubin 2.4 mg/dL (0.0-0.2) H 06/15/18 05:30 AST 3191 U/L (15-37) H 06/15/18 05:30 ALT 3400 U/L (13-61) H 06/15/18 05:30 Alkaline Phosphatase 181 U/L (45-117) H 06/15/18 05:30 Creatine Kinase 266 IU/L (26-308) 06/09/18 12:08 Creatine Kinase Index 11.8 % (0.0-5.0) H* 06/09/18 12:08 CK-MB (CK-2) 31.4 ng/mL (0.5-3.6) H 06/09/18 12:08 Troponin I 8.84 ng/ml (0.00-0.05) H* 06/12/18 05:30 B-Natriuretic Peptide 60878.7 pg/ml (5-450) H 06/09/18 14:59 Total Protein 5.3 g/dl (6.4-8.2) L 06/15/18 05:30 Albumin 2.5 g/dl (3.4-5.0) L 06/15/18 05:30 Triglycerides 97 mg/dL (0-150) 06/10/18 05:30 Cholesterol 136 mg/dL (50-200) 06/10/18 05:30 Total LDL Cholesterol 73 mg/dL (5-100) 06/10/18 05:30 HDL Cholesterol 53 mg/dL (40-60) 06/10/18 05:30 TSH 1.73 uIU/ml (0.358-3.74) 06/09/18 14:59 Digoxin 2.28 ng/ml (0.8-2.0) H 06/15/18 05:30 cxr: chf ecg: sr, nl intervals, no ischemic changes echo: 12/2015: nl lv/rv, no sig valve path, nl rvsp echo 05/2018: tds; mod-sev dec lvef, rv tds, mod mr, mild-mod tr, nl rvsp tele: afib with rvr 120s-140s mibi 03/2011: no ischemia/scar est cct 35 mins a/p: 88 m hx dementia, htn, hld, prostate ca here with sob. nstemi, new systolic chf: -elevated trop and ckmb c/w nstemi -ecg unremarkable -cont statin, asa, plavix. had hep gtt for 72 hrs. -echo shows newly reduced lvef and he has pulm congestion so agree with lasix 40 iv qd. no lisette 2/2 linda. cont bb if bp allows. -cont tele -further ischemic eval based on clinical course-->now dnr/dni per family sepsis, pna: -cont abx -icu care linda: -likely 2/2 sepsis -cr worse today -renal following htn: -stable/low hld: -statin held 2/2 elevated lfts elevated lfts: -likely shock liver from hypotensive episodes -cont to monitor, GI following pafib: -cont hep gtt for AC -rate not controlled with toprol po so given dig iv but also did not help and dig level is high today. Esmolol gtt was tried w/o success and now he is on dilt gtt, cont for now and titrate up prn. Will also start inderal po to see if helps. No amio 2/2 elevated lfts. DCCV likely will not keep him in SR as he has been going in and out of afib/sr frequently past few days. -cont tele
[2018-06-15] MEDS: AZITHROMYCIN IVPB 500 MG/250 ML BAG IVPB SCH (12:00)
--- NOTE | 2018-06-15 12:30 | PN ---
Teaching Attending Note Name of Resident: Jareth Kauffman ATTENDING PHYSICIAN STATEMENT I saw and evaluated the patient. I reviewed the resident's note and discussed the case with the resident. I agree with the resident's findings and plan as documented. SUBJECTIVE: Pt seen and examined in the ICU. Lethargic, tachypneic on BiPAP. Overnight discussions with family leaning towards comfort measures. Liver function worse today. OBJECTIVE: Vital Signs Period Temp Pulse Resp BP Sys/Boyer Pulse Ox Last 24 Hr 98.4 F-98.6 F 112-158 16-34 78-146/54-91 97-100 Intake & Output 06/12/18 06/13/18 06/14/18 06/15/18 23:59 23:59 23:59 23:59 Intake Total 1260 055 809 7045 Balance 1260 236 859 7119 Weight 98 kg 94.461 kg 94.432 kg 92.59 kg Gen: lethargic on BiPAP Heart: tachycardic, irregular Lung: decreased breath sounds at the bases Abd: soft, nontender Ext: + edema CBC, BMP 06/15/18 05:30 06/15/18 05:30 Active Medications Albuterol Sulfate (Ventolin 0.083% Nebulizer Soln -) 1 amp NEB Q4H PRN PRN Reason: SHORT OF BREATH/WHEEZING Last Admin: 06/11/18 00:34 Dose: 1 amp Albuterol/Ipratropium (Duoneb -) 1 amp NEB RQID [facility] Last Admin: 06/15/18 12:12 Dose: 1 amp Aspirin (Ecotrin -) 81 mg PO DAILY [facility] Last Admin: 06/14/18 10:38 Dose: 81 mg Chlorhexidine Gluconate (Hibiclens For Decolonization -) 1 applic TP HS [facility] Last Admin: 06/14/18 22:38 Dose: 1 applic Cholecalciferol (Vitamin D3 -) 1,000 unit PO DAILY [facility] Last Admin: 06/14/18 10:42 Dose: 1,000 unit Clopidogrel Bisulfate (Plavix -) 75 mg PO DAILY [facility] Last Admin: 06/14/18 10:37 Dose: 75 mg Furosemide (Lasix Injection -) 40 mg IVPUSH DAILY [facility] Last Admin: 06/15/18 10:17 Dose: 40 mg Heparin Sodium (Porcine) (Heparin -) 1,000 unit IVPUSH PRN PRN PRN Reason: Heparin Last Admin: 06/13/18 22:15 Dose: 1,000 unit Heparin Sodium (Porcine) (Heparin -) 5,000 unit IVPUSH PRN PRN PRN Reason: Heparin Last Admin: 06/15/18 10:10 Dose: 5,000 unit Azithromycin (Zithromax 500mg Ivpb (Pre-Docked)) 500 mg in 250 mls @ 250 mls/ hr IVPB DAILY [facility] Last Admin: 06/14/18 10:43 Dose: 250 mls/hr Ceftriaxone Sodium 1 gm/ (Dextrose) 50 mls @ 100 mls/hr IVPB DAILY [facility]; Protocol Last Admin: 06/15/18 11:16 Dose: 100 mls/hr Heparin Sodium (Porcine) 25, (000 unit/ Sodium Chloride) 500 mls @ 20 mls/hr IV TITR [facility]; Protocol Last Titration: 06/15/18 10:10 Dose: 1,250 unit/hr, 25 mls/hr Diltiazem HCl 125 mg/ Sodium (Chloride) 125 mls @ 5 mls/hr IVPB TITR [facility]; Protocol Last Admin: 06/15/18 08:10 Dose: 5 mg/hr, 5 mls/hr Morphine Sulfate (Morphine Sulfate) 1 mg IM Q4H PRN PRN Reason: PAIN LEVEL 4 - 6 Morphine Sulfate (Morphine Sulfate) 2 mg IVPUSH Q4H PRN PRN Reason: PAIN LEVEL 6-10 Pantoprazole Sodium (Protonix Iv) 40 mg IVPUSH DAILY [facility] Last Admin: 06/15/18 10:17 Dose: 40 mg Propranolol HCl (Inderal -) 20 mg PO Q6HPO [facility] ASSESSMENT AND PLAN: Acute Hypoxic Respiratory Failure Pneumonia Severe Sepsis Lactic Acidosis Acute Kidney Injury Acute Liver Failure Acute NSTEMI Acute Systolic Heart Failure Elevated LFTs Dementia - continue antibiotics - rate control - continue anticoagulation - lasix today - monitor urine output, creatinine - beta carole, ASA, plavix - trend LFTs - O2 to keep Spo2 >90% - BiPAP to assist in work of breathing - aspiration precautions - DVT prophylaxis - continue ICU monitoring - pt DNR/DNI, continue discussions regarding goals of care critical care time spent in reviewing chart, evaluating patient and formulating plan 35 min
[2018-06-15] MEDS: CLOPIDOGREL BISULFATE 75 MG TABLET (FP) PO SCH (12:36)
[2018-06-15] MEDS: ASPIRIN COATED 81 MG TABLET.EC PO SCH (12:36)
[2018-06-15] MEDS ORDERED: LORazepam 2 MG/ML SDV VIAL IVPUSH PRN (13:18)
[2018-06-15] MEDS: CHOLECALCIFEROL (VITAMIN D3) 1,000 UNIT TABLET (FP) PO SCH (13:34)
[2018-06-15] MEDS ORDERED: BACITRACIN 15 GM TUBE TOPICAL OINTMENT TP SCH (14:00)
[2018-06-15] MEDS: MORPHINE 100 MG in SODIUM CHLORIDE 98 ML IVPB SCH (14:07)
--- NOTE | 2018-06-15 14:31 | PN ---
Physical Exam: SUBJECTIVE: Patient seen and examined at bedside. Lethargic, minimally verbal. OBJECTIVE: Vital Signs Period Temp Pulse Resp BP Sys/Boyer Pulse Ox Last 24 Hr 98.4 F-98.6 F 112-158 16-34 78-146/54-91 97-99 GENERAL: Lethargic, increasingly difficult to arouse HEAD: NC/AT EYES: PERRLA, EOMI, +scleral icterus EARS, NOSE, THROAT: Moist mucous membranes. NECK: supple without lymphadenopathy LUNGS: Labored breathing, decreased breath sounds, diffuse crackles HEART: Tachycardic S1S2 ABDOMEN: soft, diffusely tender EXTREMITIES: 2+ pulses, warm, well-perfused, signficantly worsening edema x 4 extremities NEUROLOGICAL: could not assess SKIN: jaundiced diffusely Laboratory Results - last 24 hr 06/14/18 06/15/18 06/15/18 16:30 05:30 05:30 WBC 29.9 H Corrected WBC (auto) 25.13 RBC 3.19 L Hgb 10.3 L Hct 32.3 L MCV 101.2 H MCH 32.2 MCHC 31.8 L RDW 13.0 Plt Count 256 MPV 10.2 Absolute Neuts (auto) 23.7 H Neutrophils % 79.4 Neutrophils % (Manual) 75.8 Band Neutrophils % 1.0 Lymphocytes % 12.9 Lymphocytes % (Manual) 12.1 D Monocytes % 7.6 Monocytes % (Manual) 7 D Eosinophils % 0.0 D Eosinophils % (Manual) 0.0 Basophils % 0.1 Basophils % (Manual) 0.0 Myelocytes % (Man) 1 D Promyelocytes % (Man) 0 Blast Cells % (Manual) 0 Nucleated RBC % 8 H Metamyelocytes 1 D Hypochromia 0 Platelet Estimate Normal Polychromasia 1+ Poikilocytosis 0 Anisocytosis 1+ Microcytosis 0 Macrocytosis 1+ PT with INR INR PTT (Actin FS) 36.4 Sodium 146 H Potassium 4.9 Chloride 113 H Carbon Dioxide 22 Anion Gap 11 BUN 92 H Creatinine 2.5 H Creat Clearance w eGFR 24.44 Random Glucose 203 H Calcium 9.5 Phosphorus Magnesium Total Bilirubin 3.2 H Direct Bilirubin AST 1091 H ALT 2096 H Alkaline Phosphatase 217 H Total Protein 6.0 L Albumin 2.9 L Digoxin 06/15/18 06/15/18 06/15/18 05:30 05:30 05:30 WBC Corrected WBC (auto) RBC Hgb Hct MCV MCH MCHC RDW Plt Count MPV Absolute Neuts (auto) Neutrophils % Neutrophils % (Manual) Band Neutrophils % Lymphocytes % Lymphocytes % (Manual) Monocytes % Monocytes % (Manual) Eosinophils % Eosinophils % (Manual) Basophils % Basophils % (Manual) Myelocytes % (Man) Promyelocytes % (Man) Blast Cells % (Manual) Nucleated RBC % Metamyelocytes Hypochromia Platelet Estimate Polychromasia Poikilocytosis Anisocytosis Microcytosis Macrocytosis PT with INR 25.00 H INR 2.10 H PTT (Actin FS) Sodium 145 Potassium 5.4 H Chloride 116 H Carbon Dioxide 19 L Anion Gap 10 BUN 114 H* Creatinine 3.2 H Creat Clearance w eGFR 18.38 Random Glucose 163 H Calcium 8.4 L Phosphorus 4.1 Magnesium 2.7 H Total Bilirubin 3.5 H Direct Bilirubin 2.4 H AST 3191 H ALT 3400 H Alkaline Phosphatase 181 H Total Protein 5.3 L Albumin 2.5 L Digoxin 2.28 H Active Medications Generic Name Dose Route Start Last Admin Trade Name Freq PRN Reason Stop Dose Admin Albuterol Sulfate 1 amp 06/09/18 13:19 06/11/18 00:34 Ventolin 0.083% Nebulizer Soln - NEB 1 amp Q4H PRN Administration SHORT OF BREATH/WHEEZING Albuterol/Ipratropium 1 amp 06/09/18 16:00 06/15/18 12:12 Duoneb - NEB 1 amp RQID FLAVIO Administration Morphine Sulfate 100 mg/ 100 mls @ 1 mls/hr 06/15/18 13:30 06/15/18 14:07 Sodium Chloride IVPB 1 mg/hr TITR FLAVIO 1 mls/hr Administration Protocol 1 MG/HR Lorazepam 1 mg 06/15/18 13:18 Ativan Injection - IVPUSH Q6H PRN AGITATION ASSESSMENT/PLAN: 88 y/o M w/ PMHx dementia, legal blindness, HTN, unknown cardiac Hx (follows w/ chemical engineer per son), prostate Ca, admitted to ICU with severe PNA and NSTEMI. Developed Afib w/ RVR. Received bolus of amiodarone. Per recorded mean pressures , no significant hypotension has been observed. 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 MELD score 31. Not a candidate for liver transplant. Condition and prognosis explained in detail to family, who wish for comfort care measures. #comfort care -morphine drip titrated as needed -cont nebulizer treatments -NC 3L -ativan PRN for agitation -cont protonix -withhold further non-comfort oriented measures #dispo -ICU -DNR/DNI Visit type - Emergency Visit Emergency Visit: No - New Patient This patient is new to me today: No - Critical Care Critical Care patient: Yes Total Critical Care Time (in minutes): 40 Critical Care Statement: The care of this patient involved high complexity decision making to prevent further life threatening deterioration of the patient 's condition and/or to evaluate & treat vital organ system(s) failure or risk of failure.
[2018-06-15 14:41] VITALS: BMI 32.9
--- NOTE | 2018-06-15 16:56 | PN ---
Progress Note, Physician Chief Complaint: Unable to obtain - Current Medication List Current Medications: Active Medications Albuterol Sulfate (Ventolin 0.083% Nebulizer Soln -) 1 amp NEB Q4H PRN PRN Reason: SHORT OF BREATH/WHEEZING Last Admin: 06/11/18 00:34 Dose: 1 amp Albuterol/Ipratropium (Duoneb -) 1 amp NEB RQID FLAVIO Last Admin: 06/15/18 12:12 Dose: 1 amp Morphine Sulfate 100 mg/ (Sodium Chloride) 100 mls @ 1 mls/hr IVPB TITR FLAVIO; Protocol Last Admin: 06/15/18 14:07 Dose: 1 mg/hr, 1 mls/hr Lorazepam (Ativan Injection -) 1 mg IVPUSH Q6H PRN PRN Reason: AGITATION Pantoprazole Sodium (Protonix Iv) 40 mg IVPUSH DAILY [facility] - Objective Vital Signs: Vital Signs Temperature 37.0 C 06/15/18 10:00 Pulse Rate 124 H 06/15/18 14:00 Respiratory Rate 19 06/15/18 14:00 Blood Pressure 113/74 06/15/18 14:00 O2 Sat by Pulse Oximetry (%) 97 06/15/18 12:39 Constitutional: Yes: No Distress, Other (obtunded) Cardiovascular: Yes: Tachycardia, Pulse Irregular. No: Gallop, Murmur, Rub Respiratory: Yes: On BiPap, Rhonchi, Tachypnea. No: Regular, CTA Bilaterally, Rales, Wheezes Gastrointestinal: Yes: Normal Bowel Sounds, Soft. No: Distention, Tenderness Extremities: Yes: WNL Edema: Yes Edema: LLE: 1+, RLE: 1+ Labs: CBC, BMP 06/15/18 05:30 06/15/18 05:30 INR, PTT INR 2.10 (0.83-1.09) H 06/15/18 05:30 Problem List - Problems (1) Septic shock Code(s): A41.9 - SEPSIS, UNSPECIFIED ORGANISM; R65.21 - SEVERE SEPSIS WITH SEPTIC SHOCK (2) Pneumonia Code(s): J18.9 - PNEUMONIA, UNSPECIFIED ORGANISM Qualifiers: Pneumonia type: due to unspecified organism Laterality: left Lung location: lower lobe of lung Qualified Code(s): J18.1 - Lobar pneumonia, unspecified organism (3) Acute myocardial infarction Code(s): I21.9 - ACUTE MYOCARDIAL INFARCTION, UNSPECIFIED Qualifiers: Myocardial infarction type: unspecified Involved coronary artery: unspecified coronary artery Qualified Code(s): I21.9 - Acute myocardial infarction, unspecified (4) JOSE (acute kidney injury) Code(s): N17.9 - ACUTE KIDNEY FAILURE, UNSPECIFIED (5) Acute respiratory failure with hypoxia Code(s): J96.01 - ACUTE RESPIRATORY FAILURE WITH HYPOXIA (6) Acute metabolic encephalopathy Code(s): G93.41 - METABOLIC ENCEPHALOPATHY (7) Dementia Code(s): F03.90 - UNSPECIFIED DEMENTIA WITHOUT BEHAVIORAL DISTURBANCE (8) CHF (congestive heart failure) Code(s): I50.9 - HEART FAILURE, UNSPECIFIED Qualifiers: Heart failure type: systolic Heart failure chronicity: acute Qualified Code(s): I50.21 - Acute systolic (congestive) heart failure (9) Atrial fibrillation Code(s): I48.91 - UNSPECIFIED ATRIAL FIBRILLATION Qualifiers: Atrial fibrillation type: persistent Qualified Code(s): I48.1 - Persistent atrial fibrillation (10) Shock liver Code(s): K72.00 - ACUTE AND SUBACUTE HEPATIC FAILURE WITHOUT COMA Assessment/Plan (1) Septic shock Code(s): A41.9 - SEPSIS, UNSPECIFIED ORGANISM; R65.21 - SEVERE SEPSIS WITH SEPTIC SHOCK (2) Pneumonia Code(s): J18.9 - PNEUMONIA, UNSPECIFIED ORGANISM Qualifiers: Pneumonia type: due to unspecified organism Laterality: left Lung location: lower lobe of lung Qualified Code(s): J18.1 - Lobar pneumonia, unspecified organism (3) Acute myocardial infarction Code(s): I21.9 - ACUTE MYOCARDIAL INFARCTION, UNSPECIFIED Qualifiers: Myocardial infarction type: unspecified Involved coronary artery: unspecified coronary artery Qualified Code(s): I21.9 - Acute myocardial infarction, unspecified (4) JOSE (acute kidney injury) Code(s): N17.9 - ACUTE KIDNEY FAILURE, UNSPECIFIED (5) Acute respiratory failure with hypoxia Code(s): J96.01 - ACUTE RESPIRATORY FAILURE WITH HYPOXIA (6) Acute metabolic encephalopathy Code(s): G93.41 - METABOLIC ENCEPHALOPATHY (7) Dementia Code(s): F03.90 - UNSPECIFIED DEMENTIA WITHOUT BEHAVIORAL DISTURBANCE (8) CHF (9) Atrial fibrillation (10) Shock liver Plan -case d/w ICU team -concerning for cardiorenal syndrome -also still with afib with rvr -was continuing course this am which included bipap support, antibiotics, heart rate control, and diuretics -however in afternoon family met with ICU team and palliative care -now on comfort measures only -placed on morphine gtt -ativan for agitation
[2018-06-16] MEDS: MORPHINE 100 MG in SODIUM CHLORIDE 98 ML IVPB SCH (07:00)
[2018-06-16] MEDS: ALBUTEROL SO4 2.5/IPRATROPIUM 0.5 INH SOL 3 ML VIAL.NEB. NEB SCH ×5 (08:47→21:10)
[2018-06-16] MEDS ORDERED: PANTOPRAZOLE SODIUM 40 MG VIAL IVPUSH SCH (10:00)
--- NOTE | 2018-06-16 11:38 | PN ---
Progress Note, Physician Chief Complaint: Unable to obtain - Current Medication List Current Medications: Active Medications Albuterol Sulfate (Ventolin 0.083% Nebulizer Soln -) 1 amp NEB Q4H PRN PRN Reason: SHORT OF BREATH/WHEEZING Last Admin: 06/11/18 00:34 Dose: 1 amp Albuterol/Ipratropium (Duoneb -) 1 amp NEB RQID FLAVIO Last Admin: 06/16/18 08:47 Dose: Not Given Morphine Sulfate 100 mg/ (Sodium Chloride) 100 mls @ 1 mls/hr IVPB TITR FLAVIO; Protocol Last Admin: 06/16/18 07:00 Dose: 7 mg/hr, 7 mls/hr Lorazepam (Ativan Injection -) 1 mg IVPUSH Q6H PRN PRN Reason: AGITATION Last Admin: 06/16/18 00:37 Dose: 1 mg Pantoprazole Sodium (Protonix Iv) 40 mg IVPUSH DAILY [facility]LA[facility]IO - Objective Vital Signs: Vital Signs Temperature 37.0 C 06/15/18 10:00 Pulse Rate 142 H 06/16/18 08:00 Respiratory Rate 10 06/16/18 09:00 Blood Pressure 86/50 L 06/16/18 08:00 O2 Sat by Pulse Oximetry (%) 91 L 06/16/18 09:00 Constitutional: Yes: Other (sedated) Cardiovascular: Yes: Tachycardia, Pulse Irregular. No: Gallop, Murmur, Rub Respiratory: Yes: Regular, On Nasal O2, Rhonchi. No: CTA Bilaterally, Rales, Wheezes Gastrointestinal: Yes: Normal Bowel Sounds, Soft. No: Distention, Tenderness Extremities: Yes: WNL Edema: No Labs: CBC, BMP 06/15/18 05:30 06/15/18 05:30 INR, PTT INR 2.10 (0.83-1.09) H 06/15/18 05:30 Problem List - Problems (1) Septic shock Code(s): A41.9 - SEPSIS, UNSPECIFIED ORGANISM; R65.21 - SEVERE SEPSIS WITH SEPTIC SHOCK (2) Pneumonia Code(s): J18.9 - PNEUMONIA, UNSPECIFIED ORGANISM Qualifiers: Qualified Code(s): J18.1 - Lobar pneumonia, unspecified organism (3) Acute myocardial infarction Code(s): I21.9 - ACUTE MYOCARDIAL INFARCTION, UNSPECIFIED Qualifiers: Qualified Code(s): I21.9 - Acute myocardial infarction, unspecified (4) JOSE (acute kidney injury) Code(s): N17.9 - ACUTE KIDNEY FAILURE, UNSPECIFIED (5) Acute respiratory failure with hypoxia Code(s): J96.01 - ACUTE RESPIRATORY FAILURE WITH HYPOXIA (6) Acute metabolic encephalopathy Code(s): G93.41 - METABOLIC ENCEPHALOPATHY (7) Dementia Code(s): F03.90 - UNSPECIFIED DEMENTIA WITHOUT BEHAVIORAL DISTURBANCE (8) CHF (congestive heart failure) Code(s): I50.9 - HEART FAILURE, UNSPECIFIED Qualifiers: Qualified Code(s): I50.21 - Acute systolic (congestive) heart failure (9) Atrial fibrillation Code(s): I48.91 - UNSPECIFIED ATRIAL FIBRILLATION Qualifiers: Qualified Code(s): I48.1 - Persistent atrial fibrillation (10) Shock liver Code(s): K72.00 - ACUTE AND SUBACUTE HEPATIC FAILURE WITHOUT COMA Assessment/Plan (1) Septic shock Code(s): A41.9 - SEPSIS, UNSPECIFIED ORGANISM; R65.21 - SEVERE SEPSIS WITH SEPTIC SHOCK (2) Pneumonia Code(s): J18.9 - PNEUMONIA, UNSPECIFIED ORGANISM Qualifiers: Pneumonia type: due to unspecified organism Laterality: left Lung location: lower lobe of lung Qualified Code(s): J18.1 - Lobar pneumonia, unspecified organism (3) Acute myocardial infarction Code(s): I21.9 - ACUTE MYOCARDIAL INFARCTION, UNSPECIFIED Qualifiers: Myocardial infarction type: unspecified Involved coronary artery: unspecified coronary artery Qualified Code(s): I21.9 - Acute myocardial infarction, unspecified (4) JOSE (acute kidney injury) Code(s): N17.9 - ACUTE KIDNEY FAILURE, UNSPECIFIED (5) Acute respiratory failure with hypoxia Code(s): J96.01 - ACUTE RESPIRATORY FAILURE WITH HYPOXIA (6) Acute metabolic encephalopathy Code(s): G93.41 - METABOLIC ENCEPHALOPATHY (7) Dementia Code(s): F03.90 - UNSPECIFIED DEMENTIA WITHOUT BEHAVIORAL DISTURBANCE (8) CHF (9) Atrial fibrillation (10) Shock liver Plan -plan d/w son at bedside -patient is comfortable -continue morphine gtt -prn ativan -comfort measures only
--- NOTE | 2018-06-16 11:39 | PN ---
Teaching Attending Note Name of Resident: Jareth Kauffman ATTENDING PHYSICIAN STATEMENT I saw and evaluated the patient. I reviewed the resident's note and discussed the case with the resident. I agree with the resident's findings and plan as documented. SUBJECTIVE: Pt seen and examined in the ICU. Now on morphine gtt, relatively comfortable. OBJECTIVE: Vital Signs Period Temp Pulse Resp BP Sys/Boyer Pulse Ox Last 24 Hr 112-145 9-21 86-119/50-76 91-97 Intake & Output 06/13/18 06/14/18 06/15/18 06/16/18 23:59 23:59 23:59 23:59 Intake Total 353 745 5676 84 Balance 056 873 9970 84 Weight 94.461 kg 94.432 kg 92.59 kg 92.646 kg Gen: somnolent, breathing nonlabored Heart: tachycardic, irregular Lung: decreased breath sounds at the bases Abd: soft, nontender Ext: + edema CBC, BMP 06/15/18 05:30 06/15/18 05:30 Active Medications Albuterol Sulfate (Ventolin 0.083% Nebulizer Soln -) 1 amp NEB Q4H PRN PRN Reason: SHORT OF BREATH/WHEEZING Last Admin: 06/11/18 00:34 Dose: 1 amp Albuterol/Ipratropium (Duoneb -) 1 amp NEB RQID FLAVIO Last Admin: 06/16/18 08:47 Dose: Not Given Morphine Sulfate 100 mg/ (Sodium Chloride) 100 mls @ 1 mls/hr IVPB TITR FLAVIO; Protocol Last Admin: 06/16/18 07:00 Dose: 7 mg/hr, 7 mls/hr Lorazepam (Ativan Injection -) 1 mg IVPUSH Q6H PRN PRN Reason: AGITATION Last Admin: 06/16/18 00:37 Dose: 1 mg Pantoprazole Sodium (Protonix Iv) 40 mg IVPUSH DAILY FLAVIO ASSESSMENT AND PLAN: Acute Hypoxic Respiratory Failure Pneumonia Severe Sepsis Lactic Acidosis Acute Kidney Injury Acute Liver Failure Acute NSTEMI Acute Systolic Heart Failure Elevated LFTs Dementia - comfort measures - titrate morphine to RR <20 - ativan as needed - discussed with son at bedside - pt DNR/DNI
--- NOTE | 2018-06-16 11:49 | PN ---
Physical Exam: SUBJECTIVE: Patient seen and examined at bedside. Resting comfortably on morphine gtt. OBJECTIVE: Vital Signs Period Temp Pulse Resp BP Sys/Boyer Pulse Ox Last 24 Hr 112-145 9-21 86-119/50-76 91-97 GENERAL: somnolent, on morphine gtt and receiving ativan HEAD: NC/AT EYES: PERRLA, EOMI, +scleral icterus increasing EARS, NOSE, THROAT: Moist mucous membranes. NECK: supple without lymphadenopathy LUNGS: Labored breathing, decreased breath sounds, diffuse crackles HEART: Tachycardic S1S2 ABDOMEN: soft EXTREMITIES: 2+ pulses, warm, well-perfused, signficantly worsening edema x 4 extremities NEUROLOGICAL: could not assess SKIN: jaundiced diffusely and increasing Active Medications Generic Name Dose Route Start Last Admin Trade Name Freq PRN Reason Stop Dose Admin Albuterol Sulfate 1 amp 06/09/18 13:19 06/11/18 00:34 Ventolin 0.083% Nebulizer Soln - NEB 1 amp Q4H PRN Administration SHORT OF BREATH/WHEEZING Albuterol/Ipratropium 1 amp 06/09/18 16:00 06/16/18 08:47 Duoneb - NEB Not Given RQID FLAVIO Morphine Sulfate 100 mg/ 100 mls @ 1 mls/hr 06/15/18 13:30 06/16/18 07:00 Sodium Chloride IVPB 7 mg/hr TITR FLAVIO 7 mls/hr Administration Protocol 1 MG/HR Lorazepam 1 mg 06/15/18 13:18 06/16/18 00:37 Ativan Injection - IVPUSH 1 mg Q6H PRN Administration AGITATION Pantoprazole Sodium 40 mg 06/16/18 10:00 Protonix Iv IVPUSH DAILY FLAVIO ASSESSMENT/PLAN: 88 y/o M w/ PMHx dementia, legal blindness, HTN, unknown cardiac Hx (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 Developed Afib w/ RVR. Received bolus of amiodarone. Per recorded mean pressures , no significant hypotension has been observed. 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 MELD score 31. Not a candidate for liver transplant. Condition and prognosis explained in detail to family, who wish for comfort care measures. #comfort care -morphine drip titrated as needed -cont nebulizer treatments -NC 3L -ativan PRN for agitation -cont protonix -withhold further non-comfort oriented measures #dispo -ICU -DNR/DNI Visit type - Emergency Visit Emergency Visit: No - New Patient This patient is new to me today: No - Critical Care Critical Care patient: Yes Total Critical Care Time (in minutes): 40 Critical Care Statement: The care of this patient involved high complexity decision making to prevent further life threatening deterioration of the patient 's condition and/or to evaluate & treat vital organ system(s) failure or risk of failure.
[2018-06-16] MEDS: HEPARIN - 25,000 UNIT in SODIUM CHLORIDE 495 ML IV SCH (13:15)
--- NOTE | 2018-06-16 17:55 | PN ---
Progress Note (short form) - Note Progress Note: Patient status changed to comfort care measures only. no further renal intervention warranted will sign off case. Thank you Cedric Marcos DO
[2018-06-16] MEDS ORDERED: LORazepam 2 MG/ML SDV VIAL IVPUSH PRN (22:32)
[2018-06-16] MEDS ORDERED: ALBUTEROL SO4 0.083% IH SOL 2.5 MG/3 ML VIAL.NEB. NEB PRN (22:32)
[2018-06-16] MEDS ORDERED: MORPHINE 100 MG in SODIUM CHLORIDE 98 ML IVPB SCH (22:45)
[2018-06-17 06:08] VITALS: TEMP 98.4
[2018-06-17] MEDS: ALBUTEROL SO4 2.5/IPRATROPIUM 0.5 INH SOL 3 ML VIAL.NEB. NEB SCH ×3 (07:45→15:13)
[2018-06-17] MEDS ORDERED: PANTOPRAZOLE SODIUM 40 MG VIAL IVPUSH SCH (10:00)
[2018-06-17 10:55] VITALS: BP 85/50; PULSE 92
--- NOTE | 2018-06-17 11:46 | PN ---
Progress Note, Physician Chief Complaint: Unable to obtain - Current Medication List Current Medications: Active Medications Albuterol Sulfate (Ventolin 0.083% Nebulizer Soln -) 1 amp NEB Q4H PRN PRN Reason: SHORT OF BREATH/WHEEZING Albuterol/Ipratropium (Duoneb -) 1 amp NEB RQID FLAVIO Last Admin: 06/17/18 11:10 Dose: 1 amp Morphine Sulfate 100 mg/ (Sodium Chloride) 100 mls @ 1 mls/hr IVPB TITR FLAVIO; Protocol Last Admin: 06/16/18 23:19 Dose: 1 mg/hr, 1 mls/hr Lorazepam (Ativan Injection -) 1 mg IVPUSH Q6H PRN PRN Reason: AGITATION Pantoprazole Sodium (Protonix Iv) 40 mg IVPUSH DAILY [facility] Last Admin: 06/17/18 10:31 Dose: 40 mg - Objective Vital Signs: Vital Signs Temperature 36.9 C 06/17/18 10:00 Pulse Rate 92 H 06/17/18 10:00 Respiratory Rate 10 06/17/18 10:00 Blood Pressure 85/50 L 06/17/18 10:00 O2 Sat by Pulse Oximetry (%) 91 L 06/16/18 21:00 Constitutional: Yes: No Distress, Other (sedated) Cardiovascular: Yes: Tachycardia, Pulse Irregular Respiratory: Yes: On Nasal O2, Rhonchi Labs: CBC, BMP 06/15/18 05:30 06/15/18 05:30 INR, PTT INR 2.10 (0.83-1.09) H 06/15/18 05:30 Problem List - Problems (1) Septic shock Code(s): A41.9 - SEPSIS, UNSPECIFIED ORGANISM; R65.21 - SEVERE SEPSIS WITH SEPTIC SHOCK (2) Pneumonia Code(s): J18.9 - PNEUMONIA, UNSPECIFIED ORGANISM Qualifiers: Pneumonia type: due to unspecified organism Laterality: left Lung location: lower lobe of lung Qualified Code(s): J18.1 - Lobar pneumonia, unspecified organism (3) Acute myocardial infarction Code(s): I21.9 - ACUTE MYOCARDIAL INFARCTION, UNSPECIFIED Qualifiers: Myocardial infarction type: unspecified Involved coronary artery: unspecified coronary artery Qualified Code(s): I21.9 - Acute myocardial infarction, unspecified (4) JOSE (acute kidney injury) Code(s): N17.9 - ACUTE KIDNEY FAILURE, UNSPECIFIED (5) Acute respiratory failure with hypoxia Code(s): J96.01 - ACUTE RESPIRATORY FAILURE WITH HYPOXIA (6) Acute metabolic encephalopathy Code(s): G93.41 - METABOLIC ENCEPHALOPATHY (7) Dementia Code(s): F03.90 - UNSPECIFIED DEMENTIA WITHOUT BEHAVIORAL DISTURBANCE (8) CHF (congestive heart failure) Code(s): I50.9 - HEART FAILURE, UNSPECIFIED Qualifiers: Heart failure type: systolic Heart failure chronicity: acute Qualified Code(s): I50.21 - Acute systolic (congestive) heart failure (9) Atrial fibrillation Code(s): I48.91 - UNSPECIFIED ATRIAL FIBRILLATION Qualifiers: Atrial fibrillation type: persistent Qualified Code(s): I48.1 - Persistent atrial fibrillation (10) Shock liver Code(s): K72.00 - ACUTE AND SUBACUTE HEPATIC FAILURE WITHOUT COMA Assessment/Plan (1) Septic shock Code(s): A41.9 - SEPSIS, UNSPECIFIED ORGANISM; R65.21 - SEVERE SEPSIS WITH SEPTIC SHOCK (2) Pneumonia Code(s): J18.9 - PNEUMONIA, UNSPECIFIED ORGANISM Qualifiers: Pneumonia type: due to unspecified organism Laterality: left Lung location: lower lobe of lung Qualified Code(s): J18.1 - Lobar pneumonia, unspecified organism (3) Acute myocardial infarction Code(s): I21.9 - ACUTE MYOCARDIAL INFARCTION, UNSPECIFIED Qualifiers: Myocardial infarction type: unspecified Involved coronary artery: unspecified coronary artery Qualified Code(s): I21.9 - Acute myocardial infarction, unspecified (4) JOSE (acute kidney injury) Code(s): N17.9 - ACUTE KIDNEY FAILURE, UNSPECIFIED (5) Acute respiratory failure with hypoxia Code(s): J96.01 - ACUTE RESPIRATORY FAILURE WITH HYPOXIA (6) Acute metabolic encephalopathy Code(s): G93.41 - METABOLIC ENCEPHALOPATHY (7) Dementia Code(s): F03.90 - UNSPECIFIED DEMENTIA WITHOUT BEHAVIORAL DISTURBANCE (8) CHF (9) Atrial fibrillation (10) Shock liver Plan -continue comfort measures
--- NOTE | 2018-06-18 07:04 | HOSP ---
Physical Examination Vital Signs: Vital Signs Temperature 98.4 F 06/17/18 10:00 Pulse Rate 92 H 06/17/18 10:00 Respiratory Rate 10 06/17/18 10:00 Blood Pressure 85/50 L 06/17/18 10:00 O2 Sat by Pulse Oximetry (%) 96 06/17/18 09:00 Labs: CBC, BMP 06/15/18 05:30 06/15/18 05:30 Hospitalist Encounter Assessment: NOTE Paged by nurse to assess patient. Son at bedside with patient, however not present during examination. Upon exam, pt had no response to sternal rub. Absent corneal reflex. Absent pupillary reflex. B/l carotid pulses absent. B/l radial pulses absent. Upon auscultation, no breaths sounds heard, no heart sounds heard. Time of : 9:14pm. Visit type - Emergency Visit Emergency Visit: Yes ED Registration Date: 06/09/18 Care time: The patient presented to the Emergency Department on the above date and was hospitalized for further evaluation of their emergent condition. - New Patient This patient is new to me today: Yes Date on this admission: 06/18/18 - Critical Care Critical Care patient: No
[2018-07-05 11:20] LABS: CARBOXYHEMOGLOBIN 1.7 gm% (0.5-2.0)
== END 2018-06-17 22:00 | disposition expired | DRG 871 ==
LOC: JER 10:42 → JERBED 13:16 → JICU 18:57 → J7W 06-16 12:54
PROVIDERS: ADMIT Internal Medicine; ATTEND Internal Medicine
PROC: 5A09557 Assistance with Respiratory Ventilation, Greater than 96 Consecutive Hours, Continuous Positive Airway Pressure (ICD-10-PCS; principal; 2018-06-09)
DX: A41.9 Sepsis, unspecified organism (principal); J18.9 Pneumonia, unspecified organism; J96.01 Acute respiratory failure with hypoxia; I21.4 Non-ST elevation (NSTEMI) myocardial infarction; I50.21 Acute systolic (congestive) heart failure; N17.0 Acute kidney failure with tubular necrosis; G93.41 Metabolic encephalopathy; K72.00 Acute and subacute hepatic failure without coma; I48.1 Persistent atrial fibrillation; E87.2 Acidosis; F03.90 Unspecified dementia, unspecified severity, without behavioral disturbance, psychotic disturbance, mood disturbance, and anxiety; I11.0 Hypertensive heart disease with heart failure; E78.5 Hyperlipidemia, unspecified; I95.9 Hypotension, unspecified; E87.5 Hyperkalemia; R00.0 Tachycardia, unspecified
CPT/HCPCS: 36415; 36600; 71045-TC-FY; 76705-TC; 76775-TC; 76856-TC; 80048; 80053; 80061; 80162; 82248; 82375; 82550; 82553; 82803; 83050; 83605; 83721; 83735; 83880; 84100; 84443; 84484; 85025; 85379; 85610; 85730; 87040; 87804; 90688; 93005; 93010; 93306-TC; 93976; 94640; 94660; 97161-GP; 99285-25; G0009; J0131; J1644